=== PATIENT | female | born 1950 | race Caucasian/White ===

== ENCOUNTER → 2017-03-06 | Outpatient (CLI) | payer MEDICARE, MEDICAID ==
--- NOTE | 2017-03-06 12:21 | RADIOLOGY REPORT PS360 ---
FEMUR-RT-2 VIEWS HISTORY: RT THIGH PAIN ORDERING PHYSICIAN: Lebron Baez MD PATIENT AGE: 66 years COMPARISON: None FINDINGS: There are mild osteoarthritic changes of the tibia. There is bowing of the femur anteriorly and medially. 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 No fracture or dislocation. No lytic or blastic change. IMPRESSION: 1. No acute finding. 2. Osteoarthritis of the hip with bowing of the femur medially and anteriorly.
--- NOTE | 2017-03-06 12:21 | RADIOLOGY REPORT PS360 ---
FEMUR-RT-2 VIEWS HISTORY: RT THIGH PAIN ORDERING PHYSICIAN: Lebron Baez MD PATIENT AGE: 66 years COMPARISON: None FINDINGS: There are mild osteoarthritic changes of the tibia. There is bowing of the femur anteriorly and medially. There has been a prior dywpa-vka-ndru amputation. No fracture or dislocation. No lytic or blastic change. IMPRESSION: 1. No acute finding. 2. Osteoarthritis of the hip with bowing of the femur medially and anteriorly.
== END ==
LOC: RAD 09:50
DX: M79.651 Pain in right thigh (principal)

== ENCOUNTER 2017-03-07 09:24 | Emergency (ER) | payer MEDICARE, MEDICAID ==
[~2017-03-07] VITALS: Ht 165.1 cm; Wt 72.6 kg
--- NOTE | 2017-03-07 09:48 | [facility]gent Treatment Center Report ---
History of Present Issue Date/Time Seen by Provider 03/07/17 0948 Visit Reason Pt arrived:Walked Presenting Problem:PT ADVISES SHE VOMITED ONCE THIS MORNING AND SHE NOTICED SOME BLOOD ON HER TOILET PAPER THIS AM. PT HAS APPT WITH ON THURSDAY Location if Accident: Onset of symptoms date/time:/ or onset unknown for:MEDICAL HX UNKNOWN Have you (or family members/close friends) recently traveled outside the [place]? N If Yes, where/when: Have you had exposure to infectious disease within the past month? TB? Other? Specify: Source patient Exam Limitations no limitations Comment 66-year-old female presents today with complaints of vomiting 4 this a.m. and when she goes to the bathroom she had large amount of blood on the toilet paper. Patient states she has not had period in many years and believes it was coming from her vagina. Patient states she has a history of esophageal cancer. Has an appointment Thursday with Dr. Baez ALLERGIES Coded Allergies: EGGS (FOOD) (NA-NAUSEA 06/26/15) MILK (FOOD) (NA-NAUSEA 06/26/15) promethazine (WHOLE BODY ACHES 06/26/15) Home Medications Reported Medications MISCELLANEOUS (UNKNOWN MEDICATION) Omeprazole (Prilosec 20MG) 20 MG PO BID Metoclopramide Hydrochloride (Reglan 10MG) 10 MG PO TID Polyethylene Glycol 3350 (Miralax) 17 GM PO DAILY Sennosides (Senna Soft) 15 MG PO Q AFTERNOON VIT C/E/ZN/COPPR/LUTEIN/ZEAXAN (Ocuvite Lutein & Zeaxanthin Cp) 1 CAP PO DAILY History Medical History General Angina: No NC: No Hypertension? No Hyperlipidemia? No CHF? No COPD? No Asthma? No Hernia? Yes CVA? No Seizures? No Diabetes? No UTI? Yes Stones? No GB Disease: Yes Hepatitis? No Cataracts? No Glaucoma? No MRSA? No TB? No Cancer? Yes Site: ESOPHAGUS CANCER Immunization HX DT/Tetanus Unknown Flu NEVER Pneumonia NEVER Surgical Hx Previous Surgery?Y LEG/RIGHT BONE REMOVED KN STOMACH HAND, FINGERS REMOVED LFT BACK - BONE SPURS CHOLECYSTECTOMY Family History Family HX Diabetes Yes CAD Yes Hypertension No Hyperlipidemia No Cancer Yes TB No Social History Smoking Hx Smoker: Never Smoker Tobacco: No Alcohol Alcohol: No Review of Systems All Other Systems Reviewed and Negative Gastrointestinal see HPI, vomiting Genitourinary see HPI, vaginal discharge. Physical Exam Vital Signs Vital Signs Date Time Temp Pulse Resp B/P Pulse O2 O2 Flow FiO2 Ox Delivery Rate 03/07 1118 98.7 106 16 98 03/07 0937 98.7 106 16 98 - WBC >12,000 or <4,000 or 10% bands? 2 or more SIRS Criteria Met? B/P: MAP:77 Creatinine >2.0? UA output<0.5ml/kg/hr for 2 hrs? Platelet count >100,000? Lactate >2.0mmol/1? INR >1.2 or PTT > than 60 sec? Evidence of Organ Dysfunction? Provider documented clinical suspician of infection? Sepsis Criteria Count: 1 Sepsis Risk: General Appearance normal appearance, no apparent distress Respiratory Status Yes: trachea midline, chest symmetrical. No: respiratory distress. Lung Sounds bilateral: normal breath sounds, lungs clear. Cardiovascular normal exam, regular rate/rhythm, no peripheral edema Extremities prosthesis to RIGHT lower extremity Rectal normal exam, normal rectal tone, heme positive stool Neurologic alert, normal exam, oriented x 3 Medical Decision Making LABS/Meds/Orders Pt receiving controlled substance in ED? No Results/Orders Laboratory Tests 03/07/17 1103: Stool Occult Blood POSITIVE 03/07/17 1035: Sodium 140, Potassium 4.1, Chloride 105, Carbon Dioxide 30, BUN 22 H, Creatinine 0.9, Estimated Creat Clear 70, Estimated GFR (MDRD) 63, Glucose 132 H, Calcium 9.0, Total Bilirubin 0.3, AST 17, ALT 21, Alkaline Phosphatase 110, Total Protein 7.3, Albumin 3.4, Globulin 3.9 H, Albumin/Globulin Ratio 0.9 L 03/07/17 0958: WBC 8.2, RBC 4.41, Hgb 12.1 L, Hct 39.1, MCV 88.7, RDW 14.3, Plt Count 197, Gran % 85.9 H, Gran # 7.0, Total Counted 100, Lymphocytes % 11.2, Monocytes % 2.9, Neutrophils 78 H, Lymphocytes (Manual) 13, Lymphocytes # 0.9, Monocytes ( Manual) 8, Monocytes # 0.2, Eosinophils # (Manual) 1, Platelet Estimate NORMAL, PUBS MCHC 30.9 L, MCH 27.4 Orders Procedure Date/time Status STOOL OCCULT BLOOD 03/07 1042 Complete DIFFERENTIAL-WBC 03/07 0958 Complete CBC WITH AUTO DIFF 03/07 948 Complete CHEM 12 PROFILE 03/07 948 Complete Urine Test, Perform/ 03/07 0947 Active XRAY/CT/US XRAY/CT/US Ultrasound pelvis US Interpretation by discussed w/radiologist (garland) US results normal, Milagro stated uterus and ovaries are within normal limits, no free fluid Departure Departure Time of Disposition 1004 Disposition DC Home or Self Care(routine) Clinical Impression Primary Impression: Vomiting Qualifiers: Vomiting type: unspecified Vomiting Intractability: unspecified Nausea presence: without nausea Qualified Code: R11.11 - Vomiting without nausea Secondary Impressions: Positive occult stool blood test Condition STABLE Referrals Nestor HERNANDEZ,Lebron (Family) Patient Instructions DI for Vomiting -- Adult, Fecal Occult Blood Test, Nausea and Vomiting-Adult Additional Instructions Follow-up with PCP on Thursday, discussed further workup for his positive occult blood Zofran as needed for nausea Symptoms worsen or do not improve return or be seen in the ER Kimberyl diet and advance as tolerated Increase fluids Discharge Counseling Counseled pt/family regarding diagnosis, test results, medications/RX, home care, follow up needs Prescriptions Current Visit Scripts ONDANSETRON HCL (Zofran 4MG Tab) 4 MG PO Q8HP PRN NAUSEA AND VOMITING 3 Days at 1120
[2017-03-07 10:14] LABS: HEMOGLOBIN 12.1 g/dL (12.2-16.2); LYMPH # 0.9 K/mm3 (0.7-4.5); LYMPH % 11.2 % (10-50.0)
[2017-03-07 10:32] LABS: NEUTROPHILS 78 % (42-76)
--- NOTE | 2017-03-07 11:06 | RADIOLOGY REPORT PS360 ---
US PELVIS-TRANSVAGINAL ONLY HISTORY: vaginal bleeding postmenopausal bleeding. Vaginal bleeding? The patient states she thinks of blood may related to her bowel movement. Patient Age: 66 years: Female Ordering Physician: Unique Pacheco TECHNIQUE: Transvaginal pelvic ultrasound COMPARISON CT abdomen pelvis from February 2012 : FINDINGS. UTERUS: Appears normal in size:. 5.3 cm length x2.1 similar AP chest 3.4 cm transverse. Endometrial stripe is thin measuring 2.6 mm AP. No uterine mass identified Ovaries within normal limits bilaterally with normal color Doppler flow Right ovary: measures 1.2 x 0.9 x 1 cm. Unremarkable normal size. Left ovary: Unremarkable. Normal size 1.5 x 0.8 x 1 cm. . No free fluid in pelvis/no fluid in cul-de-sac IMPRESSION: no abnormalities identified Small postmenopausal uterus appears normal size but no uterine mass. . Endometrial stripe satisfactory Ovaries appear normal in size with no significant findings. No fluid in cul-de-sac
[2017-03-07 11:15] LABS: STOOL OCCULT BLOOD POSITIVE (NEG)
[2017-03-07 11:18] VITALS: BP 107/63
--- OUTSIDE RECORDS SUMMARY | 2017-03-18 17:35 | External Medical Summary Rpt ---
Author Author , JIM FERNANDEZ Address Unknown Phone [email or web address] Care Team Providers Care Head Buyer Tobacco Name Role Phone ARNDAVID ROCAEL, ARNOLD Unavailable Unavailable ROCAEL ARNOLD ROCAEL, ARNOLD Unavailable Unavailable ROCAEL AYARAM, RAGHU, AYARAM, Unavailable Unavailable RAGHU BEINEKE PRAFUL, BEINEKE Unavailable Unavailable PRAFUL BESSON PATRICA, BESSON Unavailable Unavailable PATRICA BESSON, LONNIE A, Unavailable Unavailable BESSON, LONNIE A [facility] Unavailable Unavailable LIMB C, [facility] Unavailable Unavailable LIM[facility], [facility] DICKEY ALL, DICKEY ALL Unavailable Unavailable MAURICIO CHRISTIAN, MAURICIO Unavailable Unavailable CHRISTIAN [facility] & Unavailable [facility]available [facility] CHIPPS MATT & Unavailable Unavailable DUBILIER, CHIPPS MATT & DUBILIER YOUNG SOTO, Unavailable Unavailable YOUNG SOTO [facility] Unavailable Unavailable [facility], [facility] Unavailable Unavailable [facility], [facility] Unavailable Unavailable LAB, [facility] FILIPPO PIERRE, Unavailable Unavailable FILIPPO PIERRE ROSEMARY BARKLEYLAS, Unavailable Unavailable FILIPPO, [facility] Unavailable [facility]available [facility], [facility] CECILIA PHI, Unavailable Unavailable CECILIA PHI KELVIN, CAROLE, KELVIN, Unavailable Unavailable CAROLE FALLIS RONI, FALLIS Unavailable Unavailable RONI INTERMEDIATE TEACHER PROSTHETICS & Unavailable Unavailable ORTHOTI, INTERMEDIATE TEACHER PROSTHETICS & ORTHOTI INTERMEDIATE TEACHER PROSTHETICS & Unavailable Unavailable ORTHOTI, INTERMEDIATE TEACHER PROSTHETICS & ORTHOTI [facility] Un[facility] Unavailable INC, [facility] NYDIA MATHEW, QUINCY, Unavailable Unavailable NYDIA [facility], Unavailable Unavailable [facility], Unavailable Unavailable [facility] IMAM MOH, IMAM MOH Unavailable Unavailable JAMES BROWNE KEE, Unavailable Unavailable JAMES Willingham [facility], Unavailable Unavailable [facility] Un[facility], [facility] Cheri Richmond MD, Unavailable Unavailable Cheri Richmond MD [facility] Unavailable Unavailable [facility], [facility] Unavailable Unavailable HOLDINGS, [facility] Unavailable Unavailable INTERNAL MED, [facility] CAL[place]RESE ROCAEL, CALABRESE Unavailable Unavailable ROCAEL [facility] Unavailable Unavailable SERVICES, [facility] ZAYNAB WORTHY Unavailable Unavailable ZAYNAB SOSA, Unavailable Unavailable ZAYNAB SOSA, Unavailable Unavailable ALEM QUESADA, Unavailable Unavailable ALEM WORTHY JR, Unavailable Unavailable ERLIN HERNANDEZ JR, JR Unavailable Unavailable F, ERLIN BELLO JR F RUTHY ESTEVEZ, Unavailable Unavailable RUTHY ESTEVEZ JAMES S, Unavailable Unavailable ALEM DELEON MUSIC, MUSIC Unavailable Unavailable MUSIC ELIZABETH, MUSIC ELIZABETH Unavailable Unavailable ROWAN QAI, ROWAN QAI Unavailable Unavailable [facility] Unavailable Unavailable LAB, [facility] Unavailable Unavailable LAB, [facility] GOMES MAHSA, GOMES MAHSA Unavailable Unavailable GOMES, PATRICK, GOMES, Unavailable Unavailable PATRICK BLANCA TOD, BLANCA TOD Unavailable Unavailable SCHULSTPRISCA, BRENDAN, Unavailable Unavailable ANURAGSTAD, BRENDAN RANDEE, THANG Parrish, RANDEE, Unavailable Unavailable THANG Parrish [facility] Unavailable Unavailable EQUIPME, [facility] Unavailable Unavailable E[facility], [facility] KARIME JUAREZ, Unavailable Unavailable MILAN JUAREZARET H [facility], Unavailable Unavailable [facility] USERY AND, USERY AND Unavailable Unavailable KEYUR WRIGHT Unavailable Unavailable Purpose Continuity of Care Document - 06-08-2007 through 2016 Problems Code Diagnosis DOS Provider Status [id number] ACQUIRED 12-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 BILATERAL R35449 VITREOUS 08-27-2016 [facility] [place], N RIGHT EYE P.S.[facility]. K90046 VITREOUS 08-27-2016 [facility] [place], N LEFT EYE P.S.C. J069 ACUTE UPPER 06-02-2016 [facility] RESPIRATORY INFECTION UNSPECIFIED [id number] PAIN IN 04-27-2016 [facility] RIGHT LEG HOME [facility]ICAL EQUIPME N62838 PAIN IN 04-27-2016 [facility] LEFT LEG HOME MEDICAL EQUIPME [id number] COMPLETE 04-27-2016 [facility] TRAUM AMP HOME BETWN KNEE MEDICAL ANKLE LT EQUIPME LEG SEQ Z9710 PRESENCE 04-27-2016 [facility] ARTIFICIAL HOME LIMB MEDICAL COMPLETE EQUIPME PARTIAL UNS M150 PRIMARY 11-15-2015 [facility] GENERALIZED OSTEOARTHRI TIS M1611 UNILATERAL 10-30-2015 [place] PRIMARY [facility] OSTEOARTHRI IMAGING ASS TIS RIGHT HIP N23460 PAIN IN 10-30-2015 [place] RIGHT HIP MEDICAL IMAGING ASS H3531 NONEXUDATIV 08-22-2015 [facility] [place], AGE-RELATED P.S.C. MACULAR DEGENERATIO N R634 ABNORMAL 07-27-2015 [facility] R700 ELEVATED 07-27-2015 [facility]OC[facility]TE [facility] INC SEDIMENTATI ON RATE R937 ABN FIND ON 07-27-2015 [place] DX IMAG MEDICAL OTH PART IMAGING ASS MUSCULOSKEL ETAL SYS Z8501 PERSONAL 07-27-2015 [place] HISTORY MEDICAL MALIGNANT IMAGING ASS NEOPLASM OF ESOPHAGUS K449 DIAPHRAGMAT 06-26-2015 [place] IC HERNIA MEDICAL W/O IMAGING ASS OBSTRUCTION OR GANGRENE Z122 ENCOUNTER 06-26-2015 [place] SCREENING MEDICAL MALIG IMAGING ASS NEOPLASM RESPIR ORGANS L0889 OTH SPEC 06-14-2015 DERMATOLOGY LOCAL INFECTIONS [facility] THE SKIN & PSC SUBQ TISSUE L219 SEBORRHEIC 06-14-2015 DERMATOLOGY DERMATITIS UNSPECIFIED [facility] 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 UNSPECIFIED F00019C UNS OPEN 06-13-2015 [facility] WOUND UNS [facility] TOES W/O INC DAMAGE NAIL INITIAL B078 OTHER VIRAL 06-12-2015 [facility] RONI WARTS I890 LYMPHEDEMA 06-12-2015 [facility] RONI NOT ELSEWHERE CLASSIFIED M2570 OSTEOPHYTE 06-12-2015 [facility] RONI UNSPECIFIED JOINT A14411 PAIN IN 06-12-2015 [facility] RONI LEFT FOOT K5900 CONSTIPATIO 05-17-2015 COM[facility]ED N PHYSICIANS UNSPECIFIED LA H74468 PRIMARY 05-17-2015 [place] OSTEOARTHRI MEDICAL TIS LEFT IMAGING ASS ANKLE AND FOOT P83553 UNSPECIFIED 05-17-2015 [facility] ACQUIRED [facility] DEFORMITY INC OF LEFT LOWER LEG M7732 CALCANEAL 05-17-2015 [facility] SPUR LEFT MEDICAL FOOT IMAGING ASS S60024O COMPLETE 04-30-2015 [facility] TRAUM AMP ARTIFICIAL BETWN KNEE LIMB C ANKLE UNS LEG INIT Z09 ENC F/U 03-22-2015 DERMATOLOGY EXAM AFTR CMPL TX OTH [facility] THAN ELLIE PSC NEOPLSM 47159 UNS 02-14-2015 [facility] GASTRITIS&G PHYSICIANS ASTRODUODIT GROUP IS W/O MENTION HEMORR 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 UNSPECIFIED MED SITE 21023 MIGRAINE 02-08-2015 [facility] UNSP W/O VALLEY INTRACT W/O INTERNAL STATUS MED MIGRAINOSUS 41315 REFLUX 02-08-2015 [facility] ESOPHAGITIS VALLEY INTERNAL MED 77499 UNSPECIFIED 02-08-2015 [facility] VAL[facility] ARTHROPATHY INTERNAL MULTIPLE MED SITES 18829 OTHER 02-08-2015 [facility] ABNORMAL VALLEY GLUCOSE INTERNAL MED 2859 UNSPECIFIED 02-02-2015 [facility] ANEMIA PHYSICIANS GROUP 85997 OTHER 02-02-2015 [facility] ESOPHAGITIS MATT & DUBILIER 5303 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 65918 OTHER SPEC 02-02-2015 [facility] GASTRITIS MATT & WITHOUT DUBILIER MENTION HEMORRHAGE 5533 DIAPHRAGMAT 02-02-2015 [facility] CONSTANTINE W/O PHYSICIANS MENTION GROUP OBSTRUCTION /GANGREN V1003 PERSONAL 02-02-2015 [facility] HISTORY PHYSICIANS MALIGNANT GROUP NEOPLASM ESOPHAGUS 2858 OTHER 01-22-2015 [facility] SPECIFIED PHYSICIANS ANEMIAS GROUP 2809 UNSPECIFIED 01-16-2015 [facility] IRON ALAMOGORDO DEFICIENCY INTERNAL ANEMIA MED 54224 ESOPHAGEAL 01-16-2015 [facility] REFLUX ALAMOGORDO INTERNAL MED 7248 OTHER 01-16-2015 [facility] SYMPTOMS VALLEY REFERABLE INTERNAL TO BACK MED 04716 DIAB W/O 12-29-2014 [facility] COMP TYPE PHYSICIANS II/UNS NOT LA STATED UNCNTRL 2689 UNSPECIFIED 12-29-2014 [facility] VITAMIN D PHYSICIANS DEFICIENCY LA 2724 OTHER AND 12-29-2014 COM[facility]ED UNSPECIFIED PHYSICIANS LA HYPERLIPIDE ZOE 4019 UNSPECIFIED 12-28-2014 [facility] ESSENTIAL VALLEY HYPERTENSIO INTERNAL N MED 7906 OTHER 12-28-2014 [facility] ABNORMAL VALLEY BLOOD INTERNAL CHEMISTRY MED 8970 TRAUMAT AMP 11-01-2014 [facility] LE[facility] UNILAT ARTIFICIAL BELW KNEE LIMB C W/O COMP 79193 PAIN IN 09-20-2014 [facility] JOINT, [facility] LOWER LEG INC 11972 OTHER LATE 09-20-2014 [facility] AMPUTATION [facility] STUMP INC COMPLICATIO N [facility] 86395 NONEXUDATIV 03-15-2014 [facility] E SENILE JAM MACULAR DEGENERATIO N RETINA 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 7242 LUMBAGO 11-12-2013 [facility] 7243 SCIATICA 11-12-2013 [facility] INC V5869 LONG-TERM 09-12-2013 [facility] (CURRENT) [facility] USE OF INC OTHER MEDICATIONS 4293 CARDIOMEGAL 08-25-2013 [place] Y MEDICAL [facility] ASS V6759 OTHER 08-25-2013 [place] FOLLOW-UP MEDICAL EXAMINATION IMAGING ASS OTHER V676 COMBINED 08-25-2013 [place] TREATMENT MEDICAL FOLLOW-UP IMAGING ASS EXAMINATION V711 OBSERVATION 08-25-2013 [facility] FOR [facility] SUSPECTED INC MALIGNANT NEOPLASM 461.9 461.9 ACUTE 04-17-2013 [facility] SINUSITIS [facility] 4619 ACUTE 04-17-2013 [facility], [facility] UNSPECIFIED SERVICES 98272 OTHER 04-17-2013 [facility] DISEASES OF EMERGENCY NASAL SERVICES CAVITY AND SINUSES 7291 UNSPECIFIED 04-17-2013 [place] [facility] MYOSITIS 7862 COUGH 04-17-2013 [facility] [facility] V14.8 V14.8 04-17-2013 [facility] HX-DRUG [facility] V148 PERSONAL 04-17-2013 [facility] HISTORY [facility] ALLERGY OTH INC SPEC MEDICINAL AGTS 69420 NUCLEAR 03-16-2013 [facility] SCLEROSIS JAM 6929 CONTACT 12-03-2012 [facility] DERMATITIS& VALLEY OTHER INTERNAL ECZEMA DUE MED UNSPEC CAUSE V103 PERSONAL 09-17-2012 [place] HISTORY OF MEDICAL MALIGNANT IMAGING ASS NEOPLASM OF BREAST V8741 PERSONAL 09-17-2012 [place] HISTORY OF MEDICAL ANTINEOPLAS IMAGING ASS TIC CHEMOTHERAP Y 9092 LATE EFFECT 05-17-2012 [facility] OF [facility] RADIATION INC V0382 NEED PROPH 03-29-2012 [facility] VACCINATION VALLEY AGAINST INTERNAL STREP MED PNEUMONE V061 NEED PROPH 03-29-2012 [facility] VAC W/COMB VALLEY DIPHTH-TETA INTERNAL NUS-PERTUSS MED VAC V0481 NEED 02-27-2012 [facility] PROPHYLACTI VALLEY C INTERNAL VACCINATION MED &INOCULATIO N FLU 2301 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[facility] ESOPHAGUS INC 5920 CALCULUS OF 02-25-2012 [place] [facility] 43722 DEHYDRATION 11-21-2011 [facility] VALLEY INTERNAL MED 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 4778 ALLERGIC 09-05-2011 [facility] RHINITIS VALLEY DUE TO INTERNAL OTHER MED ALLERGEN 97451 UNSPECIFIED 09-01-2011 [place] [facility] ESOPHAGITIS [facility] 51644 ACUTE 09-01-2011 PATHOLOGY & GASTRITIS CYTOLOGY WITHOUT LAB MENTION OF HEMORRHAGE 13116 ATROPHIC 09-01-2011 PATHOLOGY & GASTRITIS CYTOLOGY WITHOUT LAB MENTION OF HEMORRHAGE 65601 OTHER 08-13-2011 [place] DISEASES OF MEDICAL LUNG NOT IMAGING ASS ELSEWHERE CLASSIFIED 18671 PAIN IN 05-23-2011 [place] JOINT MEDICAL PELVIC IMAGING ASS REGION AND THIGH 45028 UNSPECIFIED 05-23-2011 [place] [facility] OSTEOPOROSI IMAGING ASS S 7937 NONSPC ABN 05-23-2011 [place] FINDNG RAD MEDICAL & OTH EXM IMAGING ASS MUSCULSKELT L SYS 55897 DYSPHAGIA 05-19-2011 [place] [facility] UNSPECIFIED SERV [facility] 26915 ACUTE 09-02-2010 PATHOLOGY & ESOPHAGITIS CYTOLOGY LAB 97442 ULCER OF 09-02-2010 PATHOLOGY & ESOPHAGUS CYTOLOGY WITHOUT LAB BLEEDING 27318 ULCER OF 09-02-2010 [place] [facility] ESOPHAGUS SERV WITH F[facility]ATIO BLEEDING 7934 NONSPECIFIC 09-02-2010 [place] [facility] ABN SERV FINDING RAD [facility] & OTH EXAM GI TRACT 91779 FLUSHING 08-29-2010 [place] [address] UNSPECIFIED 08-16-2010 [facility] ARTHROPATHY INTERNAL , LOWER LEG MED 7823 EDEMA 08-05-2010 [facility] INTERNAL MED 19759 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 INC 5693 HEMORRHAGE 03-18-2010 [facility] OF RECTUM [facility] AND ANUS INC 23188 OTHER 03-18-2010 [facility] SPECIFIED [facility] DISORDER OF INC INTESTINES 5781 BLOOD IN 03-18-2010 [place] [facility] STOOL SERV [facility] 32852 UNSPECIFIED 03-06-2010 [place] [address] VITREOUS 03-06-2010 [facility] DEGENERATIO JAM N V551 ATTENTION 12-27-2009 [facility] TO [facility] GASTROSTOMY INC 89693 UNSPECIFIED 05-25-2009 [facility] CONJUNCTIVI INTERNAL TIS MED 1508 MALIGNANT 04-17-2009 [facility] NEOPLASM [facility] OTHER SPEC INC PART ESOPHAGUS 12539 UNSPEC 04-09-2009 [facility] POLYARTHROP VALLEY ATHY/POLYAR INTERNAL THRIT MX MED SITES 7069 UNSPECIFIED 03-13-2009 NEW DISEASE OF [place] SEBACEOUS [facility] PSC GLANDS V762 SCREENING 01-25-2009 PATHOLOGY & FOR CYTOLOGY MALIGNANT LAB NEOPLASM OF THE CERVIX 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 00452 OTHER 08-18-2008 [facility] MALAISE AND [facility] FATIGUE INC 41743 PERIPH 08-16-2008 [facility], CHORIORETIN ALEM AL SCARS 6829 CELLULITIS 06-26-2008 [facility] AND ABSCESS VALLEY OF INTERNAL UNSPECIFIED MED SITE 2110 BENIGN 05-22-2008 [place] [facility] NEOPLASM OF SERV ESOPHAGUS FOUNDATIO 7804 DIZZINESS 03-06-2008 [facility] AND VALLEY GIDDINESS INTERNAL MED 03464 OTHER 2007 [facility] DYSPHAGIA [facility] INC 2639 UNSPECIFIED 10-24-2007 [facility] PROTEIN-AMANDO ORIE MALNUTRITIO N 35871 MUCOSITIS 09-20-2007 [facility] DUE TO VALLEY ANTINEOPLAS INTERNAL TIC THERAPY MED 5990 URINARY 09-20-2007 [facility] TRACT VALLEY INFECTION INTERNAL SITE NOT MED SPECIFIED 24545 VOMITING 09-17-2007 [facility] 56550 SWELLING OF 09-13-2007 [facility] PROF SERV V5811 ENCOUNTER 09-08-2007 [facility] FOR [facility] ANTINEOPLAS INC TIC CHEMOTHERAP Y V153 PERS HX 07-26-2007 [facility] PRESENTING [facility] V5881 FITTING AND 07-26-2007 [facility] OF VASCULAR CATHETER 9961 MECH COMP 07-23-2007 [facility] VASCULAR DEVICE IMPLANT&GRA FT V441 GASTROSTOMY 07-23-2007 [facility] 48890 NAUSEA WITH 06-29-2007 [facility] VOMITING [facility] 82982 SHORTNESS 06-24-2007 [facility] OF BREATH [facility] INC 07570 MECHANICAL 06-19-2007 [facility] COMPLICATIO [facility] N OF INC GASTROSTOMY Allergies, Adverse Reactions, Alerts Type Drug Allergy Food Allergy Adverse Reaction to Substance Substance Reaction Severity Promethazine "WHOLE BODY ACHES" Unknown EGGS (FOOD) NA-NAUSEA/VOMITING Unknown MILK (FOOD) NAUSEA/VOMITING Unknown Immunization Name Date Rout CVX Reac Dose Comm Prov Is Faci e tion ent ider Refu lity Give sed n PPSV 10-2 33 [facility] No LICK 23 2-20 ECOH ING VACC 12 JR VALL INE OPAL EY 2 INTE YRS RNAL OR MED OLDE R FOR SUBQ /IM USE TDAP 10-2 115 [facility] No LICK 2-20 ECHO ING VACC 12 JR VALL INE OPAL EY 7 INTE YRS/ RNAL > IM MED Vital Signs 04-17-2013 09:24 Name Value Interpretat Reference Comment ion Range Body 99.3 [degF] Temperature BP 65 mm[Hg] Diastolic BP Systolic 124 mm[Hg] Heart 88 /min Rate/Pulse O2% 98 % Respiratory 20 /min Rate 04-17-2013 09:12 Name Value Interpretat Reference Comment ion Range BP 66 mm[Hg] Diastolic BP Systolic 132 mm[Hg] Heart 94 /min Rate/Pulse Respiratory 20 /min Rate 04-17-2013 08:30 Name Value Interpretat Reference Comment ion Range O2% 99 % Results Labs Lab Lab Date Result Refere Interp Status Commen Order Detail nces retati t Range on Hemoglobin.gastrointestinal [Presence] in Stool (03-07-2017 11:03) Hemoglo POSITIV NEG complet bin.gas 017 E ed trointe 11:03 stinal [Presen ce] in Stool --1st specime n Differential panel, method unspecified - (03-07-2017 09:58) LYMPH 13 % 10% - Normal complet 017 50% ed 09:58 Platele NORMAL complet ts 017 ed [Presen 09:58 ce] in Blood by Light microsc opy STREP SCREEN (RAPID) (04-17-2013 08:47) STREP NEGATIV complet SCREEN 013 E ed (RAPID) 08:47 Procedures Procedure DOS Code Location Performer Comment PROSTHETI L8420 INTERMEDIATE TEACHER INTERMEDIATE TEACHER C SOCK 7 PROSTHETI PROSTHETI MULTIPLE CS & CS & PLY BELOW ORTHOTI ORTHOTI KNEE EACH 00556 COMBINED COMBINED HYDROXY 7 PHYSICIAN PHYSICIAN INCLUDES S LA S LA FRACTIONS IF PERFORMED COMPREHEN 18852 COMBINED COMBINED SIVE 7 PHYSICIAN PHYSICIAN METABOLIC S LA S LA PANEL DETERMINA 77514 [facility] REFRACTIV C[facility], E STATE P.S.C. OPHTHALMO 83016 [facility] FLYNN 7 EYE EXTENDED CENTER, RETINAL P.S.C. DRAWING I&R 1ST INJECTION J0696 FA[facility] HARMON 6 ROCAEL ROCAEL CEFTRIAXO NE SODIUM PER 250 MG HIGH K0004 [facility] MARTI STRENGTH 6 HOME HOME [facility] E[facility] EQUIPME WHEELCHAI R HIGH K0004 MARTI MARTI STRENGTH 6 HOME [facility] EQUIPME WHEELCHAI R DETERMINA 29019 [facility] DUENAS 6 EYE REFRACTIV CENTER, E STATE P.S.C. HIGH K0004 MARTI MARTI STRENGTH 6 HOME [facility] EQUIPME EQUIPME WHEELCHAI R HIGH K0004 MARTI MARTI STRENGTH 6 HOME HOME [facility] EQUIPME EQUIPME WHEELCHAI R HIGH K0004 MARTI MARTI STRENGTH 6 HOME HOME [facility] EQUIPME EQUIPME WHEELCHAI R HIGH K0004 MARTI MARTI STRENGTH 6 HOME HOME [facility] EQUIPME EQUIPME WHEELCHAI R RADEX HIP 93474 [place] FILIPPO 6 MEDICAL PIERRE UNILATERA IMAGING L WITH ASS PELVIS 2-3 VIEWS HIGH K0004 MARTI MARTI STRENGTH 6 HOME HOME [facility] EQUIPME EQUIPME WHEELCHAI R HIGH K0004 MARTI MARTI STRENGTH 6 HOME HOME [facility] EQUIPME EQUIPME WHEELCHAI R 26213 COMBINED COMBINED HYDROXY 6 PHYSICIAN PHYSICIAN INCLUDES S LA S LA FRACTIONS IF PERFORMED HIGH K0004 AMRTI [facility] 6 HOME HOME [facility] EQUIPME [facility]QU[facility]ME [facility] OPHTHALMO 56517 [facility] FLYNN 6 EYE JAM EXTENDED CENTER, RETINAL P.S.C. DRAWING I&R 1ST DETERMINA 13348 [facility] RECINOS[place] 6 EYE EYE REFRACTIV CENTER, CENTER, E STATE P.S.C. P.S.C. HIGH K0004 MARTI [facility] 6 HOME HOME [facility] EQUIPME EQUIPME [facility] BONE 42216 [place] NOBLE ALL &/JOINT 6 MEDICAL IMAGING IMAGING WHOLE ASS BODY RADIOLOGI 57119 [place] NOBLE ALL C 6 MEDICAL EXAMINATI IMAGING ON PELVIS ASS 1/2 VIEWS HIGH K0004 MARTI KIDD [facility] 6 HOME HOME [facility] EQUIPME [facility]QU[facility] LOCM Q9967 [facility] MORRIS [phone] MEM HOSP [facility]OS[facility] MG/ML INC INC IODINE CONCENTRA TION PER ML COLLECTIO 41407 [facility] MORRIS N VENOUS 6 MEM HOS[facility] MEM HOS[facility] [place] [address] [facility] M[facility] UREA 6 MEM HOSP [facility]OS[facility] NITROGEN INC INC QUANTITAT KONSTANTIN CREATININ 84603 [facility] M[facility] E BLOOD 6 MEM HOSP MEM HOSP INC INC CT THORAX 61931 [place] JUDY 6 MEDICAL PRAFUL W/CONTRAS IMAGING T ASS MATERIAL NON-INVAS 62914 [facility] M[facility] KONSTANTIN 6 MEM HOSP MEM HOS[facility] PHYSIOLOG INC INC IC STUDY EXTREMITY 3 LEVLS DESTRUCTI 05781 [facility] MAURICIO ON BENIGN 6 RONI CHRISTIAN LESIONS 15/> HIGH K0004 M[facility]I KIDD [facility] 5 HOME HOME [facility] [place] [address] COMBINED COMBINED BLOOD/URI 5 PHYSICIAN PHYSICIAN C ACID S LA S LA ANTINUCLE 34993 [facility] AR 5 SAI SAI ANTIBODIE HOLDINGS HOLDINGS S GLORY RHEUMATOI 63974 COMBINED COMBINED D FACTOR 5 PHYSICIAN PHYSICIAN QUALITATI S LA S LA VE SEDIMENTA 05824 COMBINED COMBINED TION RATE 5 PHYSICIAN PHYSICIAN RBC S LA S LA NON-AUTOM ATED RADEX 55634 [place] DICKEY ALL FOOT 5 MEDICAL COMPLETE IMAGING MINIMUM 3 [place] [address] COMBINED COMBINED THYROID 5 PHYSICIAN PHYSICIAN STIMULATI S LA S LA NG HORMONE TSH SEAT E0156 [facility] KIDD ATTACHMEN 5 HOME HOME T [facility] EQUIPME EQUIPME WALKER E0143 MARTI MARTI FOLDING 5 HOME HOME [facility]ICAL ADJUSTABL EQUIPME EQUIPME E/FIXED HEIGHT PROSTHETI L8420 BLUE BLUE C SOCK 5 GRASS GRASS MULTIPLE ARTIFICIA ARTIFICIA PLY BELOW L LIMB C L LIMB C KNEE EACH HIGH K0004 [facility]I KIDD STRENGTH 5 HOME HOME [facility] EQUIPME EQUIPME WHEELCHAI R LIPID 35892 [facility] PANEL 5 MEM HOS[facility]OS[facility] INC INC COMPREHEN 02707 A[facility] SIVE 5 MEM HOSP [facility]OS[facility] METABOLIC INC INC PANEL HEMOGLOBI 47908 [facility] N 5 MEM HOS[facility] MEM HOS[facility] GLYCOSYLA INC INC BEAU A1C BLOOD 01291 [facility] COUNT 5 MEM H[facility]OS[facility] COMPLETE INC INC AUTO&AUTO DIFRNTL WBC COLLECTIO 74802 ALEXANDRA [facility] N VENOUS 5 [facility] BLOOD INC INC VENIPUNCT URE EGD 19918 [facility] TOD TRANSORAL 5 PHYSICIAN BIOPSY S GROUP SINGLE/[place] [address] ALEXANDRA M[facility]RIS INFUSION 5 [facility] THERAPY/P INC INC ROPHYLAXI S /DX 1ST TO 1 [place] [address] CHIPPS CALABRESE SURG 5 [facility]ATT [facility] ROCAEL PATHOLOGY DUBILIER GROSS&[place] [address] ALEXANDRA [facility] THERAPY INC INC PROPHYLAX IS/DX EA HOUR BLOOD 52662 ALEXANDRA [facility] COUNT 5 [facility] COMPLETE INC INC AUTO&AUTO DIFRNTL WBC IRON 41568 ALEXANDRA ALEXANDRA BINDING 5 [facility] CAPACITY INC INC COLLECTIO 85267 A[facility]ANDRA [place] N VENOUS 5 [facility] BLOOD INC INC VENIPUNCT URE BLOOD 84928 ALEXANDRA [facility] OCCULT 5 [facility] PEROXIDAS INC INC E ACTV QUAL FECES 1-3 [place] [address] ALEXANDRA MORRIS [id number] 5 [facility] [place] [address] ALEXANDRA M[facility]IS FOLIC 5 [facility] [place] [address] ALEXANDRA ALEXANDRA IRON 5 [place] [address] ALEXANDRA M[facility] FERRITIN 5 [facility] INC INC 25 36663 COMBINED COMBINED HYDROXY 5 PHYSICIAN PHYSICIAN INCLUDES S LA S LA FRACTIONS IF PERFORMED HEMOGLOBI 38361 COMBINED COMBINED N 5 PHYSICIAN PHYSICIAN GLYCOSYLA S LA S LA BEAU A1C BLOOD 47312 COMBINED COMBINED COUNT 5 PHYSICIAN PHYSICIAN COMPLETE S LA S LA AUTO&AUTO DIFRNTL WBC COMPREHEN 93787 COMBINED COMBINED SIVE 5 PHYSICIAN PHYSICIAN METABOLIC S LA S LA PANEL LIPID 87729 COMBINED COMBINED PANEL 5 PHYSICIAN PHYSICIAN S LA S LA PROSTHETI L8400 BLUE BLUE C SHEATH 5 GRASS GRASS BELOW ARTIFICIA ARTIFICIA KNEE EACH L LIMB C L LIMB C PROSTHETI L8420 BLUE BLUE C SOCK 5 GRASS GRASS MULTIPLE ARTIFICIA ARTIFICIA PLY BELOW L LIMB C L LIMB C KNEE EACH LIPID 78284 ALEXANDRA MORRIS PANEL 5 [facility] INC INC COMPREHEN 84878 ALEXANDRA M[facility]RIS SIVE 5 [facility] METABOLIC INC INC PANEL HEMOGLOBI 68821 ALEXANDRA [facility]RIS N 5 [facility] GLYCOSYLA INC INC BEAU A1C BLOOD 83488 ALEXANDRA MORRIS COUNT 5 [facility] COMPLETE INC INC AUTO&AUTO DIFRNTL WBC 25 26175 ALEXANDRA MORRIS HYDROXY 5 [facility] INCLUDES INC INC FRACTIONS IF PERFORMED COLLECTIO 85596 ALEXANDRA MORRIS N VENOUS 5 [facility] BLO[facility] INC INC VENIPUNCT URE RADIOLOGI 67969 [place] [facility] C 5 MEDICAL PRAFUL EXAMINATI IMAGING ON KNEE 3 ASS VIEWS LIPID 46497 ALEXANDRA MORRIS PANEL 5 [facility] INC INC COLLECTIO 97837 ALEXANDRA MORRIS N VENOUS 5 MEM [facility] BLOOD INC INC VENIPUNCT URE BLOOD 02445 ALEXANDRAREHANA MORRIS COUNT 5 [facility] COMPLETE INC INC AUTO&AUTO DIFRNTL WBC COMPREHEN 66227 ALEXANDRA MORRIS SIVE 5 [facility] METABOLIC INC INC PANEL DETERMINA 30692 ZAYNAB WORTHY TION 4 IAN SOSA REFRACTIV E STATE OPHTHALMO 49539 ZAYNAB WORTHY SCPY 4 IAN JAM EXTENDED RETINAL DRAWING I&R 1ST ADD LW L5665 BLUE BLUE EXTRM 4 GRASS GRASS SOCKT ARTIFICIA ARTIFICIA INSRT L LIMB C L LIMB C MXIDUROME TER BELW KNEE ADDITION L5668 BLUE BLUE LOW 4 GRASS GRASS EXTREM ARTIFICIA ARTIFICIA BELOW L LIMB C L LIMB C KNEE MOLDED DIST CUSHN LIPID 88413 ALEXANDRA MORRIS PANEL 4 [facility] INC INC COLLECTIO 92246 ALEXANDRA MORRIS N VENOUS 4 [facility] BLOOD INC INC VENIPUNCT URE BLOOD 32311 ALEXANDRA MORRIS COUNT 4 [facility] COMPLETE INC INC AUTO&AUTO DIFRNTL WBC COMPREHEN 92240 ALEXANDRA MORRIS SIVE 4 [facility] METABOLIC INC INC PANEL PROSTHETI L8400 BLUE BLUE C SHEATH 4 GRASS GRASS BELOW ARTIFICIA ARTIFICIA KNEE EACH L LIMB C L LIMB C PROSTHETI L8420 BLUE BLUE C SOCK 4 GRASS GRASS MULTIPLE ARTIFICIA ARTIFICIA PLY BELOW L LIMB C L LIMB C KNEE EACH RADEX 78577 [place] FILIPPO SPINE 4 MEDICAL PIERRE LUMBOSACR IMAGING AL ASS MINIMUM 4 VIEWS OPHTHALMO 22966 ZAYNAB WORTHY SCPY 4 IAN SOSA EXTENDED RETINAL DRAWING I&R 1ST DETERMINA 21815 ZAYNAB DUENAS 4 [place] [address] ALEXANDRA MORRIS INFUSION 4 [facility] THERAPY/P INC INC ROPHYLAXI S /DX 1ST TO 1 HR ESOPHAGOG 36691 [place] ELISEO BRAGG ASTRODUOD 4 MEDICAL ENOSCOPY [place] [address] ALEXANDRA MORRIS INFUSION 4 [facility] THERAPY INC INC PROPHYLAX IS/DX EA HOUR 3D 86469 ALEXANDRA MORRIS RENDERING 4 [facility] INC INC W/INTERP& POSTPROC DIFF WORK STATION LIPID 13310 ALEXANDRA MORRIS PANEL 4 [facility] INC INC COLLECTIO 05416 ALEXANDRA MORRIS N VENOUS 4 [facility] BLOOD INC INC VENIPUNCT URE CT THORAX 19452 [facility] FILIPPO W/O 4 MEDICAL [place] [address] [place] FILIP[place] MAXILLOFA 4 MEDICAL PIERRE CIAL W/O IMAGING CONTRAST ASS MATERIAL CT SOFT 36319 [place] FILIP[place] TISSUE 4 MEDICAL PIERRE NECK W/O IMAGING CONTRAST ASS MATERIAL COMPREHEN 80287 ALEXANDRA MORRIS SIVE 4 [facility] METABOLIC INC INC PANEL BLOOD 34058 ALEXANDRA MORRIS COUNT 4 [facility] COMPLETE INC INC AUTO&AUTO DIFRNTL WBC COLLECTIO 15827 ALEXANDRA MORRIS N VENOUS 4 [facility] BLOOD INC INC VENIPUNCT URE CREATININ 39547 ALEXANDRA MORRIS E BLOOD 4 [place] [address] ALEXANDRA MORRIS UREA 4 [facility] NITROGEN INC INC QUANTITAT KONSTANTIN IAADI 64797 ALEXANDRA MORRIS INFLUENZA 3 [facility] B VIRUS INC INC RADIOLOGI 76416 [facility] C EXAM 3 MEDICAL PIERRE CHEST 2 IMAGING VIEWS ASS FRONTAL&L ATERAL IAADI 95972 ALEXANDRA MORRIS INFFLUENZ 3 [facility] [place] [address] ALEXANDRA MORRIS STREPTOCO 3 [facility] CCUS INC INC GROUP A CUL BACT 35106 ALEXANDRA MORRIS XCPT 3 [facility] URINE INC INC BLOOD/STO OL AEROBIC ISOL OPHTHALMO 56311 ZAYNAB WORTHY SCPY 3 JAM JAM EXTENDED RETINAL DRAWING I&R 1ST DETERMINA 88673 ZAYNAB WORTHY TION 3 JAM JAM REFRACTIV E STATE BLOOD 38422 ALEXANDRA MORRIS COUNT 3 [facility] COMPLETE INC INC AUTO&AUTO DIFRNTL WBC COMPREHEN 60686 ALEXANDRA MORRIS SIVE 3 [facility] METABOLIC INC INC PANEL RADIOLOGI 09040 ALEXANDRA MORRIS C EXAM 3 [facility] CHEST 2 INC INC VIEWS FRONTAL&L ATERAL COLLECTIO 18387 ALEXANDRA MORRIS N VENOUS 3 [facility] BLOOD INC INC VENIPUNCT URE OPHTHALMO 73817 ZAYNAB WORTHY SCPY 3 JAM JAM EXTENDED RETINAL DRAWING I&R 1ST DETERMINA 35073 ZAYNAB WORTHY TION 3 JAM JAM REFRACTIV E STATE COLLECTIO 31952 ALEXANDRA MORRIS N VENOUS 3 [facility] [place] [address] ALEXANDRA MORRIS UREA 3 [facility] NITROGEN INC INC QUANTITAT KONSTANTIN CREATININ 04170 ALEXANDRA MORRIS E BLOOD 3 [facility] INC INC CT THORAX 54685 [place] FIL[place] W/O 3 MEDICAL PIERRE CONTRAST IMAGING MATERIAL ASS 3D 41086 [place] RENDERING 3 MEDICAL PIERRE IMAGING W/INTERP& [place] [address] ALEXANDRA MORRIS INFUSION 3 [facility] THERAPY INC INC PROPHYLAX IS/DX EA HOUR ESOPHAGOG 11738 TAM BRAGG ASTRODUOD 3 MEDICAL ENOSCOPY SERV TR[place] [address] COMBINED COMBINED THYROID 3 PHYSICIAN PHYSICIAN STIMULATI S LA S LA NG HORMONE TSH COLLECTIO 69871 COMBINED COMBINED N VENOUS 3 PHYSICIAN PHYSICIAN BLOOD S LA S LA VENIPUNCT URE BLOOD 70558 COMBINED COMBINED COUNT 3 PHYSICIAN PHYSICIAN COMPLETE S LA S LA AUTO&AUTO DIFRNTL WBC COMPREHEN 78563 COMBINED COMBINED SIVE 3 PHYSICIAN PHYSICIAN METABOLIC S LA S LA PANEL LIPID 16040 COMBINED COMBINED PANEL 3 [place] [address] ALEXANDRA MORRIS INFUSION 2 [facility] THERAPY INC [place] [address] ALEXANDRA ALEXANDRA INFUSION 2 [facility] THERAPY/P INC INC ROPHYLAXI S /DX 1ST TO 1 HR CATHETER C1726 ALEXANDRA MORRIS BALLOON 2 [facility] DILATATIO INC INC N NON-VASCU LAR EGD 07853 [place] GOM[place] MAHSA BALL[place] 2 MEDICAL DILATION SERV ESOPHAGUS FOUNDATIO <30 MM DIAM PPSV23 84633 [place] [facility] VACCINE 2 2 [facility] JR OPAL YRS OR INTERNAL OLDER FOR MED SUBQ/IM USE IM ADM 10879 [place] [facility] PRQ ID 2 [facility] OPAL SUBQ/IM INTERNAL NJXS 1 MED VACCINE TDAP 58684 [place] [facility] VACCINE 7 2 [facility] JR OPAL YRS/> IM INTERNAL MED INFLUENZA Q2038 [place] VACC 2 [facility] SPLIT INTERNAL INTERNAL VIRUS 3 MED MED YRS & > IM FLUZONE ADMINISTR G0008 [place] ATION OF 2 [facility] INFLUENZA [place] [address] ALEXANDRA ALEXANDRA ABDOMEN & 2 [facility] PELVIS INC INC W/[place] [address] [place] FIL[place] ABDOMEN & 2 MEDICAL PIERRE PELVIS IMAGING W/O ASS CONTRAST MATERIAL CT THORAX 43053 [place] FILIPPO 2 MEDICAL PIERRE W/CONTRAS IMAGING T ASS MATERIAL 3D 51778 [place] FIL[place] RENDERING 2 MEDICAL PIERRE IMAGING W/INTERP& ASS POSTPROC DIFF WORK STATION LOC Q9967 ALEXANDRA ALEXANDRA [phone] 2 [facility] MG/ML INC INC IODINE CONCENTRA TION PER ML COMPREHEN 18903 ALEXANDRA MORRIS SIVE 2 [facility] METABOLIC INC INC PANEL COLLECTIO 79906 ALEXANDRA MORRIS N VENOUS 2 [facility] BLOOD INC INC VENIPUNCT URE BLOOD 00671 ALEXANDRA MORRIS COUNT 2 [facility] COMPLETE INC INC AUTO&[place]NT[place] E[place] 218[address] [place] MAHSA [place] 2 MEDICAL DILATION SERV ESOPHAGUS FOUNDATIO <30 [place] [address] ALEXANDRA MORRIS INFUSION 2 [facility] THERAPY/P INC INC ROPHYLAXI S /DX 1ST TO 1 HR CATHETER C1726 ALEXANDRA MORRIS [place] 2 [facility] D[place]ATATIO [place] [address] ALEXANDRA MORRIS INFUSION 2 [facility] THERAPY INC INC PROPHYLAX IS/DX EA HOUR OPHTHALMO 42070 ZAYNAB WORTHY SCPY 2 JAM JAM EXTENDED RETINAL DRAWING I&R 1ST OPHTH 32115 ZAYNAB WORTHY MEDICAL 2 JAM JAM XM&EVAL COMPRHNSV ESTAB PT 1/> DETERMINA 83635 ZAYNAB WORTHY TION 2 JAM JAM REFRACTIV E STATE BLOOD 46653 ALEXANDRA MORRIS COUNT 2 [facility] COMPLETE INC INC AUTO&AUTO DIFRNTL WBC COLLECTIO 15079 ALEXANDRA MORRIS N VENOUS 2 [facility] BLOOD INC INC VENIPUNCT URE COMPREHEN 86130 ALEXANDRA MORRIS SIVE 2 [facility] [place] [address] ALEXANDRA MORRIS INFUSION 2 [facility] THERAPY/P INC INC ROPHYLAXI S /DX 1ST TO 1 HR CATHETER C1726 ALEXANDRA SANTAON [place] 2 [facility] DILATATIO INC [place] [address] [place] GOM[place] MAHSA [place] 2 MEDICAL DILATION SERV ESOPHAGUS FOUNDATIO <30 [place] [address] ALEXANDRA MORRIS INFUSION 2 [facility] THERAPY INC [place] [address] ALEXANDRA SANTAON INFUSION 2 [facility] THERAPY INC INC PROPHYLAX [place] [address] [place] MAH[place] 2 MEDICAL DILATION SERV ESOPHAGUS FOUNDATIO <30 MM DIAM CATHETER C1726 ALEXANDRA ALEXANDRA [place] 2 [facility] [place]ATAT[place] [address] ALEXANDRAREHANA SANTAON INFUSION 2 [facility] THERAPY/P INC INC ROPHYLAXI S /DX 1ST TO 1 HR DETERMINA 40245 ZAYNAB WORTHY TION 2 IAN JAM REFRACTIV E STATE OPHTHALMO 42599 ZAYNAB WORTHY SCPY 2 JAM JAM EXTENDED RETINAL DRAWING I&R 1ST THERAPEUT 33904 [facility] IC 2 [facility] OPAL PROPHYLAC INTERNAL TIC/DX MED INJECTION SUBQ/IM INJECTION J3301 [facility] [address] [place] [address] TRIAMCINO INTERNAL INTERNAL LONE MED MED ACETONIDE NOS 10 MG EGD 96692 [place] MAHSA TRANSORAL 2 MEDICAL BIOPSY SERV SINGLE/MU FOUNDATIO LTIPLE SPCL STN 31496 PATHOLOGY PATHOLOGY 2 I&R 2 & & EXCPT CYTOLOGY CYTOLOGY MICROORG/ LAB LAB ENZYME/IM CYT CATHETER C1726 ALEXANDRA SANTAON [facility] 2 [facility] DILATATIO INC INC N NON-VASCU LAR EGD 69267 [place] MAH[place] 2 MEDICAL DILATION SERV ESOPHAGUS FOUNDATIO <30 [place] [address] ALEXANDRA MORRIS INFUSION 2 [facility] THERAPY/P INC INC ROPHYLAXI S /DX 1ST TO 1 [place] [address] ALEXANDRA MORRIS INFUSION 2 [facility] THERAPY INC INC [place] [address] PATHOLOGY PATHOLOGY SURG 2 & & PATHOLOGY CYTOLOGY CYTOLOGY LAB LAB GROSS&JOSE CRUZ ROSCOPIC EXAM 3D 66514 ALEXANDRA MORRIS RENDERING 2 [facility] INC INC W/INTERP& POSTPROC DIFF WORK STATION COMPREHEN 90482 ALEXANDRA MORRIS SIVE 2 [facility] METABOLIC INC INC PANEL BLOOD 79110 ALEXANDRA MORRIS COUNT 2 [facility] COMPLETE INC INC AUTO&AUTO DIFRNTL WBC COLLECTIO 46024 ALEXANDRA MORRIS N VENOUS 2 [facility] BLOOD INC INC VENIPUNCT URE CT THORAX 30068 [place] EDMONDSONCHER W/O 2 MEDICAL PIER[place] [address] ALEXANDRA MORRIS ABDOMEN & 2 [facility] PELVIS INC INC W/O CONTRAST MATERIAL COLLECTIO 11531 COMBINED COMBINED N VENOUS 2 PHYSICIAN PHYSICIAN BLOOD S LA S LA VENIPUNCT URE BLOOD 39902 COMBINED COMBINED COUNT 2 PHYSICIAN PHYSICIAN COMPLETE S LA S LA AUTO&AUTO DIFRNTL WBC COMPREHEN 63556 COMBINED COMBINED SIVE 2 PHYSICIAN PHYSICIAN METABOLIC S LA S LA PANEL TRAVEL [address] MED 2 PHYSICIAN PHYSICIAN NEC LAB S LA S LA SPEC; [place] [address] ALEXANDRA MORRIS INFUSION 2 [facility] THERAPY/P INC INC ROPHYLAXI S /DX 1ST TO 1 HR CATHETER C1726 ALEXANDRA MORRIS [place] 2 [facility] DILATATIO INC INC N NON-VASCU LAR EGD 63149 [place] MAH[place] 2 MEDICAL DILATION SERV ESOPHAGUS FOUNDATIO <30 [place] [address] ALEXANDRA ALEXANDRA INFUSION 2 [facility] THERAPY INC [place] [address] ALEXANDRA ALEXANDRA INFUSION 2 [facility] THERAPY INC INC PROPHYLAX IS/[place]GD 26427 [place] MA[facility] 2 MEDICAL DILATION SERV ESOPHAGUS FOUNDATIO <30 MM DIAM CATHETER C1726 ALEXANDRA SANTAON [place] 2 [facility] [place]ATATIO [place] [address] ALEXANDRA ALEXANDRA INFUSION 2 [facility] THERAPY/P INC INC ROPHYLAXI S /DX 1ST TO 1 HR RADIOLOGI 08728 [place] BARKELY C EXAM 2 MEDICAL PIERRE CHEST 2 IMAGING VIEWS ASS FRONTAL&L ATERAL CT LUMBAR 92586 [place] BARKLEY SPINE 1 MEDICAL PIERRE W/O IMAGING CONTRAST ASS MATERIAL RADEX HIP 28307 [place] FILIPPO 1 MEDICAL PIERRE UNILATERA IMAGING L ASS COMPLETE MINIMUM 2 VIEWS RADIOLOGI 48947 [place] BARKLEY C 1 MEDICAL PIERRE EXAMINATI IMAGING ON FEMUR ASS 2 VIEWS 3D 10930 ALEXANDRA MORRIS RENDERING 1 [facility] INC INC W/INTERP& [place] DI[place] [address] ALEXANDRA MORRIS INFUSION 1 [facility] THERAPY INC [place] [address] ALEXANDRA MORRIS INFUSION 1 [facility] THERAPY/P INC INC ROPHYLAXI S /DX 1ST TO 1 HR CATHETER C1726 ALEXANDRA ALEXANDRA [place] 1 [facility] DILATATIO INC INC N [place]-VASCU [place]AR EGD 75015 [place] 1 MEDICAL DILATION SERV ESOPHAGUS FOUNDATIO <30 MM DIAM CATHETER C1726 ALEXANDRA ALEXANDRA [place] 1 [facility] [place]ATATIO [place] [address] ALEXANDRA SANTAON INFUSION 1 [facility] THERAPY/P INC INC ROPHYLAXI S /DX 1ST TO 1 HR EGD 07494 [place] MA[place] 1 MEDICAL DILATION SERV ESOPHAGUS FOUNDATIO <30 [place] [address] ALEXANDRA SANTAON INFUSION 1 [facility] THERAPY INC INC PROPHYLAX IS/DX EA HOUR OPHTHALMO 30971 ZAYNAB WORTHY SCPY 1 JAM JAM EXTENDED RETINAL DRAWING I&R 1ST EGD 86609 [place] MA[facility] 1 MEDICAL DILATION SERV ESOPHAGUS FOUNDATIO <30 [place] [address] ALEXANDRA MORRIS INFUSION 1 [facility] THERAPY/P INC INC ROPHYLAXI S /DX 1ST TO 1 HR CATHETER C1726 ALEXANDRA ALEXANDRA [place] 1 [facility] DILATATIO [place] [address] ALEXANDRA ALEXANDRA INFUSION 1 [facility] THERAPY INC INC PROPHYLAX IS/DX EA HOUR 3D 68039 [place] BARKLEY RENDERING 1 MEDICAL PIERRE IMAGING W/INTERP& ASS POSTPROC DIFF WORK STATION CT THORAX 03902 [place] FILIPPO 1 MEDICAL PIERRE W/[place] [address] [place] BARKLEY ABDOMEN & 1 MEDICAL PIERRE PELVIS IMAGING W/CONTRAS ASS T MATERIAL COMPREHEN 05050 COMBINED COMBINED SIVE 1 PHYSICIAN PHYSICIAN METABOLIC S LA S LA PANEL TRAVEL [address] MED 1 PHYSICIAN PHYSICIAN NEC LAB S LA S LA SPEC; PRORATD TRIP CHRG COLLECTIO 39574 COMBINED COMBINED N VENOUS 1 PHYSICIAN PHYSICIAN BLOOD S LA S [place] VENIPUNCT URE EGD 59304 [place] MA[facility] 1 MEDICAL DILATION SERV ESOPHAGUS FOUNDATIO <30 [place] [address] ALEXANDRA ALEXANDRA INFUSION 1 [facility] THERAPY/P INC INC ROPHYLAXI S /DX 1ST TO 1 HR CATHETER C1726 ALEXANDRA ALEXANDRA [place] 1 [facility] DILATATIO INC INC N NON-VASCU LAR EGD 62569 [place] MAH[place] TRANSORAL 1 MEDICAL BIOPSY SERV SINGLE/[place] [address] ALEXANDRA ALEXANDRA INFUSION 1 [facility] THERAPY INC INC PROPHYLAX IS/DX EA HOUR OPHTHALMO 52440 [facility] 1 IAN SOSA EXTENDED RETINAL DRAWING I&R 1ST OPHTH 05122 [facility] 1 IAN SOSA XM&EVAL COMPRHNSV ESTAB PT 1/> EGD 39179 [place] MA[place] TRANSORAL 1 MEDICAL BIOPSY SERV SINGLE/MU FOUNDATIO LTIPLE SPCL STN 50137 PATHOLOGY PATHOLOGY 2 I&R 1 & & EXCPT CYTOLOGY CYTOLOGY MICROORG/ LAB LAB ENZYME/[place] [address] ALEXANDRA ALEXANDRA INFUSION 1 [facility] THERAPY/P INC INC ROPHYLAXI S /DX 1ST TO 1 HR CATHETER C1726 ALEXANDRA ALEXANDRA [place] 1 [facility] [place]ATIO [place] [address] ALEXANDRA ALEXANDRA INFUSION 1 [facility] THERAPY INC INC PROPHYLAX IS/DX EA HOUR IMHISTOCH 79252 PATHOLOGY PATHOLOGY EM/CYTCHM 1 & & 1ST CYTOLOGY CYTOLOGY ANTIBODY [place] [address] PATHOLOGY PATHOLOGY SURG 1 & & PATHOLOGY CYTOLOGY CYTOLOGY LAB LAB GROSS&JOSE CRUZ ROSCOPIC EXAM COLLECTIO 44035 COMBINED COMBINED N VENOUS 1 PHYSICIAN PHYSICIAN [place] [address] [place] FIL[place] ABDOMEN & 1 MEDICAL PIERRE PELVIS IMAGING W/CONTRAS ASS T MATERIAL CT THORAX 00822 [place] FILIP[place] 1 MEDICAL PIERRE W/CONTRAS IMAGING T ASS MATERIAL 3D 32743 ALEXANDRA MORRIS RENDERING 1 [facility] INC INC W/INTERP& POSTPROC DIFF WORK STATION COMPREHEN 06713 COMBINED COMBINED SIVE 1 PHYSICIAN PHYSICIAN METABOLIC S LA S LA PANEL COLLECTIO 22183 COMBINED COMBINED N VENOUS 1 PHYSICIAN PHYSICIAN BLOOD S LA S LA VENIPUNCT URE BLOOD 82294 COMBINED COMBINED COUNT 1 PHYSICIAN PHYSICIAN COMPLETE S LA S LA AUTO&AUTO DIFRNTL WBC RADEX 75354 ALEXANDRA MORRIS ESOPHAGUS 0 [facility] INC INC COLONOSCO 08891 [place] MAH[place] PY FLX DX 0 MEDICAL W/COLLJ [place] [address] ALEXANDRA SANTAON INFUSION 0 [facility] THERAPY/P INC INC ROPHYLAXI S /DX 1ST TO 1 [place] [address] ALEXANDRA SANTAON INFUSION 0 [facility] THERAPY INC INC PROPHYLAX IS/DX EA HOUR OPHTHALMO 06662 ZAYNAB WORTHY SCPY 0 JAM JAM EXTENDED RETINAL DRAWING I&R 1ST CT PELVIS 94784 [place] FILIP[place] 0 MEDICAL PIERRE W/[place] [address] [place] ABDOMEN 0 MEDICAL PIERRE W/CONTRAS IMAGING T ASS MATERIAL 3D 63308 ALEXANDRA SANTAON RENDERING 0 [facility] INC INC W/INTERP& POSTPROC DIFF WORK STATION CT THORAX 04870 [place] FILIP[place] 0 MEDICAL PIERRE W/CONTRAS IMAGING T ASS MATERIAL COLLECTIO 13360 COMBINED COMBINED N VENOUS 0 PHYSICIAN PHYSICIAN BLOOD S LA S LA VENIPUNCT URE TRAVEL [address] MED 0 PHYSICIAN PHYSICIAN NEC LAB S LA S LA SPEC; PRORATD TRIP CHRG BLOOD 35162 COMBINED COMBINED COUNT 0 PHYSICIAN PHYSICIAN COMPLETE S LA S LA AUTO&AUTO DIFRNTL WBC COMPREHEN 32291 COMBINED COMBINED SIVE 0 PHYSICIAN PHYSICIAN METABOLIC S LA S LA PANEL CATHETER C1726 ALEXANDRA MORRIS [place] 0 [facility] [place]ATIO [place] [address] ALEXANDRA MORRIS INFUSION 0 [facility] THERAPY/P INC INC ROPHYLAXI S /DX 1ST TO 1 HR EGD 77919 [place] MAH[place] TRANSORAL 0 MEDICAL BIOPSY SERV SINGLE/MU FOUNDATIO LTIPLE SPCL STN 58669 PATHOLOGY PATHOLOGY 2 I&R 0 & & EXCPT CYTOLOGY CYTOLOGY MICROORG/ LAB LAB ENZYME/[place] [address] PATHOLOGY PATHOLOGY SURG 0 & & PATHOLOGY CYTOLOGY CYTOLOGY LAB LAB GROSS&[place] [address] ALEXANDRA MORRIS INFUSION 0 [facility] THERAPY INC INC PROPHYLAX IS/DX EA HOUR CHANGE 99023 ALEXANDRA MORRIS GASTROSTO 0 [facility] MY TUBE INC INC PERCUTANE OUS W/O GDNCE COLLECTIO 92099 COMBINED COMBINED N VENOUS 0 PHYSICIAN PHYSICIAN BLOOD S LAB S LAB VENIPUNCT URE BLOOD 39205 COMBINED COMBINED COUNT 0 PHYSICIAN PHYSICIAN COMPLETE S LAB S LAB AUTO&AUTO DIFRNTL WBC COMPREHEN 19996 COMBINED COMBINED SIVE 0 PHYSICIAN PHYSICIAN METABOLIC S LAB S LAB PANEL OPHTH 66437 ZAYNAB WORTHY, MEDICAL 0 ALEM FERRARA XM&EVAL COMPRHNSV ESTAB PT 1/> [place] [address] ALEXANDRA MORRIS ABDOMEN 0 [facility] W/CONTRAS INC INC T MATERIAL CT THORAX 56730 ALEXANDRA MORRIS 0 [facility] W/CONTRAS INC INC T MATERIAL 3D 40763 ALEXANDRA MORRIS RENDERING 0 [facility] INC INC W/INTERP& POSTPROC DIFF WORK STATION COMPREHEN 52025 COMBINED COMBINED SIVE 0 PHYSICIAN PHYSICIAN METABOLIC S LAB S LAB PANEL TRAVEL [address] MED 0 PHYSICIAN PHYSICIAN NEC LAB S LAB S LAB SPEC; PRORATD TRIP CHRG BLOOD 20801 COMBINED COMBINED COUNT 0 PHYSICIAN PHYSICIAN COMPLETE S LAB S LAB AUTO&AUTO DIFRNTL WBC COLLECTIO 59211 COMBINED COMBINED N VENOUS 0 PHYSICIAN PHYSICIAN BLOOD S LAB S LAB VENIPUNCT URE SPCL STN 59559 PATHOLOGY PATHOLOGY 2 I&R 0 & & EXCPT CYTOLOGY CYTOLOGY MICROORG/ LAB LAB ENZYME/IM CYT ENDOSCOPY 16579 [place], UPPER 0 [facility] SMALL SERV INTESTINE FOUNDATIO W/[place] [address] ALEXANDRA M[facility] INFUSION 0 [facility] THERAPY/P INC INC ROPHYLAXI S /DX 1ST TO 1 [place] [address] PATHOLOGY PATHOLOGY SURG 0 & & PATHOLOGY CYTOLOGY CYTOLOGY LAB LAB GROSS&JOSE CRUZ ROSCOPIC EXAM IMHISTOCH 09291 PATHOLOGY PATHOLOGY EM/CYTCHM 0 & & 1ST CYTOLOGY CYTOLOGY [place] [address] A[facility]ANDR[facility] M[facility] INFUSION 0 [facility] THERAPY INC INC PROPHYLAX IS/DX EA HOUR 3D 79785 ALEXANDRA M[facility]RIS RENDERING 9 [facility] INC INC W/INTERP& POSTPROC DIFF WORK STATION CT THORAX 69097 ALEXANDRA MORRIS W/O 9 [facility] [place] [address] ALEXANDRA M[facility] ABDOMEN 9 [facility] W/O INC INC CONTRAST MATERIAL COLLECTIO 48910 COMBINED COMBINED N VENOUS 9 PHYSICIAN PHYSICIAN BLOOD S LAB S LAB VENIPUNCT URE COMPREHEN 71610 COMBINED COMBINED SIVE 9 PHYSICIAN PHYSICIAN METABOLIC S LAB S LAB PANEL RADIOLOGI 03811 A[facility]ANDR[facility]IS C 9 [facility] EXAMINATI INC INC ON KNEE 3 VIEWS GONADOTRO 11258 LAB TULIO LAB T[facility]IO PIN 9 AMERIC AMERIC FOLLICLE HOLDING HOLDING STIMULATI NG HORMONE COMPREHEN 43417 COMBINED COMBINED SIVE 9 PHYSICIAN PHYSICIAN METABOLIC S LAB S LAB PANEL COLLECTIO 23947 COMBINED COMBINED N VENOUS 9 PHYSICIAN PHYSICIAN BLOOD S LAB S LAB VENIPUNCT URE GONADOTRO 02297 LAB T[facility] LAB TULIO PIN 9 AMERIC AMERIC LUTEINIZI HOLDING HOLDING NG HORMONE SCR G0145 PATHOLOGY PATHOLOGY CYTOPATH 9 & & CERV/VAG CYTOLOGY CYTOLOGY SCR LAB LAB AUTO&MNL RSCR PHYS URNLS DIP 99960 [place] MCKEMIE 9 [place] JR, STICK/TAB INTERNAL ERLIN F LET RGNT MED NON-AUTO W/O MICRSCP SCR G0124 PATHOLOGY PATHOLOGY CYTOPATH 9 & & CERV/VAG CYTOLOGY CYTOLOGY THIN [place] [address] ALEXANDRA MORRIS INFUSION 9 [facility] THERAPY INC [place] [address] PATHOLOGY PATHOLOGY SURG 9 & & PATHOLOGY CYTOLOGY CYTOLOGY LAB LAB GROSS&[place] [address] ALEXANDRA MORRIS INFUSION 9 [facility] THERAPY/P INC INC ROPHYLAXI S /DX 1ST TO 1 HR EGD [address] [place], BALLOON 9 [facility] DILATION SERV ESOPHAGUS FOUNDATIO <30 MM DIAM EGD 54773 [place], TRANSORAL 9 [facility] BIOPSY SERV SINGLE/MU FOUNDATIO LTIPLE SPCL STN 91277 PATHOLOGY PATHOLOGY 2 I&R 9 & & EXCPT CYTOLOGY CYTOLOGY MICROORG/ LAB LAB ENZYME/IM CYT CATHETER C1726 ALEXANDRA MORRIS BALLOON 9 [facility] DILATATIO INC INC N NON-VASCU LAR CHANGE 61372 [place], GASTROSTO 9 [facility] MY TUBE SERV PERCUTANE FOUNDATIO OUS W/[place] [address] ALEXANDRA M[facility] ABDOMEN 9 [facility] W/CONTRAS INC INC T MATERIAL CT PELVIS 76006 CAROLINA ESTEVEZ, 9 MEDICAL RUTHY P W/CONTRAS [place] [address] ALEXANDRA MORRIS GUIDANCE 9 [facility] NEEDLE INC INC PLACEMENT IMG S&I CT THORAX 26136 ALEXANDR[facility] 9 [facility] W/CONTRAS INC INC T MATERIAL 3D 61875 ALEXANDRA SANTAON RENDERING 9 [facility] INC INC W/INTERP& POSTPROC DIFF WORK STATION IMMUNOASS 68252 LAB TULIO LAB TULIO AY TUMOR 9 [employer]IC AMERIC ANTIGEN HOLDING HOLDING QUANTITAT [place] CA 19-9 COMPREHEN 79451 COMBINED COMBINED SIVE 9 PHYSICIAN PHYSICIAN METABOLIC S LAB S LAB PANEL COLLECTIO 74021 COMBINED COMBINED N VENOUS 9 PHYSICIAN PHYSICIAN BLOOD S LAB S LAB VENIPUNCT URE BLOOD 13062 COMBINED COMBINED COUNT 9 PHYSICIAN PHYSICIAN COMPLETE S LAB S LAB AUTO&AUTO DIFRNTL WBC THYROID 53193 ALEXANDRA M[facility]RIS HORM 9 [facility] UPTK/THYR INC INC OID HORMONE BINDING RATIO CT THORAX 32752 ALEXANDR[facility]RIS 9 [facility] W/CONTRAS INC INC T MATERIAL CT PELVIS 60244 ALEXANDRAREHANA M[facility]RIS 9 [facility] W/CONTRAS INC INC T MATERIAL CREATININ 39337 ALEXANDRA MORRIS E BLOOD 9 [place] [address] ALEXANDRA MORRIS ABDOMEN 9 [facility] W/[place] [address] ALEXANDRA MORRIS THYROID 9 [facility] STIMULATI [place] [address] ALEXANDRA MORRIS UREA 9 [facility] NITROGEN [place] [address] ALEXANDRA MORRIS THYROXINE 9 [facility] TOTAL INC INC 3D 19819 ALEXANDRA MORRIS RENDERING 9 [facility] INC INC W/INTERP& POSTPROC DIFF WORK STATION OPHTHALMO 61738 ZAYNAB WORTHY, DEMARIOY 9 ALEM FERRARA EXTENDED RETINAL DRAWING I&R 1ST CHANGE 47303 ALEXANDRA M[facility]RIS GASTROSTO 9 [facility] MY TUBE INC INC PERCUTANE OUS W/O GDNCE CUL BACT 26432 ALEXANDRA M[facility]RIS XCPT 9 [facility] URINE INC INC BLOOD/STO OL AEROBIC [place] [address] ALEXANDRA [facility]ORRIS [facility] 8 [facility] PROPH/DX INC INC 1ST >1 [place] [address] PATHOLOGY PATHOLOGY SURG 8 & & PATHOLOGY CYTOLOGY CYTOLOGY LAB LAB GROSS&JOSE CRUZ ROSCOPIC EXAM EGD 75850 TAM GOMES, TRANSORAL 8 MEDICAL PATRICK BIOPSY SERV SINGLE/MU FOUNDATIO LTIPLE CATHETER C1726 ALEXANDRA SANTAON BALLOON 8 [facility] DILATATIO INC INC N NON-VASCU LAR SPCL STN 63613 PATHOLOGY PATHOLOGY 2 I&R 8 & & EXCPT CYTOLOGY CYTOLOGY MICROORG/ LAB LAB ENZYME/IM CYT EGD 80908 TAM GOMES, BALLOON 8 MEDICAL PATRICK DILATION SERV ESOPHAGUS FOUNDATIO <30 MM DIAM COMPREHEN 21082 ALEXANDRA MORRIS SIVE 8 [facility] METABOLIC INC INC PANEL BLOOD 04406 ALEXANDRA MORRIS COUNT 8 [facility] COMPLETE INC INC AUTO&AUTO DIFRNTL WBC CT THORAX 31289 [place] FILIPPO, 8 MEDICAL GUANACO W/[place] [address] ALEXANDRA MORRIS ABDOMEN 8 [facility] W/CONTRAS INC INC T MATERIAL CT PELVIS 25897 [place] FILIPPO, 8 MEDICAL GUANACO W/CONTRAS IMAGING T ASSOCIATE MATERIAL S 3D 63375 ALEXANDRA MORRIS RENDERING 8 [facility] INC INC W/INTERP& POSTPROC DIFF WORK STATION COLLECTIO 82380 COMBINED COMBINED N VENOUS 8 PHYSICIAN PHYSICIAN BLOOD S LAB S LAB VENIPUNCT URE BLOOD 07811 COMBINED COMBINED COUNT 8 PHYSICIAN PHYSICIAN COMPLETE S LAB S LAB AUTO&AUTO DIFRNTL WBC COMPREHEN 79004 COMBINED COMBINED SIVE 8 PHYSICIAN PHYSICIAN METABOLIC S LAB S LAB PANEL MRI BRAIN 62219 FILIPPO BARKLEY, BRAIN 8 GUANACO GUANACO STEM W/O W/CONTRAS T MATERIAL CT THORAX 48249 ALEXANDRA M[facility]RIS 8 [facility] W/[place] [address] [place] HERB, ABDOMEN 8 MEDICAL RUTHY P W/CONTRAS IMAGING T ASSOCIATE MATERIAL S CREATININ 03377 ALEXANDRA De Luna BLOOD 8 [facility] [place] [place] [address] ALEXANDRA MORRIS UREA 8 [facility] NITROGEN INC INC QUANTITAT KONSTANTIN 3D 19628 ALEXANDRAREHANA MORRIS RENDERING 8 [facility] INC INC W/INTERP& POSTPROC DIFF [place] NFUS 37349 ALEXANDRA MORRIS THER 8 [facility] PROPH/DX [place] NFS [address]14 ALEXANDRA MORRIS THER 8 [facility] PROPH/DX INC INC 1ST >1 HR ENTRAL F B4150 HOME SKILLED NURSING CARE NUTRITION 8 PARTNERS PARTNERS ALLY CMPL W/INTACT NUTRIENTS ENTERAL B4034 HOME SKILLED NURSING CARE FEEDING 8 PARTNERS PARTNERS SUPPLY KIT; SYRINGE FED PER DAY ENTERAL B4034 HOME SKILLED NURSING CARE FEEDING 8 PARTNERS PARTNERS SUPPLY KIT; SYRINGE FED PER DAY CT THORAX 07390 ALEXANDRA MORRIS W/O 8 [facility] [place] [address] ALEXANDRA MORRIS ABDOMEN 8 [facility] W/O INC INC CONTRAST MATERIAL 3D 34339 ALEXANDRA MORRIS RENDERING 8 [facility] INC INC W/INTERP& POSTPROC DIFF WORK STATION CT PELVIS 06482 ALEXANDRA ALEXANDRA W/O 8 [facility] CONTRAST INC INC MATERIAL ENTERAL B4034 HOME SKILLED NURSING CARE FEEDING 8 PARTNERS PARTNERS SUPPLY KIT; SYRINGE FED PER DAY ENTRAL F B4150 HOME SKILLED NURSING CARE NUTRITION 8 PARTNERS PARTNERS ALLY CMPL W/INTACT NUTRIENTS ENTERAL B4034 HOME SKILLED NURSING CARE FEEDING 8 PARTNERS PARTNERS SUPPLY KIT; SYRINGE FED PER DAY HOSPITAL 06570 [place] QUINCY, [facility] MED T 30 MIN/< SBSQ [address], CARE/DAY INTERNAL ERLIN F 25 MED MINUTES SBSQ [address], CARE/DAY INTERNAL ERLIN F 25 MED MINUTES RADEX ABD 89524 CAROLINA ESTEVEZ, COMPL 8 MEDICAL RUTHY P AQT ABD IMAGING W/S/E/D ASSOCIATE VIEWS 1 S VIEW CH INITIAL 81960 [facility] 8 [facility] JR, CARE/DAY INTERNAL ERLIN F 50 MED MINUTES RADIOLOGI 16860 Daisy JOHN EXAM 8 MEDICAL GUANACO CHEST 2 IMAGING VIEWS ASSOCIATE FRONTAL&L S ATERAL COLLECTIO 62910 ALEXANDRA MORRIS N VENOUS 8 [facility] BLOOD INC INC VENIPUNCT URE BLOOD 01082 ALEXANDRA MORRIS COUNT 8 [facility] COMPLETE INC INC AUTO&AUTO DIFRNTL WBC THER 37787 ALEXANDRA MORRIS PROPH/DX 8 [facility] NJX EA INC INC SEQL IV PUSH SBST/DRUG BASIC 41702 ALEXANDRA MORRIS METABOLIC 8 [facility] [place]EL [place] 74424 ALEXANDRA MORRIS THER 8 [facility] PROPH/DX INC INC 1ST >1 [place]FS 58156 ALEXANDRA MORRIS THER 8 [facility] PROPH/DX INC INC 1ST >1 HR INJECTION J9060 ALEXANDRA MORRIS 8 [facility] CISPLATIN INC INC POWDER OR SOLUTION 10 MG CHEMOTX 44566 ALEXANDRA MORRIS ADMN IV 8 [facility] NFS TQ UP INC INC 1 HR 1/ SBST/DRUG IV NFUS 90699 ALEXANDRA MORRIS THER 8 [facility] PROPH/DX INC INC EA HR INJECTION J9178 ALEXANDRA MORRIS 8 [facility] EPIRUBICI INC INC N HCL 2 MG CHEMOTX 43727 ALEXANDRA MORRIS ADMN IV 8 [facility] PUSH TQ INC INC 1/ SBST/DRUG AMB INFUS E0781 HOME SKILLED NURSING CARE PUMP 8 PARTNERS PARTNERS 1/MX CHANNL W/ADMN EQP WORN BY PT SUPPLIES A4221 HOME SKILLED NURSING CARE FOR MAINT 8 PARTNERS PARTNERS NON-INS RX INFUS CATH PER WK INFUS SPL A4222 HOME SKILLED NURSING CARE EXT RX 8 PARTNERS PARTNERS INFUS PUMP CASSETTE/ [place] NFS 32681 ALEXANDRA MORRIS THER 8 [facility] PROPH/DX INC INC 1ST >1 HR CHEMOTX 58385 ALEXANDRA MORRIS ADMN IV 8 [facility] NFS TQ UP INC INC 1 HR 1/ SBST/DRUG INJECTION J9060 ALEXANDRA MORRIS 8 [facility] CISPLATIN INC INC POWDER OR SOLUTION 10 [place] NFUS 18510 ALEXANDRA MORRIS THER 8 [facility] PROPH/DX INC INC EA HR INJECTION J9178 ALEXANDRA MORRIS 8 [facility] EPIRUBICI INC INC N HCL 2 MG CHEMOTX 29463 ALEXANDRA MORRIS ADMN IV 8 [facility] NFS TQ EA INC INC SEQL NFS TO 1 HR AMB INFUS E0781 HOME SKILLED NURSING CARE PUMP 8 PARTNERS PARTNERS 1/MX CHANNL W/ADMN EQP WORN BY PT INFUS SPL A4222 HOME SKILLED NURSING CARE EXT RX 8 PARTNERS PARTNERS INFUS PUMP CASSETTE/ BAG SUPPLIES A4221 HOME SKILLED NURSING CARE FOR MAINT 8 PARTNERS PARTNERS NON-INS RX INFUS CATH PER WK INJECTION J9190 HOME SKILLED NURSING CARE 8 PARTNERS PARTNERS FLUOROURA CIL 500 MG CATHETER C1751 [facility] 8 Y Y [facility] CNTRLLY/M IDLN ENTERAL B4034 HOME SKILLED NURSING CARE FEEDING 8 PARTNERS PARTNERS SUPPLY KIT; SYRINGE FED PER DAY RADIOLOGI 84176 [facility] C 8 Y Y [facility] CHEST SINGLE VIEW FRONTAL RPLCMT 38515 [facility] COMPL 8 Y Y PRPH CVC [facility] W/O SUBQ PORT/BOILERMAKER NONINVASI 82208 [facility] VE 8 Y Y EAR/PULSE [facility] OXIMETRY SINGLE DETER INJECTION J2997 [facility] 8 Y Y ALTEPLASE [facility] NT 1 MG INJECTION J9060 ALEXANDRA MORRIS 8 [facility] CISPLATIN INC INC POWDER OR SOLUTION 10 MG CHEMOTX 55077 ALEXANDRA MORRIS ADMN IV 8 [facility] NFS TQ UP INC INC 1 HR 1/1ST SBST/DRUG INJECTION J9178 ALEXANDRA MORRIS 8 [facility] EPIRUBICI INC INC N HCL 2 MG CHEMOTHER 07810 ALEXANDRA ALEXANDRA APMolly ADMN 8 [facility] IV INC INC INFUSION TQ EA HR CHEMOTX 57499 ALEXANDRA MORRIS ADMN IV 8 [facility] PUSH TQ INC INC EA SBST/DRUG ENTRAL F B4150 HOME SKILLED NURSING CARE NUTRITION 8 PARTNERS PARTNERS ALLY CMPL W/INTACT NUTRIENTS CHEMOTX 46092 ALEXANDRA MORRIS ADMN IV 8 [facility] PUSH TQ INC INC EA SBST/DRUG CHEMOTHER 94995 ALEXANDRA MORRIS APMolly ADMN 8 [facility] IV INC INC INFUSION TQ EA HR INJECTION J9178 ALEXANDRA MORRIS 8 [facility] EPIRUBICI INC INC N HCL 2 MG CHEMOTX 97573 ALEXANDRA MORRIS ADMN IV 8 [facility] NFS TQ UP INC INC 1 HR SBST/DRUG INJECTION J9060 ALEXANDRAREHANA MORRIS 8 [facility] CISPLATIN INC INC POWDER OR SOLUTION 10 MG INJECTION J9190 HOME SKILLED NURSING CARE 8 PARTNERS PARTNERS FLUOROURA CIL 500 MG AMB INFUS E0781 HOME SKILLED NURSING CARE PUMP 8 PARTNERS PARTNERS 1/MX CHANNL W/ADMN EQP WORN BY PT INFUS SPL A4222 HOME SKILLED NURSING CARE EXT RX 8 PARTNERS PARTNERS INFUS PUMP CASSETTE/ BAG SUPPLIES A4221 HOME SKILLED NURSING CARE FOR MAINT 8 PARTNERS PARTNERS NON-INS RX INFUS CATH PER WK GRANISETR Q0166 ALEXANDRA MORRIS ON HCL 1 8 [facility] MG ORL INC INC NOT >48 HR DOSE REGIMEN ENTERAL B4034 HOME SKILLED NURSING CARE FEEDING 8 PARTNERS PARTNERS SUPPLY KIT; SYRINGE FED PER DAY ECHO 16158 ALEXANDRA MORRIS TRANSTHOR 8 [facility] AC R-T 2D INC INC W/WO M-MODE REC COMP DOP 90542 ALEXANDRA MORRIS ECHOCARD 8 [facility] COLOR INC INC FLOW VELOCITY MAPPING DOPPLER 70735 ALEXANDRA MORRIS ECHOCARD 8 [facility] PULSE INC INC WAVE W/[place] NFS 09665 ALEXANDRA MORRIS THER 8 [facility] PROPH/DX INC INC 1ST >1 [place] [address] PATHOLOGY PATHOLOGY SURG 8 & & PATHOLOGY CYTOLOGY CYTOLOGY LAB LAB GROSS&JOSE CRUZ ROSCOPIC EXAM EGD 28172 [place] TRANSORAL 8 MEDICAL MEDICAL BIOPSY SERV SERV SINGLE/MU FOUNDATIO FOUNDATIO LTIPLE SPECIAL 58344 PATHOLOGY PATHOLOGY STAIN 8 & & GROUP 1 CYTOLOGY CYTOLOGY MICROORGA LAB LAB NISMS I&R SPCL STN 31147 PATHOLOGY PATHOLOGY 2 I&R 8 & & EXCPT CYTOLOGY CYTOLOGY MICROORG/ LAB LAB ENZYME/IM CYT ENTERAL B4034 HOME SKILLED NURSING CARE FEEDING 8 [employer] SUPPLY KIT; SYRINGE FED PER DAY ENTRAL F B4150 HOME SKILLED NURSING CARE NUTRITION 8 [employer] ALLY CMPL W/INTACT NUTRIENTS Encounters Encounter Start End Date Code Location Performer Type Date OFFICE 68666 DERMATOLO MUSIC OUTPATIEN 7 7 GY T VISIT CONSULTAN 15 TS PSC MINUTES OFFICE 47431 [place] ZAYNAB OUTPATIEN 7 7 [facility] 25 P.S.C. MINUTES OFFICE 69729 FAUSTINO HARMON OUTPATIEN 6 6 ROCAEL ROCAEL T VISIT 15 MINUTES OFFICE 93088 DERMATOLO MUSIC OUTPATIEN 6 6 GY T VISIT CONSULTAN 15 TS PSC MINUTES OFFICE 88666 FAUSTINO HARMON OUTPATIEN 6 6 ROCAEL ROCAEL T VISIT 15 MINUTES OFFICE 34405 [place] ZAYNAB OUTPATIEN 6 6 [facility], 25 P.S.C. MINUTES OFFICE 48140 FAUSTINO HARMON OUTPATIEN 6 6 ROCAEL ROCAEL T NEW 30 MINUTES [facility] - 6 6 [facility] OUTPATIEN INC T OFFICE 60806 [place] WORTHY OUTPATIEN 6 6 [facility] VISIT [facility], 25 P.S.C[facility] ALEXANDRA - 6 6 [facility] OUTPATIEN INC T [facility] - 6 6 [facility] OUTPATIEN INC T OFFICE 28231 DERMATOLO MUSIC ELIZABETH OUTPATIEN 6 6 GY T VISIT CONSULTAN 15 TS PSC [facility] ALEX[facility]DRA - 6 6 [facility] OUTPATIEN INC T OFFICE 13475 FALLOLYA MAURICIO OUTPATIEN 6 6 RONI CHRISTIAN T NEW 30 MINUTES [facility]OSPITAL [facility] - 5 5 [facility] OUTPATIEN INC T OFFICE 61149 DERMATOLO MUSIC ELIZABETH OUTPATIEN 5 5 GY T NEW 10 CONSULTAN MINUTES TS PSC OFFICE 45945 [facility] BLANCA TOD OUTPATIEN 5 5 PHYSICIAN T VISIT S GROUP 10 MINUTES OFFICE 40275 [place] BESSON OUTPATIEN 5 5 [facility] PATRICA T VISIT INTERNAL 15 MED MINUTES [facility] - 5 5 [facility] OUTPATIEN INC [facility] - 5 5 [facility] OUTPATIEN INC T OFFICE 71145 [facility] BLANCA TOD OUTPATIEN 5 5 PHYSICIAN T NEW 30 S GROUP MINUTES OFFICE 03133 [place] BESSON OUTPATIEN 5 5 [facility] PATRICA T VISIT INTERNAL 15 MED MINUTES [facility] - 5 5 [facility] OUTPATIEN INC T OFFICE 27108 [place] BESSON OUTPATIEN 5 5 [facility] PATRICA T VISIT INTERNAL 25 MED MINUTES [facility] - 5 5 [facility] OUTPATIEN INC [facility] - 5 5 [facility] OUTPATIEN INC T OFFICE 56120 [facility] USERY AND OUTPATIEN 5 5 [facility] T VISIT INTERNAL 25 MED MINUTES [facility] - 5 5 [facility] OUTPATIEN INC T OFFICE 00539 ZAYNAB WORTHY OUTPATIEN 4 4 IAN SOSA T VISIT 25 MINUTES [facility] - 4 4 [facility] OUTPATIEN INC [facility] - 4 4 [facility] OUTPATIEN INC T OFFICE 45859 ZAYNAB WORTHY OUTPATIEN 4 4 IAN SOSA T VISIT 25 MINUTES [facility] - 4 4 [facility] OUTPATIEN INC [facility] - 4 4 [facility]EN [facility] ALEXANDRA - OTHER 4 4 [facility] Emergency HENRY Richmond MD (ER) 3 08:46 3 09:34 [facility] EMERGENCY 24840 LEATHA ALBRIGHT 3 3 EMERGENCY DEPARTMEN SERVICES T VISIT HIGH/URGE NT SEVERITY [facility]OSPITAL [facility] - 3 3 [facility] OUTPATIEN [facility] EMERGENCY 58437 ALEXANDRA 3 3 [facility] DEPARTMEN INC T VISIT LOW/MODER SEVERITY OFFICE 54081 WORTHY ZAYNAB OUTPATIEN 3 3 IAN SOSA T VISIT 15 MINUTES OFFICE 25024 ALEXANDRA MILTONIMONE OUTPATIEN 3 3 [facility] 10 P MINUTES [facility] - 3 3 [facility] OUTPATIEN INC OFFICE 13855 [place] OUTPATIEN 3 3 ALAMOGORDO T VISIT INTERNAL 15 MED MINUTES OFFICE 97708 [facility] MCKEMIE OUTPATIEN 3 3 [facility] T VISIT INTERNAL 15 MED MINUTES OFFICE 19252 [place] OUTPATIEN 3 3 ALAMOGORDO T VISIT INTERNAL 15 MED MINUTES OFFICE 54195 ZAYNAB WORTHY OUTPATIEN 3 3 IAN SOSA T VISIT 25 MINUTES [facility] - 3 3 [facility] OUTPATIEN INC T [facility] - 3 3 [facility] OUTPATIEN INC T OFFICE 62359 [place] MCKEMIE OUTPATIEN 3 3 [facility] JOSEPH T VISIT INTERNAL 15 MED MINUTES OFFICE 07611 [place] MCKEMIE OUTPATIEN 3 3 [facility] JOSEPH T VISIT INTERNAL 15 MED MINUTES [facility]OSP[facility] - 2 2 [facility] OUTPATIEN INC T OFFICE 19897 [place] MCKEMIE OUTPATIEN 2 2 [facility] JOSEPH T VISIT INTERNAL 15 MED MINUTES OFFICE 80320 [place] MCKEMIE OUTPATIEN 2 2 [facility] JOSEPH T VISIT INTERNAL 15 MED MINUTES [facility] - 2 2 [facility] OUTPATIEN INC T [facility] - 2 2 [facility] OUTPATIEN INC T [facility] - 2 2 [facility] OUTPATIEN INC T OFFICE 39608 [place] MCKEMIE OUTPATIEN 2 2 [facility] JOSEPH T VISIT INTERNAL 15 MED MINUTES OFFICE 93796 [place] MCKEMIE OUTPATIEN 2 2 [facility] JOSEPH T VISIT INTERNAL 15 MED MINUTES [facility] - 2 2 [facility] OUTPATIEN INC T [facility] - 2 2 [facility] OUTPATIEN INC T OFFICE 75024 [place] MCKEMIE OUTPATIEN 2 2 [facility] JOSEPH T VISIT INTERNAL 10 MED MINUTES [facility] - 2 2 [facility] OUTPATIEN INC T OFFICE 14833 [place] MCKEMIE OUTPATIEN 2 2 [facility] JOSEPH T VISIT INTERNAL 15 MED MINUTES OFFICE 00651 [place] MCKEMIE OUTPATIEN 2 2 [facility] JOSEPH T VISIT INTERNAL 15 MED MINUTES OFFICE 29440 ZAYNAB WORTHY OUTPATIEN 2 2 IAN SOSA T VISIT 25 MINUTES OFFICE 96134 [place] MCKEMIE OUTPATIEN 2 2 [facility] JOSEPH T VISIT INTERNAL 15 MED MINUTES [facility] - 2 2 [facility] OUTPATIEN INC T OFFICE 58309 A[facility]DR[facility] DONAHUE QAI OUTPATIEN 2 2 [facility] T VISIT HOSP[facility] 25 P MINUTES HOSPITAL [facility] - 2 2 [facility]PAT[facility]EN [facility] - 2 2 [facility] OUTPATIEN INC [facility] - 2 2 [facility] OUTPATIEN INC [facility] - 1 1 [facility] OUTPATIEN INC [facility] - 1 1 [facility] OUTPATIEN INC [facility] - 1 1 [facility] OUTPATIEN INC T OFFICE 67505 ZAYNAB WORTHY OUTPATIEN 1 1 IAN SOSA T VISIT 25 MINUTES [facility]OSPITAL [facility] - 1 1 [facility] OUTPATIEN INC T OFFICE 93329 ALEX[facility]DRA DONAHUE QAI OUTPATIEN 1 1 [facility] T VISIT HOSPITAL 25 P MINUTES [facility] - 1 1 [facility] OUTPATIEN INC [facility] - 1 1 [facility] OUTPATIEN INC [facility] - 1 1 [facility] OUTPATIEN INC T OFFICE 42343 ALEXANDRA DONAHUE QAI OUTPATIEN 1 1 [facility] 25 P MINUTES [facility] - 1 1 [facility] OUTPATIEN INC T OFFICE 95975 [place] MCKEMIE OUTPATIEN 1 1 [facility] JOSEPH T VISIT INTERNAL 15 MED MINUTES OFFICE 78503 [place] MCKEMIE OUTPATIEN 1 1 [facility] JOSEPH T VISIT INTERNAL 15 MED MINUTES OFFICE 29732 [place] MCKEMIE OUTPATIEN 1 1 [facility] JOSEPH T VISIT INTERNAL 15 MED MINUTES [facility] - 0 0 [facility] OUTPATIEN INC T OFFICE 57704 RESTORATIONISTShivani MORRISSEY OUTPATIEN 0 0 CARDIOTHO T VISIT RACIC 10 SURGI MINUTES [facility]OSP[facility] - 0 0 [facility] OUTPATIEN INC T OFFICE 03641 ZAYNAB WORTHY OUTPATIEN 0 0 IAN SOSA T VISIT 40 MINUTES [facility] - 0 0 [facility] OUTPATIEN INC [facility] - 0 0 [facility] OUTPATIEN INC [facility] - 0 0 [facility] OUTPATIEN INC T OFFICE 05265 MARTHA SOTO OUTPATIEN 0 0 CARDIOTHO YOUNG Pina T VISIT RACIC 15 SURGICAL MINUTES GROUP OFFICE 92532 A[facility]DRA DELEON OUTPATIEN 0 0 CECELIA Stone VISIT HOSPITAL 15 PROF SERV MINUTES [facility] - 0 0 [facility]PATIEN INC [facility] - 0 0 [facility] OUTPATIEN INC T OFFICE 95177 [place] MCKEMIE OUTPATIEN 9 9 [facility] GONZALEZ T VISIT INTERNAL ERLIN F 15 MED MINUTES [facility] - 9 9 [facility] OUTPATIEN INC [facility] - 9 9 [facility] OUTPATIEN INC T OFFICE 42838 [place] MCKEMIE OUTPATIEN 9 9 Shivani KRAMER JR VISIT INTERNAL ERLIN F 15 MED MINUTES OFFICE 59684 [place], OUTPATIEN 9 9 BEN Parrish NEW 10 CLINIC H MINUTES [facility] OFF[facility] 66323 [place] MCKEMIE OUTPATIEN 9 9 Shivani KRAMER JR VISIT INTERNAL ERLIN F 15 MED MINUTES OFFICE 78933 [place] MCKEMIE OUTPATIEN 9 9 Shivani KRAMER JR VISIT INTERNAL ERLIN F 15 MED MINUTES [facility] - 9 9 [facility] OUTPATIEN INC T OFFICE 98927 [place] MCKEMIE OUTPATIEN 9 9 Shivani KRAMER JR VISIT INTERNAL ERLIN F 15 MED MINUTES [facility] - 9 9 [facility] OUTPATIEN INC T OFFICE 59320 [place] MCKEMIE OUTPATIEN 9 9 Shivani KRAMER JR VISIT INTERNAL ERLIN F 15 MED MINUTES OFFICE 54260 [place] MCKEMIE OUTPATIEN 9 9 Shivani KRAMER JR VISIT INTERNAL ERLIN F 15 MED MINUTES OFFICE 44047 [place] MCKEMIE OUTPATIEN 9 9 Shivani KRAMER JR VISIT INTERNAL ERLIN F 15 MED MINUTES OFFICE 60893 [place] MCKEMIE OUTPATIEN 9 9 Shivani KRAMER JR VISIT INTERNAL ERLIN F 15 MED MINUTES [facility] - 9 9 [facility] OUTPATIEN INC T OFFICE 35856 [facility] OUTPATIEN 9 9 [facility] T VISIT INC 25 MINUTES [facility] - 9 9 [facility] OUTPATIEN INC T OFFICE 21850 ZAYNAB WORTHY, OUTPATIEN 9 9 ALEM ALEM Parrish VISIT 40 MINUTES OFFICE 98462 [place] MCKEMIE OUTPATIEN 9 9 Shivani KRAMER JR VISIT INTERNAL ERLIN F 15 MED MINUTES OFFICE 88429 SCHULSTAD SCHULSTAD OUTPATIEN 9 9 , BRENDAN CARDONA T VISIT 15 MINUTES [facility] - 9 9 [facility]EN INC T [facility] - 9 9 [facility] OUTPATIEN INC T OFFICE 77563 [place] MCKEMIE OUTPATIEN 9 9 Shivani KRAMER JR VISIT INTERNAL ERLIN F 15 MED MINUTES OFFICE 15107 CARDIOVAS KELVIN, OUTPATIEN 8 8 FOREIGN & CAROLE T VISIT THORACIC 15 ASSOC PSC MINUTES OFFICE 68610 [place] MCKEMIE OUTPATIEN 8 8 Shivani KRAMER JR VISIT INTERNAL ERLIN F 15 MED MINUTES [facility] - 8 8 [facility] OUTPATIEN INC T OFFICE 80170 [place] MCKEMIE OUTPATIEN 8 8 Shivani KRAMER JR VISIT INTERNAL ERLIN F 15 MED MINUTES OFFICE 70364 [facility] BROWNE OUTPATIASHLEY 8 8 [facility] JAMES Parrish VISIT HOSPITAL 15 PROF SERV MINUTES [facility] - 8 8 [facility] OUTPATIEN INC [facility] - 8 8 [facility] OUTPATIEN INC T OFFICE 09246 [place] MCKEMIE OUTPATIEN 8 8 Shivani KRAMER JR VISIT INTERNAL ERLIN F 15 MED MINUTES OFFICE 71040 CARDIOVAS KELVIN, OUTPATIEN 8 8 FOREIGN & CAROLE T VISIT THORACIC 15 ASSOC PSC MINUTES [facility]OSP[facility] - 8 8 [facility] OUTPATIEN INC T OFFICE 37135 RICK QUINTERO 8 8 [facility] JAMES [facility] VISIT HOSPITAL 15 PROF SERV MINUTES EMERGENCY 10187 A[facility]DRA JEFF, 8 8 [facility] VISIT PROF SERV MODERATE SEVERITY EMERGENCY 52037 [facility] JEFF DEPT 8 8 [facility] HIGH PROF SERV SEVERITY& THREAT FUNCJ EMERGENCY 00353 [facility] 8 8 [facility] T VISIT MODERATE SEVERITY [facility] - 8 8 [facility] - 8 8 [facility] - 8 8 [facility] 46156 [place] [facility] 8 [facility] GONZALEZ, T VISIT INTERNAL ERLIN F 15 MED MINUTES OFFICE 24109 CARDIOVAS CARDIOVAS [facility] 8 8 ULAR & ULAR & T VISIT THORACIC THORACIC 15 ASSOC PSC [facility]OC [facility] UNIVERSIT - 8 8 Y [facility] T EMERGENCY 54044 UNIVERSIT 8 8 Y [facility] T VISIT MODERATE SEVERITY EMERGENCY 17049 UNIVERSIT 8 8 Y [facility] T VISIT LOW/MODER [facility]VERITY HOSPITAL UNIVERSIT - 8 8 Y [facility] T [facility] - 8 8 [facility] OFF[facility] [id number] [place] FELICIAN[facility] OUTPATIEN 8 8 WILLIAMS Rodriguez T VISIT INTERNAL 15 MED MINUTES [facility] - 8 8 [facility] - 8 8 [facility] 8 8 [facility] T EMERGENCY 35798 [facility] 8 8 [facility] T VISIT LOW/MODER SEVERITY OFFICE 73963 [place] [facility] [place] Rodriguez T VISIT INTERNAL 15 MED MINUTES [facility] - 8 8 [facility] T OFFICE 60890 [place] [facility] OUT[facility]IASH[facility] 8 8 Shivani KRAMER JR VISIT INTERNAL ERLIN [place] 15 MED MINUTES
--- OUTSIDE RECORDS SUMMARY | 2017-03-18 17:35 | External Medical Summary Rpt ---
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 Name Role Phone ARNDAVID ROCAEL, ARNOLD Unavailable [...] CECILIA PHI KELVIN, CAROLE, KELVIN, Unavailable Unavailable CAROEL FALLIS RONI, FALLIS Unavailable Unavailable RONI [facility] & Unavailable Unavailable [facility], [facility] & Unavailable Unavailable [facility], [facility] Unavailable Unavailable INC, [facility] NYDIA MATHEW, QUINCY, Unavailable Unavailable NYDIA [facility], Unavailable Unavailable [facility], Unavailable Unavailable [facility] IMAM MOH, IMAM MOH Unavailable Unavailable JAMES BROWNE KEE, Unavailable Unavailable JAMES Willingham [facility], Unavailable Unavailable [facility], [facility] Cheri Richmond MD, Unavailable Unavailable Cheri Richmond MD [facility] Unavailable Unavailable HOLDING, [facility] Unavailable Unavailable HOLDINGS, [facility] Unavailable Unavailable INTERNAL MED, [facility] INTERNAL MED CAL[place]RESE ROCAEL, CALABRESE Unavailable Unavailable ROCAEL [facility] Unavailable Unavailable SERVICES, [facility] ZAYNAB WORTHY Unavailable Unavailable ZAYNAB [...] KARIME JUAREZ, Unavailable Unavailable MILAN JUAREZARET H [facility], Unavailable Unavailable [facility], [facility] Unavailable Unavailable KEYUR WRIGHT Unavailable Unavailable Purpose Continuity of Care Document - 06-08-2007 through 2016 Problems Code Diagnosis DOS Provider Status [id number] ACQUIRED 12-22-2016 [facility] RIGHT LEG & ORTHOTI ABOVE KNEE E559 VITAMIN D 09-15-2016 [facility] UNSPECIFIED LA R7301 IMPAIRED 09-15-2016 [facility] FASTING PHYSICIANS GLUCOSE LA L218 OTHER 09-11-2016 DERMATOLOGY SEBORRHEIC DERMATITIS CONSULTANTS PSC H2513 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 BILATERAL [id number] VITREOUS 08-27-2016 [facility], N RIGHT EYE P.S.[facility]. [id number] VITREOUS 08-27-2016 [facility], N LEFT EYE P.S.C. J069 ACUTE UPPER 06-02-2016 [facility] RESPIRATORY INFECTION UNSPECIFIED E03592 PAIN IN 04-27-2016 [facility] RIGHT LEG HOME MEDICAL EQUIPME J71955 PAIN IN 04-27-2016 [facility] LEFT LEG HOME MEDICAL EQUIPME [id number] COMPLETE 04-27-2016 [facility] TRAUM AMP HOME BETWN KNEE MEDICAL ANKLE LT EQUIPME LEG SEQ Z9710 PRESENCE 04-27-2016 [facility] ARTIFICIAL HOME LIMB MEDICAL COMPLETE EQUIPME PARTIAL UNS M150 PRIMARY 11-15-2015 [facility] GENERALIZED OSTEOARTHRI TIS M1611 UNILATERAL 10-30-2015 [place] PRIMARY [facility]ICAL OSTEOARTHRI IMAGING ASS TIS RIGHT HIP C58780 PAIN IN 10-30-2015 [place] RIGHT HIP MEDICAL IMAGING ASS H3531 NONEXUDATIV 08-22-2015 [facility] [place], AGE-RELATED P.S.C. MACULAR DEGENERATIO N R634 ABNORMAL 07-27-2015 [facility] R700 ELEVATED 07-27-2015 [facility] ER[facility]THROCYTE [facility] INC SEDIMENTATI ON RATE R937 ABN FIND ON 07-27-2015 [place] DX IMAG MEDICAL OTH PART IMAGING ASS MUSCULOSKEL ETAL SYS Z8501 PERSONAL 07-27-2015 [place] HISTORY MEDICAL MALIGNANT IMAGING ASS NEOPLASM OF ESOPHAGUS K449 DIAPHRAGMAT 06-26-2015 [place] IC HERNIA MEDICAL W/O IMAGING ASS OBSTRUCTION OR GANGRENE Z122 ENCOUNTER 06-26-2015 [place] SCREENING MEDICAL MALIG IMAGING ASS NEOPLASM RESPIR ORGANS L0889 OTH SPEC 06-14-2015 DERMATOLOGY LOCAL INFECTIONS CONSULTANTS THE SKIN & PSC SUBQ TISSUE L219 SEBORRHEIC 06-14-2015 DERMATOLOGY DERMATITIS UNSPECIFIED CONSULTANTS PSC 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 UNSPECIFIED [id number] UNS OPEN 06-13-2015 [facility] WOUND UNS [facility] TOES W/O INC DAMAGE NAIL INITIAL B078 OTHER VIRAL 06-12-2015 [facility] RONI WARTS I890 LYMPHEDEMA 06-12-2015 [facility] RONI NOT ELSEWHERE CLASSIFIED M2570 OSTEOPHYTE 06-12-2015 [facility] RONI UNSPECIFIED JOINT J78575 PAIN IN 06-12-2015 [facility] RONI LEFT FOOT K5900 CONSTIPATIO 05-17-2015 [facility] N PHYSICIANS UNSPECIFIED LA G43904 PRIMARY 05-17-2015 [place] OSTEOARTHRI MEDICAL TIS LEFT IMAGING ASS ANKLE AND FOOT F58544 UNSPECIFIED 05-17-2015 [facility] ACQUIRED [facility] DEFORMITY INC OF LEFT LOWER LEG M7732 CALCANEAL 05-17-2015 [facility] SPUR LEFT MEDICAL FOOT IMAGING ASS [id number] COMPLETE 04-30-2015 [facility] TRA[facility] AMP ARTIFICIAL BETWN KNEE LIMB C ANKLE UNS LEG INIT Z09 ENC F/U 03-22-2015 DERMATOLOGY EXAM AFTR CMPL TX OTH CONSULTANTS THAN ELLIE PSC NEOPLSM 40856 UNS 02-14-2015 [facility] GASTRITIS&G PHYSICIANS ASTRODUODIT GROUP IS W/O MENTION HEMORR 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 UNSPECIFIED MED SITE 95187 MIGRAINE 02-08-2015 [facility] UNSP W/O VALLEY INTRACT W/O INTERNAL STATUS MED MIGRAINOSUS 55775 REFLUX 02-08-2015 [facility] ESOPHAGITIS VALLEY INTERNAL MED 36587 UNSPECIFIED 02-08-2015 [facility] ARTHROPATHY INTERNAL MULTIPLE MED SITES 68162 OTHER 02-08-2015 [facility] ABNORMAL VALLEY GLUCOSE INTERNAL MED 2859 UNSPECIFIED 02-02-2015 [facility] ANEMIA PHYSICIANS GROUP 19885 OTHER 02-02-2015 [facility] ESOPHAGITIS MATT & DUBILIER 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 87618 OTHER SPEC 02-02-2015 [facility] GASTRITIS MATT & WITHOUT DUBILIER MENTION HEMORRHAGE 5533 DIAPHRAGMAT 02-02-2015 [facility] CONSTANTINE W/O PHYSICIANS MENTION GROUP OBSTRUCTION /GANGREN V1003 PERSONAL 02-02-2015 [facility] HISTORY PHYSICIANS MALIGNANT GROUP NEOPLASM ESOPHAGUS 2858 OTHER 01-22-2015 [facility] SPECIFIED PHYSICIANS ANEMIAS GROUP 2809 UNSPECIFIED 01-16-2015 [facility] IRON MAYFLOWER DEFICIENCY INTERNAL ANEMIA MED 05183 ESOPHAGEAL 01-16-2015 [facility] REFLUX MAYFLOWER INTERNAL MED 7248 OTHER 01-16-2015 [facility] SYMPTOMS VALLEY REFERABLE INTERNAL TO BACK MED 43044 DIAB W/O 12-29-2014 [facility] COMP TYPE PHYSICIANS [...] ARTIFICIAL BELW KNEE LIMB C W/O COMP 32166 PAIN IN 09-20-2014 [facility] JOINT, [facility] LOWER LEG INC 70737 OTHER LATE 09-20-2014 [facility] AMPUTATION [facility] STUMP INC COMPLICATIO N [facility] 64174 NONEXUDATIV 03-15-2014 [facility] E SENILE JAM MACULAR DEGENERATIO N RETINA 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 7242 LUMBAGO 11-12-2013 [facility] 7243 SCIATICA 11-12-2013 [facility] INC V5869 LONG-TERM 09-12-2013 [facility] (CURRENT) [facility] USE OF INC OTHER MEDICATIONS 4293 CARDIOMEGAL 08-25-2013 [place] Y MEDICAL IM[facility]ING ASS V6759 OTHER 08-25-2013 [place] FOLLOW-UP MEDICAL EXAMINATION IMAGING ASS OTHER V676 COMBINED 08-25-2013 [place] TREATMENT MEDICAL FOLLOW-UP IMAGING ASS EXAMINATION V711 OBSERVATION 08-25-2013 [facility] FOR [facility] SUSPECTED INC MALIGNANT NEOPLASM 461.9 461.9 ACUTE 04-17-2013 [facility] SINUSITIS [facility] 4619 ACUTE 04-17-2013 [facility] SINUSITIS, EMERGENCY UNSPECIFIED SERVICES 05346 OTHER 04-17-2013 [facility] DISEASES OF EMERGENCY NASAL SERVICES CAVITY AND SINUSES 7291 UNSPECIFIED 04-17-2013 [place] MYALGIA [facility]ICAL AND IMAGING ASS MYOSITIS 7862 COUGH 04-17-2013 [facility] V14.8 V14.8 04-17-2013 [facility] HX-DRUG [facility] V148 PERSONAL 04-17-2013 [facility] HISTORY [facility] ALLERGY OTH INC SPEC MEDICINAL AGTS 56248 NUCLEAR 03-16-2013 [facility] SCLEROSIS JAM 6929 CONTACT 12-03-2012 [facility] DERMATITIS& VALLEY OTHER INTERNAL ECZEMA DUE MED UNSPEC CAUSE V103 PERSONAL 09-17-2012 [place] HISTORY OF MEDICAL MALIGNANT IMAGING ASS NEOPLASM OF BREAST V8741 PERSONAL 09-17-2012 [place] HISTORY OF MEDICAL ANTINEOPLAS IMAGING ASS TIC [...] HOSP ESOPHAGUS INC 5920 CALCULUS OF 02-25-2012 [place] KIDNEY [facility]ICAL IM[facility]ING ASS 86591 DEHYDRATION 11-21-2011 [facility] INTERNAL MED 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 4778 ALLERGIC 09-05-2011 [facility] RHINITIS VALLEY DUE TO INTERNAL OTHER MED ALLERGEN 55283 UNSPECIFIED 09-01-2011 [place] [facility] ESOPHAGITIS [facility] 13326 ACUTE 09-01-2011 PATHOLOGY & GASTRITIS CYTOLOGY WITHOUT LAB MENTION OF HEMORRHAGE 17444 ATROPHIC 09-01-2011 PATHOLOGY & GASTRITIS CYTOLOGY WITHOUT LAB MENTION OF HEMORRHAGE 98976 OTHER 08-13-2011 [place] DISEASES OF MEDICAL LUNG NOT IMAGING ASS ELSEWHERE CLASSIFIED 04892 PAIN IN 05-23-2011 [place] JOINT MEDICAL PELVIC IMAGING ASS REGION AND THIGH 08775 UNSPECIFIED 05-23-2011 [place] MEDICAL OSTEOPOROSI IMAGING ASS S 7937 NONSPC ABN 05-23-2011 [place] FINDNG RAD MEDICAL & OTH EXM IMAGING ASS MUSCULSKELT L SYS 69494 DYSPHAGIA 05-19-2011 [place] [facility] UNSPECIFIED SERV F[facility]IO 12793 ACUTE 09-02-2010 PATHOLOGY & ESOPHAGITIS CYTOLOGY LAB 32956 ULCER OF 09-02-2010 PATHOLOGY & ESOPHAGUS CYTOLOGY WITHOUT LAB BLEEDING 25998 ULCER OF 09-02-2010 [place] [facility] ESOPHAGUS SERV WITH FOUNDATIO BLEEDING 7934 NONSPECIFIC 09-02-2010 [place] [facility] ABN SERV FINDING RAD FOUNDATIO & OTH EXAM GI TRACT 49713 FLUSHING 08-29-2010 [place] [address] UNSPECIFIED 08-16-2010 [facility] ARTHROPATHY INTERNAL , LOWER LEG MED 7823 EDEMA 08-05-2010 [facility] INTERNAL MED 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 INC 5693 HEMORRHAGE 03-18-2010 [facility] OF RECTUM [facility] AND ANUS INC 79461 OTHER 03-18-2010 [facility] SPECIFIED [facility] DISORDER OF INC INTESTINES 5781 BLOOD IN 03-18-2010 [place] [facility] STOOL SERV [facility] 25759 UNSPECIFIED 03-06-2010 [place] [address] VITREOUS 03-06-2010 [facility] DEGENERATIO JAM N V551 ATTENTION 12-27-2009 [facility] TO [facility] GASTROSTOMY INC 57300 UNSPECIFIED 05-25-2009 [facility] CONJUNCTIVI INTERNAL TIS MED 1508 MALIGNANT 04-17-2009 [facility] NEOPLASM [facility] OTHER SPEC INC PART ESOPHAGUS 06720 UNSPEC 04-09-2009 [facility] POLYARTHROP VALLEY ATHY/POLYAR INTERNAL THRIT MX MED SITES 7069 UNSPECIFIED 03-13-2009 NEW DISEASE [place] 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 93898 OTHER 08-18-2008 [facility] MALAISE AND [facility] FATIGUE INC 53238 PERIPH 08-16-2008 [facility], CHORIORETIN ALEM AL SCARS 6829 CELLULITIS 06-26-2008 [facility] AND ABSCESS VALLEY OF INTERNAL UNSPECIFIED MED SITE 2110 BENIGN 05-22-2008 [place] [facility] NEOPLASM OF SERV ESOPHAGUS FOUNDATIO 7804 DIZZINESS 03-06-2008 [facility] AND VALLEY GIDDINESS INTERNAL MED 39368 OTHER 2007 [facility] DYSPHAGIA [facility] INC 2639 UNSPECIFIED 10-24-2007 [facility] PROTEIN-AMANDO ORIE MALNUTRITIO N 25891 MUCOSITIS 09-20-2007 [facility] DUE TO VALLEY ANTINEOPLAS INTERNAL TIC THERAPY MED 5990 URINARY 09-20-2007 [facility] TRACT VALLEY INFECTION INTERNAL SITE NOT MED SPECIFIED 27050 VOMITING 09-17-2007 [facility] 39412 SWELLING OF 09-13-2007 [facility] PROF SERV V5811 ENCOUNTER 09-08-2007 [facility] FOR [facility] ANTINEOPLAS INC TIC CHEMOTHERAP Y V153 PERS HX 07-26-2007 [facility] PRESENTING [facility] V5881 FITTING AND 07-26-2007 [facility] VASCULAR CATHETER 9961 MECH COMP 07-23-2007 [facility] VASCULAR DEVICE IMPLANT&GRA FT V441 GASTROSTOMY 07-23-2007 [facility] 71909 NAUSEA WITH 06-29-2007 [facility] VOMITING [facility] INC 76872 SHORTNESS 06-24-2007 [facility] OF BREATH [facility] INC 56008 MECHANICAL 06-19-2007 [facility] COMPLICATIO [facility] N [...] 10-2 33 MCKE No LICK 23 2-20 ECHO ING VACC 12 JR VALL [...] DOS Code Location Performer Comment PROSTHETI L8420 [facility] C[facility]TER ROCK CUTTER C SOCK 7 PROSTHETI PROSTHETI MULTIPLE CS & CS & PLY BELOW ORTHOTI ORTHOTI KNEE EACH 42974 COMBINED COMBINED HYDROXY 7 PHYSICIAN PHYSICIAN INCLUDES S LA S LA FRACTIONS IF PERFORMED COMPREHEN 08755 COMBINED COMBINED SIVE 7 PHYSICIAN PHYSICIAN METABOLIC S LA S LA PANEL DETERMINA 39527 [facility] EYE REFRACTIV CENTER, E STATE P.S.C. OPHTHALMO 46546 [facility] FLYNN [facility] EYE EXTENDED CENTER, RETINAL P.S.C. DRAWING I&R 1ST INJECTION J0696 [facility] HARMON 6 ROCAEL ROCAEL CEFTRIAXO NE SODIUM PER 250 MG HIGH K0004 [facility] MARTI STRENGTH 6 HOME HOME [facility] EQUIPME EQUIPME WHEELCHAI R HIGH K0004 MARTI MARTI STRENGTH 6 [facility] EQUIPME EQUIPME WHEELCHAI R DETERMINA 72534 [facility] DUENSA 6 EYE REFRACTIV CENTER, E STATE P.S.C. [...] HT EQUIPME EQUIPME WHEELCHAI R RADEX HIP 99119 [place] FILIPPO 6 MEDICAL PIERRE UNILATERA IMAGING L WITH ASS PELVIS 2-3 VIEWS HIGH K0004 M[facility]I MARTI STRENGTH 6 HOME HOME [facility] EQUIPME EQUIPME WHEELCHAI R HIGH K0004 MARTI MARTI STRENGTH 6 HOME HOME [facility] EQUIPME EQUIPME WHEELCHAI R 11583 COMBINED COMBINED HYDROXY 6 PHYSICIAN PHYSICIAN INCLUDES S LA S LA FRACTIONS IF PERFORMED HIGH K0004 [facility] 6 HOME HOME [facility] EQUIPME EQUIPME [facility] OPHTHALMO 38973 [facility] FLYNN 6 EYE JAM EXTENDED CENTER, RETINAL P.S.C. DRAWING I&R 1ST DETERMINA 02111 [facility] RECINOSON 6 EYE EYE REFRACTIV CENTER, CENTER, E STATE P.S.C. P.S.C. HIGH K0004 [facility] HOME HOME [facility]QUIPME [facility]QU[facility]ME [facility] 02111 [place] NOBLE ALL &/JOINT 6 MEDICAL IMAGING IMAGING WHOLE ASS BODY RADIOLOGI 62715 [place] NOBLE ALL C 6 MEDICAL EXAMINATI IMAGING ON PELVIS ASS 1/2 VIEWS HIGH K0004 [facility]I KIDD [facility] 6 HOME HOME [facility] EQUIPME EQUIPME [facility] LOCM Q9967 [facility] MORRIS [phone] MEM HOS[facility] MG/ML INC INC IODINE CONCENTRA TION PER ML COLLECTIO 15797 [facility] MORRIS N VENOUS 6 MEM HOS[facility] [place] [address] [facility] MOR[facility] UREA 6 MEM HOS[facility] NITROGEN INC INC QUANTITAT KONSTANTIN CREATININ 57600 [facility] MORRIS E BLOOD 6 MEM HOS[facility] INC INC CT THORAX 14403 [place] JUDY 6 MEDICAL PRAFUL W/CONTRAS IMAGING T ASS MATERIAL NON-INVAS 36379 [facility] KONSTANTIN 6 MEM HOSP [facility] PHYSIOLOG INC INC IC STUDY EXTREMITY 3 LEVLS DESTRUCTI 32875 [facility] MAURICIO ON BENIGN 6 RONI CHRISTIAN LESIONS 15/> HIGH K0004 MARTI KIDD STRENGTH 5 HOME HOME [facility] [place] [address] COMBINED COMBINED BLOOD/URI 5 PHYSICIAN PHYSICIAN C ACID S LA S LA ANTINUCLE 44193 [facility] AR 5 SAI SAI ANTIBODIE HOLDINGS HOLDINGS S GLORY RHEUMATOI 74992 COMBINED COMBINED D FACTOR 5 PHYSICIAN PHYSICIAN QUALITATI S LA S LA VE SEDIMENTA 89069 COMBINED COMBINED TION RATE 5 PHYSICIAN PHYSICIAN RBC S LA S LA NON-AUTOM ATED RADEX 98633 [place] DICKEY ALL FOOT 5 MEDICAL COMPLETE IMAGING MINIMUM 3 [place] [address] COMBINED COMBINED THYROID 5 PHYSICIAN PHYSICIAN STIMULATI [...] MEDICAL HT EQUIPME EQUIPME WHEELCHAI R LIPID 62831 [facility] PANEL 5 [facility] HOS[facility] INC INC COMPREHEN 43403 [facility] SIVE 5 [facility] METABOLIC INC INC PANEL HEMOGLOBI 23679 [facility] M[facility]IS N 5 [facility] H[facility] MEM HOS[facility] GLYCOSYLA INC INC BEAU A1C BLOOD 33765 [facility] M[facility] COUNT 5 [facility] COMPLETE INC INC AUTO&AUTO DIFRNTL WBC COLLECTIO 31027 [facility] N VENOUS 5 [facility] HOS[facility]OS[facility] BLOOD INC INC VENIPUNCT URE EGD 92133 [facility] BLANCA TOD TRANSORAL 5 PHYSICIAN BIOPSY S GROUP SINGLE/[place] [address] A[facility]DRA MORRIS INFUSION 5 MEM HOSP [facility]OS[facility] THERAPY/P INC INC ROPHYLAXI S /DX 1ST TO [place] [address] [facility] CALABRESE SURG 5 MATT & ROCAEL PATHOLOGY DUBILIER GROSS&[place] [address] [facility] M[facility] INFUSION 5 [facility] HOS[facility] THERAPY INC INC PROPHYLAX IS/DX EA HOUR BLOOD 66234 [facility] M[facility] COUNT 5 MEM H[facility]OS[facility] COMPLETE INC INC AUTO&AUTO DIFRNTL WBC IRON 90648 [facility] A[facility]DRA BINDING 5 [facility] CAPACITY INC INC COLLECTIO 67889 [facility] [place] N VENOUS 5 MEM HOSP MEM HOS[facility] BLOOD INC INC VENIPUNCT URE BLOOD 35178 [facility] OCCULT 5 MEM H[facility] PEROXIDAS INC INC E ACTV QUAL FECES 1-3 [place] [address] [facility] MORRIS [id number] 5 MEM HOS[facility] [place] [address] A[facility] M[facility] FOLIC 5 [facility] [place] [address] A[facility]AN[facility]A ALEXANDRA IRON 5 [place] [address] [facility] M[facility] FERRITIN 5 [facility] H[facility]OS[facility] INC INC 25 53963 COMBINED COMBINED HYDROXY 5 PHYSICIAN PHYSICIAN INCLUDES S LA S LA FRACTIONS IF PERFORMED HEMOGLOBI 61106 COMBINED COMBINED N 5 PHYSICIAN PHYSICIAN GLYCOSYLA S LA S LA BEAU A1C BLOOD 19874 COMBINED COMBINED COUNT 5 PHYSICIAN PHYSICIAN COMPLETE S LA S LA AUTO&AUTO DIFRNTL WBC COMPREHEN 14855 COMBINED COMBINED SIVE 5 PHYSICIAN PHYSICIAN METABOLIC S LA S LA PANEL LIPID 16155 COMBINED COMBINED PANEL 5 PHYSICIAN PHYSICIAN S LA S LA PROSTHETI L8400 BLUE BLUE C SHEATH 5 GRASS GRASS BELOW ARTIFICIA ARTIFICIA KNEE EACH L LIMB C L LIMB C PROSTHETI L8420 BLUE BLUE C SOCK 5 GRASS GRASS MULTIPLE ARTIFICIA ARTIFICIA PLY BELOW L LIMB C L LIMB C KNEE EACH LIPID 68984 [facility] PANEL 5 [facility] INC INC COMPREHEN 44839 A[facility] SIVE 5 [facility]OS[facility] METABOLIC INC INC PANEL HEMOGLOBI 90650 [facility] M[facility]RIS N 5 [facility] H[facility] MEM HOSP GLYCOSYLA INC INC BEAU A1C BLOOD 51386 [facility] COUNT 5 [facility]OS[facility] COMPLETE INC INC AUTO&AUTO DIFRNTL WBC 25 19638 [facility] HYDROXY 5 [facility]OS[facility] INCLUDES INC INC FRACTIONS IF PERFORMED COLLECTIO 78559 A[facility] N VENOUS 5 [facility] BLOOD INC INC VENIPUNCT URE RADIOLOGI 84877 [place] SARKAR C 5 MEDICAL PRAFUL EXAMINATI IMAGING ON KNEE 3 ASS VIEWS LIPID 28483 [facility] M[facility]RIS PANEL 5 [facility] INC INC COLLECTIO 96989 [facility] M[facility]IS N VENOUS 5 [facility] BLOOD INC INC VENIPUNCT URE BLOOD 37573 ALEXANDRAREHANA MORRIS COUNT 5 [facility] COMPLETE INC INC AUTO&AUTO DIFRNTL WBC COMPREHEN 75611 A[facility] M[facility]IS SIVE 5 [facility] METABOLIC INC INC PANEL DETERMINA 30574 Z[facility] WORTHY TION 4 IAN SOSA REFRACTIV E STATE OPHTHALMO 23591 ZAYNAB WORTHY SCPY 4 IAN JAM EXTENDED RETINAL DRAWING I&R 1ST ADD LW L5665 BLUE BLUE EXTRM 4 GRASS GRASS SOCKT ARTIFICIA ARTIFICIA INSRT L LIMB C L LIMB C MXIDUROME TER BELW KNEE ADDITION L5668 BLUE BLUE LOW 4 GRASS GRASS EXTREM ARTIFICIA ARTIFICIA BELOW L LIMB C L LIMB C KNEE MOLDED DIST CUSHN LIPID 62166 A[facility]A MORRIS PANEL 4 [facility] INC INC COLLECTIO 60779 [facility] M[facility]RIS N VENOUS 4 [facility] BLOOD INC INC VENIPUNCT URE BLOOD 36401 [facility] COUNT 4 [facility] COMPLETE INC INC AUTO&AUTO DIFRNTL WBC COMPREHEN 76679 A[facility] M[facility] SIVE 4 [facility] METABOLIC INC INC PANEL PROSTHETI L8400 BLUE BLUE C SHEATH 4 GRASS GRASS BELOW ARTIFICIA ARTIFICIA KNEE EACH L LIMB C L LIMB C PROSTHETI L8420 BLUE BLUE C SOCK 4 GRASS GRASS MULTIPLE ARTIFICIA ARTIFICIA PLY BELOW L LIMB C L LIMB C KNEE EACH RADEX 64549 [place] FILIPPO SPINE 4 MEDICAL PIERRE LUMBOSACR IMAGING AL ASS MINIMUM 4 VIEWS OPHTHALMO 14066 Z[facility] WORTHY SCPY 4 IAN SOSA EXTENDED RETINAL DRAWING I&R 1ST DETERMINA 37086 ZAYNAB DUENAS 4 [place] [address] A[facility]A MORRIS INFUSION 4 [facility] THERAPY/P INC INC ROPHYLAXI S /DX 1ST TO 1 HR ESOPHAGOG 16637 [place] ELISEO BRAGG ASTRODUOD 4 MEDICAL ENOSCOPY [place] [address] [facility] INFUSION 4 [facility] THERAPY INC INC PROPHYLAX IS/DX EA HOUR 3D 76755 [facility] RENDERING 4 [facility] INC INC W/INTERP& POSTPROC DIFF WORK STATION LIPID 65190 ALEXANDRA MORRIS PANEL 4 [facility] INC COLLECTIO 58850 ALEXANDRA MORRIS N VENOUS 4 [facility] BLOOD INC INC VENIPUNCT [facility]RE [facility] THORAX 26512 [facility] [place] [address] [place] FIL[facility] MAXILLOFA 4 MEDICAL [facility] CIAL W/O IMAGING CONTRAST ASS MATERIAL CT SOFT 54726 [place] FIL[place] TISSUE 4 MEDICAL [facility] NECK W/O IMAGING CONTRAST ASS MATERIAL COMPREHEN 29568 ALEXANDRA MORRIS SIVE 4 [facility] METABOLIC INC INC PANEL BLOOD 30752 ALEXANDRA MORRIS COUNT 4 [facility] COMPLETE INC INC AUTO&AUTO DIFRNTL WBC COLLECTIO 78766 ALEXANDRA MORRIS N VENOUS 4 [facility] BLOOD INC INC VENIPUNCT URE CREATININ 26393 ALEXANDRA MORRIS E BLOOD 4 [place] [address] ALEXANDRA MORRIS UREA 4 [facility] NITROGEN INC INC QUANTITAT KONSTANTIN IAADI 33445 ALEXANDRA M[facility] INFLUENZA 3 [facility] B VIRUS INC INC RADIOLOGI 33518 [facility] EXAM 3 MED[facility] PIERRE CHEST 2 IMAGING VIEWS ASS FRONTAL&L ATERAL IAADI 92439 ALEXANDRA MORRIS INFFLUENZ 3 [facility] [place] [address] ALEXANDRA MORRIS STREPTOCO 3 [facility] CCUS INC INC GROUP A CUL BACT 91669 ALEXANDRA MORRIS XCPT 3 [facility] URINE INC INC BLOOD/STO OL AEROBIC ISOL OPHTHALMO 91677 ZAYNAB WORTHY SCPY 3 JAM JAM EXTENDED RETINAL DRAWING I&R 1ST DETERMINA 06245 ZAYNAB WORTHY TION 3 JAM JAM REFRACTIV E STATE BLOOD 36794 ALEXANDRA MORRIS COUNT 3 [facility] COMPLETE INC INC AUTO&AUTO DIFRNTL WBC COMPREHEN 06545 ALEXANDRA MORRIS SIVE 3 [facility] METABOLIC INC INC PANEL RADIOLOGI 12509 ALEXANDRA MORRIS C EXAM 3 [facility] CHEST 2 INC INC VIEWS FRONTAL&L ATERAL COLLECTIO 46774 ALEXANDRA MORRIS N VENOUS 3 [facility] BLOOD INC INC VENIPUNCT URE OPHTHALMO 75269 ZAYNAB WORTHY SCPY 3 JAM JAM EXTENDED RETINAL DRAWING I&R 1ST DETERMINA 32832 ZAYNAB WORTHY TION 3 JAM JAM REFRACTIV E STATE COLLECTIO 12785 ALEXANDRA MORRIS N VENOUS 3 [facility] [place] [address] ALEXANDRA MORRIS UREA 3 [facility] NITROGEN INC INC QUANTITAT KONSTANTIN CREATININ 81160 ALEXANDRA MORRIS E BLOOD 3 [facility] INC INC CT THORAX 77311 [place] FILIPPO W/O 3 MEDICAL PIERRE CONTRAST IMAGING MATERIAL ASS 3D 05371 [place] FILIPPO RENDERING 3 MEDICAL PIERRE IMAGING W/INTERP& [place] [address] ALEXANDRA MORRIS INFUSION 3 [facility] THERAPY INC INC PROPHYLAX IS/DX EA HOUR ESOPHAGOG 55743 TAM BRAGG ASTRODUOD 3 MEDICAL ENOSCOPY SERV [place] [address] COMBINED COMBINED THYROID 3 PHYSICIAN PHYSICIAN STIMULATI S LA S LA NG HORMONE TSH COLLECTIO 84497 COMBINED COMBINED N VENOUS 3 PHYSICIAN PHYSICIAN BLOOD S LA S LA VENIPUNCT URE BLOOD 19912 COMBINED COMBINED COUNT 3 PHYSICIAN PHYSICIAN COMPLETE S LA S LA AUTO&AUTO DIFRNTL WBC COMPREHEN 30640 COMBINED COMBINED SIVE 3 PHYSICIAN PHYSICIAN METABOLIC S LA S LA PANEL LIPID 24040 COMBINED COMBINED PANEL 3 [place] [address] ALEXANDRA MORRIS [facility] 2 [facility] THERAPY INC INC PROPHYLAX [place] [address] ALEXANDRA ALEXANDRA INFUSION 2 [facility] THERAPY/P INC INC ROPHYLAXI S /DX 1ST TO 1 HR CATHETER C1726 ALEXANDRA MORRIS [facility]ALLOON 2 [facility] DILATATIO INC [place] [address] [place] MAHSA BALLO[place] 2 MEDICAL DILATION SERV ESOPHAGUS FOUNDATIO <30 MM DIAM PPSV23 72160 [place] [facility] VACCINE 2 2 [facility]LEY JR OPAL YRS OR INTERNAL OLDER FOR MED SUBQ/IM USE IM ADM 68911 [place] [facility] PRQ ID 2 [facility] JR OPAL SUBQ/IM INTERNAL NJXS 1 MED VACCINE TDAP 29114 [place] VACCINE 7 2 VALLEY JR OPAL YRS/> IM INTERNAL MED INFLUENZA Q2038 [place] VACC 2 [facility] SPLIT INTERNAL INTERNAL VIRUS 3 MED MED YRS & > IM FLUZONE ADMINISTR G0008 [place] ATION OF 2 [facility] INFLUENZA INTERNAL [place] [address] ALEXANDRA ALEXANDRA ABDOMEN & 2 [facility] PELVIS [place] [address] [place] ABDOMEN & 2 MEDICAL [facility] PELVIS IMAGING W/O ASS CONTRAST MATERIAL CT THORAX 04376 [place] 2 [facility] [place] W/CONTRAS IMAGING T ASS MATERIAL 3D 73593 [place] RENDERING 2 MEDICAL [place] IMAGING W/INTERP& ASS POSTPROC DIFF WORK STATION LOC Q9967 ALEXANDRA ALEXANDRA [phone] [facility] MG/ML INC INC IODINE CONCENTRA TION PER ML COMPREHEN 17707 ALEXANDRA MORRIS SIVE 2 [facility] METABOLIC INC INC PANEL COLLECTIO 69716 ALEXANDRA MORRIS N VENOUS 2 [facility] BLOOD INC INC VENIPUNCT URE BLOOD 75843 ALEXANDRA MORRIS COUNT 2 [facility] COMPLETE INC INC AUTO&AUTO DIFRNTL [place]BC E[place] 78119 [place] MAH[place] 2 MEDICAL DILATION SERV ESOPHAGUS FOUNDATIO <30 [place] [address] ALEXANDRA MORRIS INFUSION 2 [facility] THERAPY/P INC INC ROPHYLAXI S /DX 1ST TO 1 HR CATHETER C1726 ALEXANDRA MORRIS [place] 2 [facility] [place]ATAT[place] [address] ALEXANDRA MORRIS INFUSION 2 [facility] THERAPY INC INC PROPHYLAX IS/DX EA HOUR OPHTHALMO 67291 ZAYNAB WORTHY SCPY 2 JAM JAM EXTENDED RETINAL DRAWING I&R 1ST OPHTH 26874 ZAYNAB WORTHY MEDICAL 2 JAM JAM XM&EVAL COMPRHNSV ESTAB PT 1/> DETERMINA 72161 ZAYNAB WORTHY TION 2 JAM JAM REFRACTIV E STATE BLOOD 71021 ALEXANDRA MORRIS COUNT 2 [facility] COMPLETE INC INC AUTO&AUTO DIFRNTL WBC COLLECTIO 99092 ALEXANDRA MORRIS N VENOUS 2 [facility] BLOOD INC INC VENIPUNCT URE COMPREHEN 52782 ALEXANDRA MORRIS SIVE 2 [facility] [address] ALEXANDRA MORRIS INFUSION 2 [facility] THERAPY/P INC INC ROPHYLAXI S /DX 1ST TO 1 HR CATHETER C1726 ALEXANDRA SANTAON BALLOON 2 [facility] DILATATIO INC INC N [place]-VASCU [place] EGD 26527 [place] MAHSA [place] 2 MEDICAL DILATION SERV ESOPHAGUS FOUNDATIO <30 [place] [address] ALEXANDRA MORRIS INFUSION 2 [facility] THERAPY INC [place] [address] ALEXANDRA SANTAON INFUSION 2 [facility] THERAPY INC INC PROPHYLAX IS/DX [place] EGD 17649 [place] MAHSA [place] 2 MEDICAL DILATION SERV ESOPHAGUS FOUNDATIO <30 MM DIAM CATHETER C1726 ALEXANDRA ALEXANDRA [place] 2 [facility] [place] [address] ALEXANDRAREHANA SANTAON INFUSION 2 [facility] THERAPY/P INC INC ROPHYLAXI S /DX 1ST TO 1 HR DETERMINA 86904 ZAYNAB WORTHY TION 2 IAN JAM REFRACTIV E STATE OPHTHALMO 40668 ZAYNAB WORTHY SCPY 2 JAM JAM EXTENDED RETINAL DRAWING I&R 1ST THERAPEUT 17921 [place] [facility] IC 2 [facility] OPAL PROPHYLAC INTERNAL TIC/DX MED INJECTION SUBQ/IM INJECTION J3301 [facility] [address] [place] [address] TRIAMCINO INTERNAL INTERNAL LONE MED MED ACETONIDE NOS 10 MG EGD 83198 [place] MAHSA TRANSORAL 2 MEDICAL BIOPSY SERV SINGLE/MU FOUNDATIO LTIPLE SPCL STN 69474 PATHOLOGY PATHOLOGY 2 I&R 2 & & EXCPT CYTOLOGY CYTOLOGY MICROORG/ LAB LAB ENZYME/IM CYT CATHETER C1726 ALEXANDRA SANTAON [place] 2 [facility] DILATATIO INC INC N NON-VASCU LAR EGD 86853 [place] MAHSA [place] 2 MEDICAL DILATION SERV ESOPHAGUS FOUNDATIO <30 [place] [address] ALEXANDRA MORRIS INFUSION 2 [facility] THERAPY/P INC INC ROPHYLAXI S /DX 1ST [place] 1 [place] [address] ALEXANDRA MORRIS INFUSION 2 [facility] THERAPY INC INC [place] [address] PATHOLOGY PATHOLOGY SURG 2 & & PATHOLOGY CYTOLOGY CYTOLOGY LAB LAB GROSS&JOSE CRUZ ROSCOPIC EXAM 3D 12302 ALEXANDRA MORRIS RENDERING 2 [facility] INC INC W/INTERP& POSTPROC DIFF WORK STATION COMPREHEN 20473 ALEXANDRA MORRIS SIVE 2 [facility] METABOLIC INC INC PANEL BLOOD 17279 ALEXANDRA MORRIS COUNT 2 [facility] COMPLETE INC INC AUTO&AUTO DIFRNTL WBC COLLECTIO 91408 ALEXANDRA MORRIS N VENOUS 2 [facility] BLOOD INC INC VENIPUNCT URE CT THORAX 41622 CAROLINA EDMONDSONCHER W/O 2 MEDICAL [place] [address] ALEXANDRA MORRIS ABDOMEN & 2 [facility] PELVIS INC INC W/O CONTRAST MATERIAL COLLECTIO 03174 COMBINED COMBINED N VENOUS 2 PHYSICIAN PHYSICIAN BLOOD S LA S LA VENIPUNCT URE BLOOD 53379 COMBINED COMBINED COUNT 2 PHYSICIAN PHYSICIAN COMPLETE S LA S LA AUTO&AUTO DIFRNTL WBC COMPREHEN 66325 COMBINED COMBINED SIVE 2 PHYSICIAN PHYSICIAN METABOLIC S LA S LA PANEL TRAVEL [address] MED 2 PHYSICIAN PHYSICIAN NEC LAB S LA S LA SPEC; [place] [address] ALEXANDRA MORRIS INFUSION 2 [facility] THERAPY/P INC INC ROPHYLAXI S /DX 1ST TO 1 HR CATHETER C1726 ALEXANDRA MORRIS [place] 2 [facility] DILATATIO INC INC N [place]-VASCU [place] EGD 56525 [place] MAHSA [place] 2 MEDICAL DILATION SERV ESOPHAGUS FOUNDATIO <30 [place] [address] ALEXANDRA ALEXANDRA INFUSION 2 [facility] THERAPY INC [place] [address] ALEXANDRA ALEXANDRA INFUSION 2 [facility] THERAPY INC INC PROPHYLAX IS/[place] 30660 [place] MAHSA [place] 2 MEDICAL DILATION SERV ESOPHAGUS FOUNDATIO <30 MM DIAM CATHETER C1726 ALEXANDRA SANTAON [place] 2 [facility] [place]AT[place] [address] ALEXANDRA ALEXANDRA INFUSION 2 [facility] THERAPY/P INC INC ROPHYLAXI S /DX 1ST TO 1 HR RADIOLOGI 73680 CAROLINA BARKLEY C EXAM 2 MEDICAL [facility] CHEST 2 IMAGING VIEWS ASS FRONTAL&L ATERAL CT LUMBAR 92696 CAROLINA BARKLEY SPINE 1 MEDICAL PIERRE W/O IMAGING CONTRAST ASS MATERIAL RADEX HIP 45503 [place] FIL[place] 1 MEDICAL PIERRE UNILATERA IMAGING L ASS COMPLETE MINIMUM 2 VIEWS RADIOLOGI 18062 CAROLINA BARKLEY C 1 MEDICAL PIERRE EXAMINATI IMAGING ON FEMUR ASS 2 VIEWS 3D 58329 ALEXANDRA MORRIS RENDERING 1 [facility] INC INC W/INTERP& [place] DI[place] [address] ALEXANDRA MORRIS INFUSION 1 [facility] THERAPY INC [place] [address] ALEXANDRA MORRIS INFUSION 1 [facility] THERAPY/P INC INC ROPHYLAXI S /DX 1ST TO 1 HR CATHETER C1726 ALEXANDRA ALEXANDRA [place] 1 [facility] DILATATIO INC INC [place] EGD [address]89 [place] MAH[place] 1 MEDICAL DILATION SERV ESOPHAGUS FOUNDATIO <30 MM DIAM CATHETER C1726 ALEXANDRA ALEXANDRA [place] 1 [facility] [place] [address] ALEXANDRA SANTAON INFUSION 1 [facility] THERAPY/P INC INC ROPHYLAXI S /DX 1ST TO 1 [place] EGD 49037 [place] MAH[place] 1 MEDICAL DILATION SERV ESOPHAGUS FOUNDATIO <30 [place] [address] ALEXANDRA SANTAON INFUSION 1 [facility] THERAPY INC INC PROPHYLAX IS/DX EA HOUR OPHTHALMO 66877 ZAYNAB WORTHY SCPY 1 JAM JAM EXTENDED RETINAL DRAWING I&R 1ST EGD 45219 [place] MAH[place] 1 MEDICAL DILATION SERV ESOPHAGUS FOUNDATIO <30 [place] [address] ALEXANDRA MORRIS INFUSION 1 [facility] THERAPY/P INC INC ROPHYLAXI S /DX 1ST TO 1 HR CATHETER C1726 ALEXANDRA ALEXANDRA [place] 1 [facility] DILATATIO [place] [address] ALEXANDRA ALEXANDRA INFUSION 1 [facility] THERAPY INC INC PROPHYLAX IS/DX EA HOUR 3D 77326 CAROLINA BARKLEY RENDERING 1 MEDICAL [facility]ER[facility] IMAGING W/INTERP& ASS POSTPROC DIFF WORK STATION CT THORAX 93295 [place] FILIPPO 1 MEDICAL PIERRE W/[place] [address] CAROLINA BARKLEY ABDOMEN & 1 MEDICAL [facility] PELVIS IMAGING W/CONTRAS ASS T MATERIAL COMPREHEN 52799 COMBINED COMBINED SIVE 1 PHYSICIAN PHYSICIAN METABOLIC S LA S LA PANEL TRAVEL [address] MED 1 PHYSICIAN PHYSICIAN NEC LAB S LA S LA SPEC; PRORATD TRIP CHRG COLLECTIO 05098 COMBINED COMBINED N VENOUS 1 PHYSICIAN PHYSICIAN BLOOD S LA S [place] VENIPUNCT URE EGD 29544 [place] MAHSA [place] 1 MEDICAL DILATION SERV ESOPHAGUS FOUNDATIO <30 [place] [address] ALEXANDRA ALEXANDRA INFUSION 1 [facility] THERAPY/P INC INC ROPHYLAXI S /DX 1ST TO 1 HR CATHETER C1726 ALEXANDRA ALEXANDRA [place] 1 [facility] DILATATIO INC INC N NON-VASCU LAR EGD 08102 [place] MAHSA TRANSORAL 1 MEDICAL BIOPSY SERV SINGLE/[place] [address] ALEXANDRA ALEXANDRA INFUSION 1 [facility] THERAPY INC INC PROPHYLAX IS/DX EA HOUR OPHTHALMO 20754 ZAY[facility]B [facility] 1 IAN SOSA EXTENDED RETINAL DRAWING I&R 1ST OPHTH 63187 [facility] 1 IAN SOSA XM&EVAL COMPRHNSV ESTAB PT 1/> EGD 17131 [place] MAHSA TRANSORAL 1 MEDICAL BIOPSY SERV SINGLE/MU FOUNDATIO LTIPLE SPCL STN 27237 PATHOLOGY PATHOLOGY 2 I&R 1 & & EXCPT CYTOLOGY CYTOLOGY MICROORG/ LAB LAB ENZYME/[place] [address] ALEXANDRA ALEXANDRA INFUSION 1 [facility] THERAPY/P INC INC ROPHYLAXI S /DX 1ST TO 1 HR CATHETER C1726 ALEXANDRA ALEXANDRA [place] 1 [facility] [place]ATIO [place] [address] ALEXANDRA ALEXANDRA INFUSION 1 [facility] THERAPY INC INC PROPHYLAX IS/DX EA HOUR IMHISTOCH 59703 PATHOLOGY PATHOLOGY EM/CYTCHM 1 & & 1ST CYTOLOGY CYTOLOGY ANTIBODY [place] [address] PATHOLOGY PATHOLOGY SURG 1 & & PATHOLOGY CYTOLOGY CYTOLOGY LAB LAB GROSS&JOSE CRUZ ROSCOPIC EXAM COLLECTIO 67854 COMBINED COMBINED N VENOUS 1 PHYSICIAN PHYSICIAN [place] [address] [place] ABDOMEN & 1 [facility] PELVIS IMAGING W/CONTRAS ASS T MATERIAL CT THORAX 23851 [place] 1 MEDICAL [facility]ER[place] W/CONTRAS IMAGING T ASS MATERIAL 3D 08028 ALEXANDRA MORRIS RENDERING 1 [facility] INC INC W/INTERP& POSTPROC DIFF WORK STATION COMPREHEN 55333 COMBINED COMBINED SIVE 1 PHYSICIAN PHYSICIAN METABOLIC S LA S LA PANEL COLLECTIO 10285 COMBINED COMBINED N VENOUS 1 PHYSICIAN PHYSICIAN BLOOD S LA S LA VENIPUNCT URE BLOOD 50892 COMBINED COMBINED COUNT 1 PHYSICIAN PHYSICIAN COMPLETE S LA S LA AUTO&AUTO DIFRNTL WBC RADEX 39872 ALEXANDRA MORRIS ESOPHAGUS 0 [facility] INC INC COLONOSCO 03384 [place] MAHSA PY FLX DX 0 MEDICAL W/COLLJ [place] [address] ALEXANDRA SANTAON INFUSION 0 [facility] THERAPY/P INC INC ROPHYLAXI S /DX 1ST TO 1 [place] [address] ALEXANDRA SANTAON INFUSION 0 [facility] THERAPY INC INC PROPHYLAX IS/DX EA HOUR OPHTHALMO 36860 ZAYNAB WORTHY SCPY 0 JAM JAM EXTENDED RETINAL DRAWING I&R 1ST CT PELVIS 93853 [place] 0 MEDICAL PIER[place] W/[place] [address] [place] ABDOMEN 0 MEDICAL PIERRE W/CONTRAS IMAGING T ASS MATERIAL 3D 93310 ALEXANDRA SANTAON RENDERING 0 [facility] INC INC W/INTERP& POSTPROC DIFF WORK STATION CT THORAX 67288 [place] 0 MEDICAL PIERRE W/CONTRAS IMAGING T ASS MATERIAL COLLECTIO 54125 COMBINED COMBINED N VENOUS 0 PHYSICIAN PHYSICIAN BLOOD S LA S LA VENIPUNCT URE TRAVEL [address] MED 0 PHYSICIAN PHYSICIAN NEC LAB S LA S LA SPEC; PRORATD TRIP CHRG BLOOD 11911 COMBINED COMBINED COUNT 0 PHYSICIAN PHYSICIAN COMPLETE S LA S LA AUTO&AUTO DIFRNTL WBC COMPREHEN 51299 COMBINED COMBINED SIVE 0 PHYSICIAN PHYSICIAN METABOLIC S LA S LA PANEL CATHETER C1726 ALEXANDRA MORRIS [place] 0 [facility] [place] [address] ALEXANDRA MORRIS INFUSION 0 [facility] THERAPY/P INC INC ROPHYLAXI S /DX 1ST TO 1 HR EGD 89683 [place] MAHSA TRANSORAL 0 MEDICAL BIOPSY SERV SINGLE/MU FOUNDATIO LTIPLE SPCL STN 53161 PATHOLOGY PATHOLOGY 2 I&R 0 & & EXCPT CYTOLOGY CYTOLOGY MICROORG/ LAB LAB ENZYME/[place] [address] PATHOLOGY PATHOLOGY SURG 0 & & PATHOLOGY CYTOLOGY CYTOLOGY LAB LAB GROSS&[place] [address] ALEXANDRA MORRIS INFUSION 0 [facility] THERAPY INC INC PROPHYLAX IS/DX EA HOUR CHANGE 02580 ALEXANDRA MRORIS GASTROSTO 0 [facility] MY TUBE INC INC PERCUTANE OUS W/O GDNCE COLLECTIO 04190 COMBINED COMBINED N VENOUS 0 PHYSICIAN PHYSICIAN BLOOD S LAB S LAB VENIPUNCT URE BLOOD 76403 COMBINED COMBINED COUNT 0 PHYSICIAN PHYSICIAN COMPLETE S LAB S LAB AUTO&AUTO DIFRNTL WBC COMPREHEN 96215 COMBINED COMBINED SIVE 0 PHYSICIAN PHYSICIAN METABOLIC S LAB S LAB PANEL OPHTH 95872 ZAYNAB WORTHY, MEDICAL 0 ALEM FERRARA XM&EVAL COMPRHNSV ESTAB PT 1/> [place] [address] ALEXANDRA MORRIS ABDOMEN 0 [facility] W/CONTRAS INC INC T MATERIAL CT THORAX 87121 ALEXANDRA MORRIS 0 [facility] W/CONTRAS INC INC T MATERIAL 3D 98307 ALEXANDRA MORRIS RENDERING 0 [facility] INC INC W/INTERP& POSTPROC DIFF WORK STATION COMPREHEN 99088 COMBINED COMBINED SIVE 0 PHYSICIAN PHYSICIAN METABOLIC S LAB S LAB PANEL TRAVEL [address] MED 0 PHYSICIAN PHYSICIAN NEC LAB S LAB S LAB SPEC; PRORATD TRIP CHRG BLOOD 72957 COMBINED COMBINED COUNT 0 PHYSICIAN PHYSICIAN COMPLETE S LAB S LAB AUTO&AUTO DIFRNTL WBC COLLECTIO 64105 COMBINED COMBINED N VENOUS 0 PHYSICIAN PHYSICIAN BLOOD S LAB S LAB VENIPUNCT URE SPCL STN 63018 PATHOLOGY PATHOLOGY 2 I&R 0 & & EXCPT CYTOLOGY CYTOLOGY MICROORG/ LAB LAB ENZYME/IM CYT ENDOSCOPY 42968 [place]OM[place], UPPER 0 MEDICAL PATRICK SMALL SERV INTESTINE FOUNDATIO W/[place] [address] ALEXANDRA MORRIS INFUSION 0 [facility] THERAPY/P INC INC ROPHYLAXI S /DX 1ST TO 1 [place] [address] PATHOLOGY PATHOLOGY SURG 0 & & PATHOLOGY CYTOLOGY CYTOLOGY LAB LAB GROSS&JOSE CRUZ ROSCOPIC EXAM IMHISTOCH 99495 PATHOLOGY PATHOLOGY EM/CYTCHM 0 & & 1ST CYTOLOGY CYTOLOGY [place] [address] ALEXANDRA MORRIS INFUSION 0 [facility] THERAPY INC INC PROPHYLAX IS/DX EA HOUR 3D 31144 ALEXANDRA MORRIS RENDERING 9 [facility] INC INC W/INTERP& POSTPROC DIFF WORK STATION CT THORAX 40809 ALEXANDRA MORRIS W/O 9 [facility] [place] [address] ALEXANDRA MORRIS ABDOMEN 9 [facility] W/O INC INC CONTRAST MATERIAL COLLECTIO 24769 COMBINED COMBINED N VENOUS 9 PHYSICIAN PHYSICIAN BLOOD S LAB S LAB VENIPUNCT URE COMPREHEN 67125 COMBINED COMBINED SIVE 9 PHYSICIAN PHYSICIAN METABOLIC S LAB S LAB PANEL RADIOLOGI 16791 ALEXANDRA MORRIS C 9 [facility] EXAMINATI INC INC ON KNEE 3 VIEWS GONADOTRO 70105 LAB TULIO LAB TULIO PIN 9 [place] AMERIC FOLLICLE HOLDING HOLDING STIMULATI NG HORMONE COMPREHEN 44034 COMBINED COMBINED SIVE 9 PHYSICIAN PHYSICIAN METABOLIC S LAB S LAB PANEL COLLECTIO 03333 COMBINED COMBINED N VENOUS 9 PHYSICIAN PHYSICIAN BLOOD S LAB S LAB VENIPUNCT URE GONADOTRO 45177 LAB TULIO LAB TULIO PIN 9 AMERIC AMERIC LUTEINIZI HOLDING HOLDING NG HORMONE SCR G0145 PATHOLOGY PATHOLOGY CYTOPATH 9 & & CERV/VAG CYTOLOGY CYTOLOGY SCR LAB LAB AUTO&MNL RSCR PHYS URNLS DIP 22244 [place] MCKEMIE 9 [place] JR, STICK/TAB INTERNAL ERLIN F LET RGNT MED NON-AUTO W/O MICRSCP SCR G0124 PATHOLOGY PATHOLOGY CYTOPATH 9 & & CERV/VAG CYTOLOGY CYTOLOGY THIN [place] [address] ALEXANDRA MORRIS INFUSION 9 [facility] THERAPY INC INC [place] [address] PATHOLOGY PATHOLOGY SURG 9 & & PATHOLOGY CYTOLOGY CYTOLOGY LAB LAB GROSS&[place] [address] ALEXANDRA MORRIS INFUSION 9 [facility] THERAPY/P INC INC ROPHYLAXI S /DX 1ST TO 1 HR EGD 85149 [place] GOM[place], [place] 9 MEDICAL PATRICK DILATION SERV ESOPHAGUS FOUNDATIO <30 MM [place] EGD 31700 [place]MO[place], TRANSORAL 9 MEDICAL PATRICK BIOPSY SERV SINGLE/MU FOUNDATIO LTIPLE SPCL STN 68782 PATHOLOGY PATHOLOGY 2 I&R 9 & & EXCPT CYTOLOGY CYTOLOGY MICROORG/ LAB LAB ENZYME/IM CYT CATHETER C1726 ALEXANDRA MORRIS [place] 9 [facility] DILATATIO INC INC N NON-VASCU LAR CHANGE 90699 [place], GASTROSTO 9 MEDICAL PATRICK MY TUBE SERV PERCUTANE FOUNDATIO OUS W/[place] [address] ALEXANDRA MORRIS ABDOMEN 9 [facility] W/CONTRAS INC INC T MATERIAL CT PELVIS 28277 CAROLINA ESTEVEZ, 9 MEDICAL RUTHY P W/CONTR[place] [address] ALEXANDRA MORRIS GUIDANCE 9 [facility] NEEDLE INC INC PLACEMENT IMG S&I CT THORAX 52404 ALEXANDRA MORRIS 9 [facility] W/CONTRAS INC INC T MATERIAL 3D 88801 ALEXANDRA SANTAON RENDERING 9 [facility] INC INC W/INTERP& POSTPROC DIFF WORK STATION IMMUNOASS 83189 LAB TULIO LAB TULIO AY TUMOR 9 AMERIC AMERIC ANTIGEN HOLDING HOLDING QUANTITAT [place] 19-9 COMPREHEN 03545 COMBINED COMBINED SIVE 9 PHYSICIAN PHYSICIAN METABOLIC S LAB S LAB PANEL COLLECTIO 02764 COMBINED COMBINED N VENOUS 9 PHYSICIAN PHYSICIAN BLOOD S LAB S LAB VENIPUNCT URE BLOOD 00992 COMBINED COMBINED COUNT 9 PHYSICIAN PHYSICIAN COMPLETE S LAB S LAB AUTO&AUTO DIFRNTL WBC THYROID 41377 ALEXANDRA MORRIS HORM 9 [facility] UPTK/THYR INC INC OID HORMONE BINDING RATIO CT THORAX 34069 ALEXANDRA MORRIS 9 [facility] W/CONTRAS INC INC T MATERIAL CT PELVIS 65188 ALEXANDRAREHANA MORRIS 9 [facility] W/CONTRAS INC INC T MATERIAL CREATININ 23406 ALEXANDRA MORRIS E BLOOD 9 [place] [address] ALEXANDRA MORRIS ABDOMEN 9 [facility] W/[place] [address] ALEXANDRA MORRIS THYROID 9 [facility] STIMULATI [place] [address] ALEXANDRA MORRIS UREA 9 [facility] NITROGEN [place] [address] ALEXANDRA MORRIS THYROXINE 9 [facility] TOTAL INC INC 3D 38248 ALEXANDRA MORRIS RENDERING 9 [facility] INC INC W/INTERP& POSTPROC DIFF WORK STATION OPHTHALMO 42138 ZAYNAB WORTHY, DEMARIOY 9 ALEM FERRARA EXTENDED RETINAL DRAWING I&R 1ST CHANGE 80951 ALEXANDRA MORRIS GASTROSTO 9 [facility] MY TUBE INC INC PERCUTANE OUS W/O GDNCE CUL BACT 63216 ALEXANDRA MORRIS XCPT 9 [facility] URINE INC INC BLOOD/STO [place]OL IV NFS 34[address] ALEXANDRA MORRIS THER 8 [facility] PROPH/DX INC INC 1ST >1 [place] [address] PATHOLOGY PATHOLOGY SURG 8 & & PATHOLOGY CYTOLOGY CYTOLOGY LAB LAB GROSS&JOSE CRUZ ROSCOPIC EXAM EGD 06722 TAM GOMES, TRANSORAL 8 MEDICAL PATRICK BIOPSY SERV SINGLE/MU FOUNDATIO LTIPLE CATHETER C1726 ALEXANDRA SANTAON [place] 8 [facility] DILATATIO INC INC N NON-VASCU LAR SPCL STN 63943 PATHOLOGY PATHOLOGY 2 I&R 8 & & EXCPT CYTOLOGY CYTOLOGY MICROORG/ LAB LAB ENZYME/IM CYT EGD 21156 TAM GOMES, BALLOON 8 [facility] DILATION SERV ESOPHAGUS FOUNDATIO <30 MM DIAM COMPREHEN 18818 ALEXANDRA MORRIS SIVE 8 [facility] METABOLIC INC INC PANEL BLOOD 47668 ALEXANDRA MORRIS COUNT 8 [facility] COMPLETE INC INC AUTO&AUTO DIFRNTL WBC CT THORAX [address]61 [place] FIL[place], 8 [facility] [place] W/[place] [address] ALEXANDRA MORRIS ABDOMEN 8 [facility] W/CONTRAS INC INC T MATERIAL CT PELVIS 89129 [place] FIL[place], 8 [facility] [place] W/CONTRAS IMAGING T ASSOCIATE MATERIAL S 3D 44297 ALEXANDRA MORRIS RENDERING 8 [facility] INC INC W/INTERP& POSTPROC DIFF WORK STATION COLLECTIO 41184 COMBINED COMBINED N VENOUS 8 PHYSICIAN PHYSICIAN BLOOD S LAB S LAB VENIPUNCT URE BLOOD 48919 COMBINED COMBINED COUNT 8 PHYSICIAN PHYSICIAN COMPLETE S LAB S LAB AUTO&AUTO DIFRNTL WBC COMPREHEN 09473 COMBINED COMBINED SIVE 8 PHYSICIAN PHYSICIAN METABOLIC S LAB S LAB PANEL MRI BRAIN 46913 FILIPPO BARKLEY, BRAIN 8 GUANACO GUANACO STEM W/O W/CONTRAS T MATERIAL CT THORAX 50354 ALEXANDRA MORRIS 8 [facility] W/[place] [address] [place] HERB, ABDOMEN 8 [facility] P W/CONTRAS IMAGING T ASSOCIATE MATERIAL S CREATININ 39090 ALEXANDRA De Luna BLOOD 8 [facility] [place] [address] ALEXANDRA MORRIS UREA 8 [facility] NITROGEN INC INC QUANTITAT KONSTANTIN 3D 38475 ALEXANDRAREHANA MORRIS RENDERING 8 [facility] INC INC W/INTERP& POSTPROC DIFF WORK STATION IV NFUS 64764 ALEXANDRA MORRIS THER 8 [facility] PROPH/[place] [address] ALEXANDRA MORRIS THER 8 [facility] PROPH/DX INC INC 1ST >1 HR ENTRAL F B4150 [facility] NUTRITION 8 [employer] ALLY CMPL W/INTACT NUTRIENTS ENTERAL B4034 [facility] FEEDING 8 [employer] [employer] SUPPLY KIT; SYRINGE FED PER DAY ENTERAL B4034 [facility] FEEDING 8 [employer] SUPPLY KIT; SYRINGE FED PER DAY CT THORAX 72139 ALEXANDRA MORRIS W/O 8 [facility] [address] ALEXANDRA MORRIS ABDOMEN 8 [facility] W/O INC INC CONTRAST MATERIAL 3D 20615 ALEXANDRA MORRIS RENDERING 8 [facility] INC INC W/INTERP& POSTPROC DIFF WORK STATION CT PELVIS 38115 ALEXANDRA ALEXANDRA W/O 8 [facility] CONTRAST INC INC MATERIAL ENTERAL B4034 [facility] FEEDING 8 [employer] PART[employer] SUPPLY KIT; SYRINGE FED PER DAY ENTRAL F B4150 [facility] NUTRITION 8 [employer] ALLY CMPL W/INTACT NUTRIENTS ENTERAL B4034 [facility] FEEDING 8 [employer] PART[employer] SUPPLY KIT; SYRINGE FED PER DAY HOSPITAL [address] [place], DISCHARGE 8 [facility] [facility] INTER[facility] MANAG[facility]EN MED T 30 MIN/< SBSQ [address], CARE/DAY INTERNAL ERLIN F 25 MED MINUTES SBSQ [address], CARE/DAY INTERNAL ERLIN F 25 MED [place]UT[place] [address] CAROLINA ESTEVEZ, COMPL 8 [facility] P AQT ABD IMAGING W/S/E/D ASSOCIATE VIEWS 1 S VIEW CH INITIAL 32596 [facility] 8 [place], CARE/DAY INTERNAL ERLIN F 50 MED MINUTES RADIOLOGI 98766 Daisy JOHN EXAM 8 MEDICAL [facility] CHEST 2 IMAGING VIEWS ASSOCIATE FRONTAL&L S ATERAL COLLECTIO 25941 ALEXANDRA MORRIS N VENOUS 8 [facility] BLOOD INC INC VENIPUNCT URE BLOOD 78970 ALEXANDRA MORRIS COUNT 8 [facility] COMPLETE INC INC AUTO&AUTO DIFRNTL WBC THER 22807 ALEXANDRA MORRIS PROPH/DX 8 [facility] NJX EA INC INC SEQL IV PUSH SBST/DRUG BASIC 72169 ALEXANDRA MORRIS METABOLIC 8 [facility] [place] [address] ALEXANDRA MORRIS THER 8 [facility] PROPH/DX INC INC 1ST >1 HR [place] NFS 79385 ALEXANDRA MORRIS THER 8 [facility] PROPH/DX INC INC 1ST >1 HR INJECTION J9060 ALEXANDRA MORRIS 8 [facility] CISPLATIN INC INC POWDER OR SOLUTION 10 MG CHEMOTX 83145 ALEXANDRA MORRIS ADMN IV 8 [facility] NFS TQ UP INC INC 1 HR 1/ SBST/DRUG IV NFUS 98036 ALEXANDRA [facility] PROPH/DX INC INC EA HR INJECTION J9178 [facility] EPIRUBICI INC INC N HCL 2 MG CHEMOTX 66138 ALEXANDRA [facility]IS ADMN IV 8 [facility] PUSH TQ INC INC 1/ SBST/DRUG AMB INFUS [id number] [facility] PUMP 8 PARTNERS PARTNERS 1/MX CHANNL W/ADMN EQP WORN BY PT SUPPLIES [id number] [facility] FOR MAINT 8 PARTNERS PARTNERS NON-INS RX INFUS CATH PER WK INFUS SPL A4222 [facility] EXT RX 8 PARTNERS PARTNERS INFUS PUMP CASSETTE/ [place] NFS 01449 A[facility]ANDR[facility] PROPH/DX INC INC 1ST >1 HR CHEMOTX 00548 [facility]ANDRA [facility]MN [facility] NFS TQ UP INC INC 1 HR 1/ SBST/DRUG INJECTION J9060 [facility] CISPLATIN INC INC POWDER OR SOLUTION 10 MG IV NFUS 37064 A[facility]ANDRA [facility]ER 8 [facility] PROPH/DX INC INC EA HR INJECTION J9178 [facility] EPIRUBICI INC INC N HCL 2 MG CHEMOTX 59126 ALEXANDRA [facility] ADMN IV 8 [facility] NFS TQ EA INC INC SEQL NFS TO 1 HR AMB INFUS E0781 [facility] PUMP 8 PARTNERS PARTNERS 1/MX CHANNL W/ADMN EQP WORN BY PT INFUS SPL A4222 [facility] EXT RX 8 PARTNERS PARTNERS INFUS PUMP CASSETTE/ BAG SUPPLIES A4221 [facility] FOR MAINT 8 PARTNERS PARTNERS NON-INS RX INFUS CATH PER WK INJECTION J9190 [facility] 8 PARTNERS PARTNERS FLUOROURA CIL 500 MG CATHETER C1751 [facility] 8 Y Y [facility] CNTRLLY/M IDLN ENTERAL B4034 [facility] FEEDING 8 PARTNERS PARTNERS SUPPLY KIT; SYRINGE FED PER DAY RADIOLOGI 49399 [facility] C 8 [facility] S[facility] VIEW FRONTAL RPLCMT 83986 [facility] COMPL 8 Y Y PRPH CVC [facility] W/O SUBQ PORT/NEUROSURGICAL NURSE PRACTITIONER NONINVASI 39154 [facility] VE 8 Y Y EAR/PULSE [facility] OXIMETRY SINGLE DETER INJECTION J2997 [facility] 8 Y Y ALTEPLASE [facility] NT 1 MG INJECTION J9060 [facility] CISPLATIN INC INC POWDER OR SOLUTION 10 MG CHEMOTX 86427 ALEXANDRA [facility]RIS ADMN IV 8 [facility] NFS TQ UP INC INC 1 HR 1/1ST SBST/DRUG INJECTION J9178 [facility] EPIRUBICI INC INC N HCL 2 MG CHEMOTHER 22287 ALEXANDRA ALEXANDRA APMolly ADMN 8 [facility] IV INC INC INFUSION TQ EA HR CHEMOTX 74107 ALEXANDRA [facility]IS ADMN IV 8 [facility] PUSH TQ INC INC EA SBST/DRUG ENTRAL F B4150 [facility] NUTRITION 8 PARTNERS PARTNERS ALLY CMPL W/INTACT NUTRIENTS CHEMOTX 53648 ALEXANDRA [facility]IS ADMN IV 8 [facility] PUSH TQ INC INC EA SBST/DRUG CHEMOTHER 33753 ALEXANDRA [facility]IS APMolly ADMN 8 [facility] IV INC INC INFUSION TQ EA HR INJECTION J9178 [facility] 8 [facility] EPIRUBICI INC INC N HCL 2 MG CHEMOTX 02847 ALEXANDRA [facility]IS ADMN IV 8 [facility] NFS TQ UP INC INC 1 HR SBST/DRUG INJECTION J9060 ALEXANDRAREHANA [facility] 8 [facility] CISPLATIN INC INC POWDER OR SOLUTION 10 MG INJECTION J9190 [facility] 8 PARTNERS PARTNERS FLUOROURA CIL 500 MG AMB INFUS E0781 [facility] PUMP 8 PARTNERS PARTNERS 1/MX CHANNL W/ADMN EQP WORN BY PT INFUS SPL A4222 [facility] EXT RX 8 PARTNERS PARTNERS INFUS PUMP CASSETTE/ BAG SUPPLIES A4221 [facility] FOR MAINT 8 PARTNERS PARTNERS NON-INS RX INFUS CATH PER WK GRANISETR Q0166 ALEXANDRA MORRIS ON HCL 1 8 [facility] MG ORL INC INC NOT >48 HR DOSE REGIMEN ENTERAL B4034 [facility] FEEDING 8 PARTNERS PARTNERS SUPPLY KIT; SYRINGE FED PER DAY ECHO 34479 ALEXANDRA [facility] TRANSTHOR 8 [facility] AC R-T 2D INC INC W/WO M-MODE REC COMP DOP 56965 ALEXANDRA [facility] ECHOCARD 8 [facility] COLOR INC INC FLOW VELOCITY MAPPING DOPPLER 82819 ALEXANDRA [facility] ECHOCARD 8 [facility] PULSE INC INC WAVE W/S[place] NFS [address]86 ALEXANDRA [facility]ER 8 [facility] PROPH/DX INC [place] 1ST >1 [place] [address] PATHOLOGY PATHOLOGY SURG 8 & & PATHOLOGY CYTOLOGY CYTOLOGY LAB LAB GROSS&JOSE CRUZ ROSCOPIC EXAM EGD 16672 [place] TRANSORAL 8 MEDICAL MEDICAL BIOPSY SERV SERV SINGLE/MU FOUNDATIO FOUNDATIO LTIPLE SPECIAL 23070 PATHOLOGY PATHOLOGY STAIN 8 & & GROUP 1 CYTOLOGY CYTOLOGY MICROORGA LAB LAB NISMS I&R SPCL STN 95153 PATHOLOGY PATHOLOGY 2 I&R 8 & & EXCPT CYTOLOGY CYTOLOGY MICROORG/ LAB LAB ENZYME/IM CYT ENTERAL B4034 [facility] FEEDING 8 [employer] SUPPLY KIT; SYRINGE FED PER DAY ENTRAL F B4150 [facility] NUTRITION 8 [employer] ALLY CMPL W/INTACT NUTRIENTS Encounters Encounter Start End Date Code Location Performer Type Date OFFICE 73317 DERMATOLO MUSIC OUTPATIEN 7 7 GY T VISIT CONSULTAN 15 TS PSC MINUTES OFFICE 55337 [place] ZAYNAB OUTPATIEN 7 7 [facility] MINUTES OFFICE 36740 FAUSTINO HARMON OUTPATIEN 6 6 ROCAEL ROCAEL T VISIT 15 MINUTES OFFICE 92030 DERMATOLO MUSIC OUTPATIEN 6 6 GY T VISIT CONSULTAN 15 TS PSC MINUTES OFFICE 93190 FAUSTINO HARMON OUTPATIEN 6 6 ROCAEL ROCAEL T VISIT 15 MINUTES OFFICE 87909 [place] ZAYNAB OUTPATIEN 6 6 [facility], 25 [facility] MINUTES OFFICE 54841 FAUSTINO HARMON OUTPATIEN 6 6 ROCAEL ROCAEL T NEW 30 MINUTES [facility] - 6 6 [facility] OUT[facility]IEN INC T OFFICE 77080 [place] WORTHY OUTPATIEN 6 6 [facility], 25 [facility] - 6 6 [facility] T [facility] - 6 6 [facility] OUTPATIEN INC T OFFICE 59378 DERMATOLO MUSIC ELIZABETH OUTPATIEN 6 6 GY T VISIT CONSULTAN 15 TS PSC [facility] - 6 6 [facility] OUTPATIEN INC T OFFICE 48671 FALLOLYA MAURICIO OUTPATIEN 6 6 RONI CHRISTIAN T NEW 30 MINUTES [facility] - 5 5 [facility] OUTPATIEN INC T OFFICE 72395 DERMATOLO MUSIC ELIZABETH OUTPATIEN 5 5 GY T NEW 10 CONSULTAN MINUTES TS PSC OFFICE 48891 [facility] BLANCA TOD OUTPATIEN 5 5 PHYSICIAN T VISIT S GROUP 10 MINUTES OFFICE 63826 [facility] BESSON OUTPATI[facility] 5 5 [facility] PATRICA T VISIT INTERNAL 15 MED MINUTES [facility] 5 [facility] 5 [facility] OUT[facility] INC T OFFICE 11376 [facility] BLANCA TOD OUTPATIEN 5 5 PHYSICIAN T NEW 30 S GROUP MINUTES OFFICE 00598 [facility] BESSON OUTPATIEN 5 5 [facility] PATRICA T VISIT INTERNAL 15 MED MINUTES [facility] - 5 5 [facility] OUTPATIEN INC T OFFICE 97104 [facility] BESSON OUTPATIEN 5 5 [facility] PATRICA T VISIT INTERNAL 25 MED MINUTES [facility] - 5 5 [facility] INC [facility] 5 5 [facility] OUTPATIEN INC T OFFICE 42161 [facility] USERY AND OUTPATIEN 5 5 VALLEY T VISIT INTERNAL 25 MED MINUTES [facility] - 5 5 [facility] OUTPATIEN INC T OFFICE 88701 ZAYNAB WORTHY OUTPATIEN 4 4 IAN SOSA T VISIT 25 MINUTES [facility] - 4 4 [facility]PATIEN INC [facility] - 4 4 [facility] OUTPATIEN INC T OFFICE 20788 ZAYNAB WORTHY OUTPATIEN 4 4 IAN SOSA T VISIT 25 MINUTES [facility] - 4 4 [facility]PATIEN INC [facility] - 4 4 [facility] OUTPATIEN [facility] - OTHER 4 4 [facility] Emergency HENRY Richmond MD (ER) 3 08:46 3 09:34 [facility] EMERGENCY 97762 LEATHA ALBRIGHT 3 3 EMERGENCY DEPARTMEN SERVICES T VISIT HIGH/URGE NT SEVERITY [facility] - 3 3 [facility] OUTPATIEN [facility] EMERGENCY 31782 [facility]DR[facility] 3 3 [facility] DEPARTMEN INC T VISIT LOW/MODER SEVERITY OFFICE 17510 WORTHY ZAYNAB OUTPATIEN 3 3 IAN SOSA T VISIT 15 MINUTES OFFICE 05451 ALEXANDRA MILTONIMONE OUTPATIEN 3 3 [facility] T VISIT HOSPITAL 10 P MINUTES [facility] - 3 3 [facility] OUTPATIEN INC OFFICE 37243 [facility] 3 3 [facility] T VISIT INTERNAL 15 MED MINUTES OFFICE 15855 [facility] MCKEMIE OUTPATIEN 3 3 [facility] T VISIT INTERNAL 15 MED MINUTES OFFICE 47798 [facility] OUTPATIEN 3 3 [facility] T VISIT INTERNAL 15 MED MINUTES OFFICE 36428 ZAYNAB WORTHY OUTPATIEN 3 3 IAN SOSA T VISIT 25 MINUTES [facility] - 3 3 [facility]PATIEN INC T [facility] - 3 3 [facility] OUTPATIEN INC T OFFICE 66993 [facility] MCKEMIE OUTPATIEN 3 3 [facility] JOSEPH T VISIT INTERNAL 15 MED MINUTES OFFICE 06410 [facility] MCKEMIE OUTPATIEN 3 3 WILLIAMS JOSEPH T VISIT INTERNAL 15 MED MINUTES [facility] - 2 2 [facility] OUTPATIEN INC T OFFICE 18082 [facility] MCKEMIE OUTPATIEN 2 2 WILLI[facility] JOSEPH T VISIT INTERNAL 15 MED MINUTES OFFICE 84820 [facility] MCKEMIE OUTPATIEN 2 2 WILLIAMS JOSEPH T VISIT INTERNAL 15 MED MINUTES [facility] - 2 2 [facility]EN INC T [facility] - 2 2 [facility] T [facility] - 2 2 [facility] OUTPATIEN INC T OFFICE 29985 [facility] MCKEMIE OUTPATIEN 2 2 WILLI[facility] JOSEPH T VISIT INTERNAL 15 MED MINUTES OFFICE 94806 [facility] MCKEMIE OUTPATIEN 2 2 WILLI[facility] JOSEPH T VISIT INTERNAL 15 MED MINUTES [facility] - 2 2 [facility]EN INC T [facility] - 2 2 [facility] OUTPATIEN INC T OFFICE 05240 [facility] MCKEMIE OUTPATIEN 2 2 [facility] JOSEPH T VISIT INTERNAL 10 MED MINUTES [facility] - 2 2 [facility] OUTPATIEN INC T OFFICE 22416 [facility] MCKEMIE OUTPATIEN 2 2 WILLI[facility] JOSEPH T VISIT INTERNAL 15 MED MINUTES OFFICE 11211 [facility] MCKEMIE OUTPATIEN 2 2 WILLIAMS JOSEPH T VISIT INTERNAL 15 MED MINUTES OFFICE 49755 ZAYNAB WORTHY OUTPATIEN 2 2 IAN SOSA T VISIT 25 MINUTES OFFICE 09872 [facility] MCKEMIE OUTPATIEN 2 2 [facility] JOSEPH T VISIT INTERNAL 15 MED MINUTES [facility] - 2 2 [facility] OUTPATIEN INC T OFFICE 20462 A[facility]DR[facility] DONAHUE QAI OUTPATIEN 2 2 [facility] VISIT HOSP[facility] 25 P MINUTES [facility] - 2 2 [facility]PATIEN [facility] - 2 2 [facility] OUTPATIEN INC [facility] - 2 2 [facility]PATIEN INC [facility] - 1 1 [facility]PAT[facility] - 1 1 [facility] - 1 1 [facility] OUTPATIEN INC T OFFICE 93766 ZAYNAB WORTHY OUTPATIEN 1 1 IAN SOSA T VISIT 25 MINUTES [facility]OSP[facility] - 1 1 [facility] OUTPATIEN INC T OFFICE 04300 ALEXANDRA DONAHUE QAI OUTPATIEN 1 1 [facility] VIS[facility] 25 P MINUTES [facility] - 1 1 [facility]PATIEN INC [facility] - 1 1 [facility]PATIEN INC [facility] - 1 1 [facility] OUTPATIEN INC T OFFICE 38680 A[facility]DRA DONAHUE QAI OUTPATIEN 1 1 [facility] 25 P MINUTES [facility] - 1 1 [facility] OUTPATIEN INC T OFFICE 18514 [facility] MCKEMIE OUTPATIEN 1 1 [facility] JOSEPH T VISIT INTERNAL 15 MED MINUTES OFFICE 92753 [facility] MCKEMIE OUTPATIEN 1 1 [facility] JOSEPH T VISIT INTERNAL 15 MED MINUTES OFFICE 78922 [facility] MCKEMIE OUTPATIEN 1 1 [facility] JOSEPH T VISIT INTERNAL 15 MED MINUTES [facility] - 0 0 [facility] OUTPATIEN INC T OFFICE 18719 VOODOOShivani MORRISSEY OUTPATIEN 0 0 CARDIOTHO T VISIT RACIC 10 SURGI MINUTES [facility] - 0 0 [facility] OUTPATIEN INC T OFFICE 64475 ZAYNAB WORTHY OUTPATIEN 0 0 IAN SOSA T VISIT 40 MINUTES [facility] - 0 0 [facility] 0 [facility] - 0 0 [facility] OUTPATIEN INC T OFFICE 44041 MARTHA SOTO OUTPATIEN 0 0 CARDIOTHO YOUNG Pina T VISIT RACIC 15 SURGICAL MINUTES GROUP OFFICE 36588 A[facility]DR[facility] DELEON OUTPATIEN 0 0 CECELIA Stone [facility] 15 PROF SERV MINUTES [facility] 0 0 [facility] 0 0 [facility]PAT[facility] INC T OFFICE 54432 [facility] MCKEMIE OUTPATIEN 9 9 [facility] GONZALEZ T VISIT INTERNAL ERLIN F 15 MED MINUTES [facility] - 9 9 [facility] - 9 9 [facility] OUTPATIEN INC T OFFICE 68463 [facility] MCKEMIE OUTPATIEN 9 9 Shivani KRAMER JR VISIT INTERNAL ERLIN F 15 MED MINUTES OFFICE 73907 [place], OUTPATIEN 9 9 BEN Parrish NEW 10 CLINIC H MINUTES [facility] OFFICE 04851 [facility] MCKEMIE OUTPATIEN 9 9 Shivani KRAMER JR VISIT INTERNAL ERLIN F 15 MED MINUTES OFFICE 81211 [facility] MCKEMIE OUTPATIEN 9 9 Shivani KRAMER JR VISIT INTERNAL ERLIN F 15 MED MINUTES [facility] - 9 9 [facility] OUTPAT[facility]EN INC T OFFICE 82835 [facility] MCKEMIE OUTPATIEN 9 9 Shivani KRAMER JR VISIT INTERNAL ERLIN F 15 MED MINUTES [facility] - 9 9 [facility] OUTPATIEN INC T OFFICE 06125 [facility] MCKEMIE OUTPATIEN 9 9 Shivani KRAMER JR VISIT INTERNAL ERLIN F 15 MED MINUTES OFFICE 54940 [facility] MCKEMIE OUTPATIEN 9 9 Shivani KRAMER JR VISIT INTERNAL ERLIN F 15 MED MINUTES OFFICE 21387 [facility] MCKEMIE OUTPATIEN 9 9 Shivani KRAMER JR VISIT INTERNAL ERLIN F 15 MED MINUTES OFFICE 75271 [facility] MCKEMIE OUTPATIEN 9 9 Shivani KRAMER JR VISIT INTERNAL ERLIN F 15 MED MINUTES [facility] - 9 9 [facility] OUTPATIEN INC T OFFICE 75282 [facility] OUTPATIEN 9 9 [facility] T VISIT INC 25 MINUTES [facility] - 9 9 [facility] OUTPATIEN INC T OFFICE 65480 ZAYNAB WORTHY, OUTPATIEN 9 9 ALEM ALEM Parrish VISIT 40 MINUTES OFFICE 63229 [facility] MCKEMIE OUTPATIEN 9 9 Shivani KRAMER JR VISIT INTERNAL ERLIN F 15 MED MINUTES OFFICE 18735 SCHULSTAD SCHULSTAD OUTPATIEN 9 9 , BRENDAN CARDONA T VISIT 15 MINUTES [facility] - 9 9 [facility] T [facility] - 9 9 [facility]PAT[facility] INC T OFFICE 26719 [facility] MCKEMIE OUTPATIEN 9 9 Shivani KRAMER JR VISIT INTERNAL ERLIN F 15 MED MINUTES OFFICE 66640 CARDIOVAS KELVIN, OUTPATIEN 8 8 FOREIGN & CAROLE T VISIT THORACIC 15 ASSOC PSC MINUTES OFFICE 37708 [facility] MCKEMIE OUTPATIEN 8 8 Shivani KRAMER JR VISIT INTERNAL ERLIN F 15 MED MINUTES [facility] - 8 8 [facility] OUTPAT[facility]EN INC T OFFICE 29886 [facility] MCKEMIE OUTPATIEN 8 8 Shivani KRAMER JR VISIT INTERNAL ERLIN F 15 MED MINUTES OFFICE 39395 A[facility]ANDRA BROWNE OUTPATIASHLEY 8 8 [facility] JAMES Parrish VISIT HOSPITAL 15 PROF SERV MINUTES [facility] - 8 8 [facility] OUTPATIEN INC [facility] - 8 8 [facility] OUTPATIEN INC T OFFICE 35243 [facility] MCKEMIE OUTPATIEN 8 8 Shivani KRAMRE JR VISIT INTERNAL ERLIN F 15 MED MINUTES OFFICE 96483 CARDIOVAS KELVIN, OUTPATIEN 8 8 FOREIGN & CAROLE T VISIT THORACIC 15 ASSOC PSC MINUTES [facility] - 8 8 [facility] OUTPATIEN INC T OFFICE 40495 RICK QUINTERO 8 8 [facility] 15 PROF SERV MINUTES EMERGENCY 57289 A[facility]DRA JEFF, 8 8 [facility] VISIT PROF SERV MODERATE SEVERITY EMERGENCY 02854 [facility] JEFF DEPT 8 8 [facility] HIGH PROF SERV SEVERITY& THREAT FUNCJ EMERGENCY 32076 [facility] 8 8 [facility] T VISIT MODERATE SEVERITY [facility] - 8 8 [facility] OUTPATIEN [facility] - 8 8 [facility] - 8 8 [facility] 30801 [facility] 8 8 WILLIAMS GONZALEZ, T VISIT INTERNAL ERLIN F 15 MED MINUTES OFFICE 54003 CARDIOVAS CARDIOVAS [facility] 8 8 ULAR & ULAR & T VISIT THORACIC THORACIC 15 ASSOC PSC ASSOC PSC [facility] UNIVERSIT - 8 8 Y [facility] T EMERGENC[facility] [address] [facility] T VISIT MODERATE SEVERITY EMERGENCY [address] [facility] T VISIT LOW/MODER SEVERITY HOSPITAL UNIVERSIT - 8 8 Y [facility] - 8 8 [facility] OFF[facility] 87076 [facility] FELICIANO OUTPATIEN 8 8 WILILAMS Rodriguez T VISIT INTERNAL 15 MED MINUTES [facility] - 8 8 [facility] OUTPATIEN [facility] - 8 8 [facility] 8 8 [facility] T EMERGENCY 98828 [facility]DR[facility] 8 8 [facility] T VISIT LOW/MODER SEVERITY OFFICE 84296 [facility]NIE Rodriguez T VISIT INTERNAL 15 MED MINUTES [facility] - 8 8 [facility]PAT[facility]EN [facility] T OFFICE 53643 [facility] ACE OUTPATIASHLEY 8 8 Shivani KRAMER JR VISIT INTERNAL ERLIN [place] 15 MED MINUTES
--- OUTSIDE RECORDS SUMMARY | 2017-03-18 17:41 | External Medical Summary Rpt ---
Author Author , JIM Organization JIM Address Unknown Phone [email or web address] Care Team Providers Care Director Of Healthcare Systems Name Role Phone FAUSTINO COTE, FAUSTINO Unavailable Unavailable ROCAEL ARNDAVID ROCAEL, ARNOLD Unavailable Unavailable ROCAEL AYARAM, RAGHU, [...] & Unavailable Unavailable DUBILIER, CHIPPS MATT & YOUNG LYNN, Unavailable Unavailable YOUNG SOTO [facility] Unavailable Unavailable [place], [facility] Unavailable Unavailable [facility], [facility] Unavailable Unavailable LAB, [facility] FILIPPO PIERRE, Unavailable Unavailable FILIPPO PIERRE GUANACO BARKLEY, Unavailable Unavailable GUA[facility]CO [facility] Unavailable [facility]available [facility], [facility] CECILIA PHI, Unavailable Unavailable CECILIA PHI KELVIN, CAROLE, KELVIN, Unavailable Unavailable CAROLE FALLIS RONI, FALLIS Unavailable Unavailable 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 & Unavailable Unavailable ORTHOTI, 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 & ORTHOTI 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 Un[facility], [facility] Un[facility] Unavailable Unavailable HOLD[facility], [facility] Unavailable Unavailable HOLDINGS, [facility] Unavailable Unavailable INTERNAL MED, [facility] CALABRESE ROCAEL, CALABRESE Unavailable Unavailable ROCAEL [facility] Unavailable Unavailable SERVICES, [facility] ZAYNAB WORTHY Unavailable Unavailable ZAYNAB SOSA, Unavailable Unavailable ZAYNAB SOSA, Unavailable Unavailable WORTHYALEM STEVENSON, Unavailable Unavailable ALEM WORTHY JR, Unavailable Unavailable MCKEMIE OPAL ABILIOMIE , ERLIN Unavailable Unavailable F, ACE GONZALEZ, ERLIN F RUTHY ESTEVEZ, Unavailable Unavailable RUTHY ESTEVEZ [...] PATRICK BLANCA TOD, BLANCA TOD Unavailable Unavailable SAMIR WILLISL, Unavailable Unavailable BRENDAN WILLIS, THANG Parrish, RANDEE, Unavailable Unavailable THANG Parrish [facility] Unavailable Unavailable EQUIPME, [facility] Unavailable Unavailable [facility], [facility] ANNKARIME MCLAUGHLIN, Unavailable Unavailable ANN, KARIME H [facility], Unavailable Unavailable [facility] USERY AND, USERY AND Unavailable Unavailable KEYUR WRIGHT Unavailable Unavailable Purpose Continuity of Care Document - 06-08-2007 through 2016 Problems Code Diagnosis DOS Provider Status [id number] 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 BILATERAL [id number] VITREOUS 08-27-2016 [facility], N RIGHT EYE P[facility] [id number] VITREOUS 08-27-2016 [facility], [facility] LEFT EYE [facility] J069 ACUTE UPPER 06-02-2016 FAUSTINO COTE RESPIRATORY INFECTION UNSPECIFIED R77099 PAIN IN 04-27-2016 [facility] RIGHT LEG HOME MEDICAL EQUIPME [id number] PAIN IN 04-27-2016 [facility] LEFT LEG HOME MEDICAL EQUIPME [id number] COMPLETE 04-27-2016 [facility] TRAUM AMP HOME BETWN KNEE MEDICAL ANKLE LT EQUIPME LEG SEQ Z9710 PRESENCE 04-27-2016 [facility] ARTIFICIAL HOME LIMB MEDICAL COMPLETE EQUIPME PARTIAL UNS M150 PRIMARY 11-15-2015 FAUSTINO COTE GENERALIZED OSTEOARTHRI TIS M1611 UNILATERAL 10-30-2015 [facility] TIS RIGHT HIP T40735 PAIN IN 10-30-2015 [facility] H3531 NONEXUDATIV 08-22-2015 [facility], AGE-RELATED P.S[facility]. MACULAR DEGENERATIO N R634 ABNORMAL 07-27-2015 [facility] R700 ELEVATED 07-27-2015 [facility]OC[facility]TE [facility] SEDIMENTATI ON RATE R937 ABN FIND ON 07-27-2015 [facility] OTH PART IMAGING ASS MUSCULOSKEL ETAL SYS Z8501 PERSONAL 07-27-2015 [facility] HISTORY [facility] MALIGNANT IMAGING ASS NEOPLASM OF ESOPHAGUS K449 DIAPHRAGMAT 06-26-2015 [place] IC HERNIA MEDICAL W/O IMAGING ASS OBSTRUCTION OR GANGRENE Z122 ENCOUNTER 06-26-2015 [place] SCREENING [facility]ICAL MALIG IMAGING ASS NEOPLASM RESPIR ORGANS L0889 OTH SPEC 06-14-2015 DERMATOLOGY LOCAL INFECTIONS CON[facility]ULTANTS THE SKIN & PSC SUBQ TISSUE L219 SEBORRHEIC 06-14-2015 DERMATOLOGY DERMATITIS UNSPECIFIED CONSULTANTS PSC 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 UNSPECIFIED [id number] UNS OPEN 06-13-2015 [facility] WOUND UNS [facility] TOES W/O INC DAMAGE NAIL INITIAL B078 OTHER VIRAL 06-12-2015 [facility] RONI WARTS I890 LYMPHEDEMA 06-12-2015 F[facility] RONI NOT ELSEWHERE CLASSIFIED M2570 OSTEOPHYTE 06-12-2015 [facility] RONI UNSPECIFIED JOINT W26435 PAIN IN 06-12-2015 [facility] RONI LEFT FOOT K5900 CONSTIPATIO 05-17-2015 COM[facility]ED N PHYSICIANS UNSPECIFIED LA S38026 PRIMARY 05-17-2015 [place] OSTEOARTHRI MEDICAL TIS LEFT IMAGING ASS ANKLE AND FOOT U84955 UNSPECIFIED 05-17-2015 [facility] ACQUIRED [facility] DEFORMITY INC OF LEFT LOWER LEG M7732 CALCANEAL 05-17-2015 [facility] LEFT MEDICAL FOOT IMAGING ASS [id number] COMPLETE 04-30-2015 [facility] TRAUM AMP ARTIFICIAL BETWN KNEE LIMB C ANKLE UNS LEG INIT Z09 ENC F/U 03-22-2015 DERMATOLOGY EXAM AFTR CMPL TX OTH CONSULTANTS THAN ELLIE PSC NEOPLSM 86027 UNS 02-14-2015 [facility] GASTRITIS&G PHYSICIANS ASTRODUODIT GROUP IS W/O MENTION HEMORR 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 UNSPECIFIED MED SITE 94868 MIGRAINE 02-08-2015 [facility] UNSP W/O VALLEY INTRACT W/O INTERNAL STATUS MED MIGRAINOSUS 90539 REFLUX 02-08-2015 [facility] ESOPHAGITIS VALLEY INTERNAL MED 45924 UNSPECIFIED 02-08-2015 [facility] ARTHROPATHY INTERNAL MULTIPLE MED SITES 22557 OTHER 02-08-2015 [facility] ABNORMAL BRONSON GLUCOSE INTERNAL MED 2859 UNSPECIFIED 02-02-2015 [facility] ANEMIA PHYSICIANS GROUP 85357 OTHER 02-02-2015 [facility] ESOPHAGITIS MATT & DUBILIER 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 34967 OTHER SPEC 02-02-2015 [facility] GASTRITIS MATT & WITHOUT DUBILIER MENTION HEMORRHAGE 5533 DIAPHRAGMAT 02-02-2015 [facility] CONSTANTINE W/O PHYSICIANS MENTION GROUP OBSTRUCTION /GANGREN V1003 PERSONAL 02-02-2015 [facility] HISTORY PHYSICIANS MALIGNANT GROUP NEOPLASM ESOPHAGUS 2858 OTHER 01-22-2015 [facility] SPECIFIED PHYSICIANS ANEMIAS GROUP 2809 UNSPECIFIED 01-16-2015 [facility] IRON VALLEY DEFICIENCY INTERNAL ANEMIA MED 30666 ESOPHAGEAL 01-16-2015 [facility] REFLUX VALLEY INTERNAL MED 7248 OTHER 01-16-2015 [facility] SYMPTOMS VALLEY REFERABLE INTERNAL TO BACK MED 86360 DIAB W/O 12-29-2014 [facility] COMP TYPE PHYSICIANS [...] ARTIFICIAL BELW KNEE LIMB C W/O COMP 79605 PAIN IN 09-20-2014 [facility] JOINT, [facility] LOWER LEG INC 43778 OTHER LATE 09-20-2014 [facility] AMPUTATION [facility] STUMP INC COMPLICATIO N NEC 40149 NONEXUDATIV 03-15-2014 [facility] E SENILE JAM MACULAR DEGENERATIO N RETINA 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 7242 LUMBAGO 11-12-2013 [facility] 7243 SCIATICA 11-12-2013 [facility] INC V5869 LONG-TERM 09-12-2013 [facility] (CURRENT) [facility] USE OF INC OTHER MEDICATIONS 4293 CARDIOMEGAL 08-25-2013 [place] Y [facility]ICAL [facility] V6759 OTHER 08-25-2013 [place] FOLLOW-UP MEDICAL EXAMINATION IMAGING ASS OTHER V676 COMBINED 08-25-2013 [place] TREATMENT MEDICAL FOLLOW-UP IMAGING ASS EXAMINATION V711 OBSERVATION 08-25-2013 [facility] FOR [facility] SUSPECTED INC MALIGNANT NEOPLASM 4619 ACUTE 04-17-2013 [facility], [facility]GENCY UNSPECIFIED SERVICES 21474 OTHER 04-17-2013 [facility] DISEASES OF EMERGENCY NASAL SERVICES CAVITY AND SINUSES 7291 UNSPECIFIED 04-17-2013 [facility] MYALGIA [facility] MYOSITIS 7862 COUGH 04-17-2013 [facility] V148 PERSONAL 04-17-2013 [facility] HISTORY [facility] ALLERGY OTH INC SPEC MEDICINAL AGTS 61495 NUCLEAR 03-16-2013 [facility] SCLEROSIS JAM 6929 CONTACT 12-03-2012 [facility] DERMATITIS& VALLEY OTHER INTERNAL ECZEMA DUE MED UNSPEC CAUSE V103 PERSONAL 09-17-2012 [place] HISTORY OF MEDICAL MALIGNANT IMAGING ASS NEOPLASM OF BREAST V8741 PERSONAL 09-17-2012 [place] HISTORY OF MEDICAL ANTINEOPLAS IMAGING ASS TIC [...] HOSP ESOPHAGUS INC 5920 CALCULUS OF 02-25-2012 [place] [facility] 04102 DEHYDRATION 11-21-2011 [facility] BRONSON INTERNAL MED 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 4778 ALLERGIC 09-05-2011 [facility] RHINITIS VALLEY DUE TO INTERNAL OTHER MED ALLERGEN 05297 UNSPECIFIED 09-01-2011 [place] [facility] ESOPHAGITIS FOUNDAT[facility] 50390 ACUTE 09-01-2011 PATHOLOGY & GASTRITIS CYTOLOGY WITHOUT LAB MENTION OF HEMORRHAGE 90624 ATROPHIC 09-01-2011 PATHOLOGY & GASTRITIS CYTOLOGY WITHOUT LAB MENTION OF HEMORRHAGE 63336 OTHER 08-13-2011 [place] DISEASES OF MEDICAL LUNG NOT IMAGING ASS ELSEWHERE CLASSIFIED 27297 PAIN IN 05-23-2011 [place] JOINT MEDICAL PELVIC IMAGING ASS REGION AND THIGH 22112 UNSPECIFIED 05-23-2011 [place] [facility] OSTEOPOROSI IMAGING ASS S 7937 NONSPC ABN 05-23-2011 [place] FINDNG RAD MEDICAL & OTH EXM IMAGING ASS MUSCULSKELT L SYS 89140 DYSPHAGIA 05-19-2011 [place] [facility] UNSPECIFIED SERV FOUNDATIO 18885 ACUTE 09-02-2010 PATHOLOGY & ESOPHAGITIS CYTOLOGY LAB 27939 ULCER OF 09-02-2010 PATHOLOGY & ESOPHAGUS CYTOLOGY WITHOUT LAB BLEEDING 48540 ULCER OF 09-02-2010 [place] [facility] ESOPHAGUS SERV WITH FOUNDATIO BLEEDING 7934 NONSPECIFIC 09-02-2010 [place] [facility] ABN SERV FINDING RAD FOUNDATIO & OTH EXAM GI TRACT 21115 FLUSHING 08-29-2010 [place] [address] UNSPECIFIED 08-16-2010 [facility] ARTHROPATHY INTERNAL , LOWER LEG MED 7823 EDEMA 08-05-2010 [facility] INTERNAL MED 61623 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 INC 5693 HEMORRHAGE 03-18-2010 [facility] OF RECTUM [facility] AND ANUS INC 64168 OTHER 03-18-2010 [facility] SPECIFIED [facility] DISORDER OF INC INTESTINES 5781 BLOOD IN 03-18-2010 [place] [facility] STO[place] SERV [facility] 85287 UNSPECIFIED 03-06-2010 [place] [address] VITREOUS 03-06-2010 [facility] DEGENERATIO JAM N V551 ATTENTION 12-27-2009 [facility] TO [facility] GASTROSTOMY INC 15599 UNSPECIFIED 05-25-2009 [facility] VALLEY CONJUNCTIVI INTERNAL TIS MED 1508 MALIGNANT 04-17-2009 [facility] NEOPLASM [facility] OTHER SPEC INC PART ESOPHAGUS 44774 UNSPEC 04-09-2009 [facility] POLYARTHROP VALLEY ATHY/POLYAR INTERNAL THRIT MX MED SITES 7069 UNSPECIFIED 03-13-2009 NEW DISEASE OF [facility] PSC GLANDS V762 SCREENING 01-25-2009 PATHOLOGY & FOR CYTOLOGY MALIGNANT LAB NEOPLASM OF THE CERVIX 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 55176 OTHER 08-18-2008 [facility] MALAISE AND [facility] FATIGUE INC 46447 PERIPH 08-16-2008 [facility], CHORIORETIN ALEM AL SCARS 6829 CELLULITIS 06-26-2008 [facility] AND ABSCESS VALLEY OF INTERNAL UNSPECIFIED MED SITE 2110 BENIGN 05-22-2008 [place] [facility] NEOPLASM OF SERV ESOPHAGUS FOUNDATIO 7804 DIZZINESS 03-06-2008 [facility] AND VALLEY GIDDINESS INTERNAL MED 89602 OTHER 2007 [facility] DYSPHAGIA [facility] INC 2639 UNSPECIFIED 10-24-2007 [facility] PROTEIN-[place]IT[place] N 66845 MUCOSITIS 09-20-2007 [facility] DUE TO VALLEY ANTINEOPLAS INTERNAL TIC THERAPY MED 5990 URINARY 09-20-2007 [facility] TRACT VALLEY INFECTION INTERNAL SITE NOT MED SPECIFIED 66374 VOMITING 09-17-2007 [facility] 87997 SWELLING OF 09-13-2007 [facility] PROF SERV V5811 ENCOUNTER 09-08-2007 [facility] FOR [facility] ANTINEOPLAS INC TIC CHEMOTHERAP Y V153 PERS HX 07-26-2007 [facility] PRESENTING [facility] V5881 FITTING AND 07-26-2007 [facility] OF VASCULAR CATHETER 9961 MECH COMP 07-23-2007 [facility] VASCULAR DEVICE IMPLANT&GRA FT V441 GASTROSTOMY 07-23-2007 [facility] 08192 NAUSEA WITH 06-29-2007 [facility] VOMITING [facility] INC 49254 SHORTNESS 06-24-2007 [facility] OF BREATH [facility] INC 23888 MECHANICAL 06-19-2007 [facility] COMPLICATIO [facility] N OF INC GASTROSTOMY Immunization Name Date Rout CVX Reac Dose [...] 7 INTE YRS/ RNAL > IM MED Procedures Procedure DOS Code Location Performer Comment PROSTHETI L8420 CASUAL 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 DRAWING I&R 1ST DETERMINA 65110 [facility] DUENAS 7 EYE REFRACTIV CENTER, E STATE P.S.C. INJECTION J0696 [facility] HARMON 6 ROCAEL ROCAEL CEFTRIAXO NE SODIUM PER 250 MG HIGH K0004 [facility] MARTI STRENGTH 6 HOME HOME [facility] EQUIPME EQUIPME WHEELCHAI R HIGH K0004 MARTI MARTI STRENGTH 6 [facility] EQUIPME EQUIPME WHEELCHAI R DETERMINA 48938 [place] DUENAS 6 EYE REFRACTIV CENTER, E STATE [...] HT EQUIPME EQUIPME WHEELCHAI R RADEX HIP 95338 [place] FILIPPO 6 MEDICAL PIERRE UNILATERA IMAGING L WITH ASS PELVIS 2-3 VIEWS HIGH K0004 [facility]I MARTI STRENGTH 6 [facility] EQUIPME EQUIPME WHEELCHAI R HIGH K0004 M[facility]I MAYRELL STRENGTH 6 HOME HOME [facility] EQUIPME EQUIPME [place] R 25137 COMBINED COMBINED HYDROXY 6 PHYSICIAN PHYSICIAN INCLUDES Chase WELCH LA FRACTIONS IF PERFORMED HIGH K0004 [facility]I KIDD STRENGTH 6 HOME HOME [facility] EQUIPME EQUIPME WHEELCHAI R DETERMINA 34532 [facility] 6 EYE EYE REFRACTIV CENTER, CENTER, E STATE P.S.C. P.S.C. OPHTHALMO 34893 [place] ZAYNAB HANKS 6 EYE JAM EXTENDED CENTER, RETINAL P.S.C. DRAWING I&R 1ST HIGH K0004 MARTI KIDD STRENGTH 6 HOME [facility] EQUIPME EQUIPME [facility] R RADIOLOGI 49690 [place] NOBLE ALL C 6 MEDICAL EXAMINATI IMAGING ON PELVIS ASS 1/2 VIEWS BONE 01917 [place] DICKEY ALL &/JOINT 6 MEDICAL IMAGING IMAGING WHOLE ASS BODY HIGH K0004 M[facility]I KIDD STRENGTH 6 HOME [facility] EQUIPME [place] [address] [facility] M[facility] UREA 6 [facility] HOSP [facility] NITROGEN INC INC QUANTITAT KONSTANTIN CT THORAX 20179 [place] BEINE 6 MEDICAL PRAFUL W/CONTRAS IMAGING T ASS MATERIAL COLLECTIO 73003 [facility] M[facility] N VENOUS 6 MEM HOS[facility]OS[facility] BLOOD INC INC VENIPUNCT URE LOCM Q9967 A[facility] MORRIS 300-399 6 MEM HOSP [facility] MG/ML INC INC IODINE CONCENTRA TION PER ML CREATININ 52254 [facility] E BLOOD 6 [facility] HOS[facility]OS[facility] INC INC NON-INVAS 60230 [facility] KONSTANTIN 6 MEM HOS[facility] PHYSIOLOG INC INC IC STUDY EXTREMITY 3 LEVLS DESTRUCTI 83270 [facility] MAURICIO ON BENIGN 6 RONI CHRISTIAN LESIONS 15/> HIGH K0004 [facility]I KIDD STRENGTH 5 HOME HOME [facility] [place] [address] COMBINED COMBINED THYROID 5 PHYSICIAN PHYSICIAN STIMULATI [place] [address] COMBINED COMBINED BLOOD/URI 5 PHYSICIAN PHYSICIAN C ACID S LA S LA RADEX 94687 [place] DICKEY ALL FOOT 5 MEDICAL COMPLETE IMAGING MINIMUM 3 ASS VIEWS ANTINUCLE 70833 [facility] AR 5 SAI SAI ANTIBODIE HOLDINGS HOLDINGS S GLORY RHEUMATOI 29032 COMBINED COMBINED D FACTOR 5 PHYSICIAN PHYSICIAN QUALITATI S LA S LA VE SEDIMENTA 74939 COMBINED COMBINED TION RATE 5 PHYSICIAN PHYSICIAN RBC S LA S LA NON-AUTOM ATED SEAT E0156 [facility] KIDD ATTACHMEN 5 HOME HOME T [facility]ICAL EQUIPME EQUIPME WALKER E0143 MARTI KIDD FOLDING 5 HOME HOME WHEELED MEDICAL MEDICAL ADJUSTABL EQUIPME EQUIPME E/FIXED HEIGHT PROSTHETI L8420 BLUE BLUE C SOCK 5 GRASS GRASS MULTIPLE ARTIFICIA ARTIFICIA PLY BELOW L LIMB C L LIMB C KNEE EACH HIGH K0004 [facility] KIDD STRENGTH 5 HOME HOME [facility] EQUIPME EQUIPME WHEELCHAI R COMPREHEN 48289 [facility] SIVE 5 MEM HOS[facility] METABOLIC INC INC PANEL HEMOGLOBI 33807 [facility] MORRIS N 5 MEM HOS[facility]OS[facility] GLYCOSYLA INC INC BEAU A1C COLLECTIO 15898 [facility] N VENOUS 5 MEM HOS[facility]OS[facility] BLOOD INC INC VENIPUNCT URE BLOOD 14328 [facility] COUNT 5 [facility] COMPLETE INC INC AUTO&AUTO DIFRNTL WBC LIPID 83442 [facility] PANEL 5 [place] [address] [facility] CAL[facility]RESE SURG 5 MATT & ROCAEL PATHOLOGY DUBILIER GROSS&[place] [address] [facility] M[facility] INFUSION 5 [facility] THERAPY INC INC PROPHYLAX IS/DX EA HOUR EGD 28981 [facility] BLANCA TOD TRANSORAL 5 PHYSICIAN BIOPSY S GROUP SINGLE/[place] [address] [facility] M[facility]IS INFUSION 5 [facility] HOSP [facility] THERAPY/P INC INC ROPHYLAXI S /DX 1ST [place] [address] [place] [address] [facility] MORRIS [id number] 5 MEM [facility] [place] [address] [facility] M[facility] FOLIC 5 [facility] [place] [address] [facility] IRON 5 [facility] INC INC BLOOD 41720 [facility] OCCULT 5 [facility]OS[facility] PEROXIDAS INC INC E ACTV QUAL FECES 1-3 SPEC IRON 47588 [facility] BINDING 5 [facility] H[facility] CAPACITY INC INC COLLECTIO 86412 [facility] ALEXANDRA N VENOUS 5 MEM HOSP MEM HOS[facility] BLOOD INC INC VENIPUNCT URE BLOOD 40033 [facility] COUNT 5 [facility] COMPLETE INC INC AUTO&[place] [address] [facility] FERRITIN 5 [facility] H[facility]OS[facility] INC INC 25 24808 COMBINED COMBINED HYDROXY 5 PHYSICIAN PHYSICIAN INCLUDES S LA S LA FRACTIONS IF PERFORMED LIPID 12154 COMBINED COMBINED PANEL 5 PHYSICIAN PHYSICIAN S LA S LA BLOOD 40996 COMBINED COMBINED COUNT 5 PHYSICIAN PHYSICIAN COMPLETE S LA S LA AUTO&AUTO DIFRNTL WBC HEMOGLOBI 75190 COMBINED COMBINED N 5 PHYSICIAN PHYSICIAN GLYCOSYLA S LA S LA BEAU A1C COMPREHEN 16676 COMBINED COMBINED SIVE 5 PHYSICIAN PHYSICIAN METABOLIC S LA S LA PANEL PROSTHETI L8420 BLUE BLUE C SOCK 5 GRASS GRASS MULTIPLE ARTIFICIA ARTIFICIA PLY BELOW L LIMB C L LIMB C KNEE EACH PROSTHETI L8400 BLUE BLUE C SHEATH 5 GRASS GRASS BELOW ARTIFICIA ARTIFICIA KNEE EACH L LIMB C L LIMB C BLOOD 96750 [facility] COUNT 5 [facility]OS[facility] COMPLETE INC INC AUTO&AUTO DIFRNTL WBC LIPID 62755 A[facility] PANEL 5 [facility] INC INC 25 60126 [facility] HYDROXY 5 [facility] INCLUDES INC INC FRACTIONS IF PERFORMED COMPREHEN 46339 A[facility] SIVE 5 [facility] METABOLIC INC INC PANEL HEMOGLOBI 32076 A[facility] N 5 [facility] GLYCOSYLA INC INC BEAU A1C COLLECTIO 29949 A[facility] N VENOUS 5 [facility] BLOOD INC INC VENIPUNCT URE RADIOLOGI 60548 [facility] SARKAR 5 MEDICAL PRAFUL EXAMINATI IMAGING ON KNEE 3 ASS VIEWS COLLECTIO 50473 [facility] N VENOUS 5 [facility] BLOOD INC INC VENIPUNCT URE COMPREHEN 70505 A[facility] SIVE 5 [facility] METABOLIC INC INC PANEL LIPID 12382 [facility] PANEL 5 [facility] INC INC BLOOD 88760 [facility] COUNT 5 [facility] COMPLETE INC INC AUTO&AUTO DIFRNTL WBC OPHTHALMO 55767 Z[facility] WORTHY SCPY 4 JAM JAM EXTENDED RETINAL DRAWING I&R 1ST DETERMINA 99207 ZAYNAB WORTHY TION 4 JAM JAM REFRACTIV E STATE ADDITION L5668 BLUE BLUE LOW 4 GRASS GRASS EXTREM ARTIFICIA ARTIFICIA BELOW L LIMB C L LIMB C KNEE MOLDED DIST CUSHN ADD LW L5665 BLUE BLUE EXTRM 4 GRASS GRASS SOCKT ARTIFICIA ARTIFICIA INSRT L LIMB C L LIMB C MXIDUROME TER BELW KNEE LIPID 43676 [facility] PANEL 4 [facility] INC INC BLOOD 48816 A[facility]DR[facility] M[facility]RIS COUNT 4 [facility] COMPLETE INC INC AUTO&AUTO DIFRNTL WBC COMPREHEN 70042 A[facility] SIVE 4 [facility] METABOLIC INC INC PANEL COLLECTIO 27336 A[facility]ANDRA M[facility]RIS N VENOUS 4 [facility] BLOOD INC INC VENIPUNCT URE PROSTHETI L8420 BLUE BLUE C SOCK 4 GRASS GRASS MULTIPLE ARTIFICIA ARTIFICIA PLY BELOW L LIMB C L LIMB C KNEE EACH PROSTHETI L8400 BLUE BLUE C SHEATH 4 GRASS GRASS BELOW ARTIFICIA ARTIFICIA KNEE EACH L LIMB C L LIMB C RADEX 51346 [place] FILIPPO SPINE 4 MEDICAL PIERRE LUMBOSACR IMAGING AL ASS MINIMUM 4 VIEWS DETERMINA 09612 ZAYNAB WORTHY TION 4 IAN SOSA REFRACTIV E STATE OPHTHALMO 87819 ZAYNAB WORTHY SCPY 4 IAN SOSA EXTENDED RETINAL DRAWING I&[place] 1ST [place] [address] A[facility] INFUSION 4 [facility] THERAPY INC INC PROPHYLAX IS/DX EA HOUR ESOPHAGOG 00558 [place] GOMES MAHSA ASTRODUOD 4 MEDICAL ENOSCOPY [place] [address] A[facility]AN[facility] MORR[facility] INFUSION 4 [facility] THERAPY/P INC INC ROPHYLAXI S /DX [address] [place] [address] [facility] [place] WAYFILIPPO MAXILLOFA 4 MEDICAL PIERRE CIAL W/O IMAGING CONTRAST ASS MATERIAL CT SOFT 31928 [facility] [place] WAY[place]IPPO TISSUE 4 MEDICAL PIERRE NECK W/O IMAGING CONTRAST ASS MATERIAL COLLECTIO 82363 A[facility]DRA [facility] N VENOUS 4 [facility] BLOOD INC INC VENIPUNCT URE CT THORAX 03209 [place] FILIPPO W/O 4 MEDICAL [facility] CONTRAST IMAGING MATERIAL ASS 3D 24520 [facility] [place] RENDERING 4 MEDICAL PIERRE IMAGING W/INTERP& ASS POSTPROC DIFF WORK STATION COMPREHEN 23041 ALEXANDRA [facility] SIVE 4 [facility] METABOLIC INC INC PANEL BLOOD 99128 A[facility]ANDRA MORRIS COUNT 4 [facility] COMPLETE INC INC AUTO&AUTO DIFRNTL WBC LIPID 87944 [facility] PANEL 4 [facility] INC INC CREATININ 93496 A[facility]DR[facility] E BLOOD 4 [facility] INC INC COLLECTIO 48693 A[facility]DR[facility]RIS N VENOUS 4 [facility] [place] [address] A[facility]ANDRA MORRIS UREA 4 [facility] NITROGEN INC INC QUANTITAT KONSTANTIN CUL BACT 38806 A[facility]DR[facility] M[facility]RIS XCPT 3 [facility] URINE INC INC BLOOD/STO OL AEROBIC ISOL RADIOLOGI 13541 [place] BARKLEY C EXAM 3 MEDICAL PIERRE CHEST 2 IMAGING VIEWS ASS FRONTAL&L ATERAL IAADI 11726 ALEXANDR[facility] M[facility] INFLUENZA 3 [facility] B VIRUS INC INC IAADI 44419 [facility] INFFLUENZ 3 [facility] [place] [address] A[facility]ANDRA MORRIS STREPTOCO 3 [facility] CCUS INC INC GROUP A OPHTHALMO 76922 ZAYNAB WORTHY SCPY 3 JAM JAM EXTENDED RETINAL DRAWING I&R 1ST DETERMINA 17314 ZAYNAB WORTHY TION 3 JAM JAM REFRACTIV E STATE COLLECTIO 24812 ALEXANDRAREHANA MORRIS N VENOUS 3 [facility] BLOOD INC INC VENIPUNCT URE RADIOLOGI 25769 ALEXANDRA ALEXANDRA C EXAM 3 [facility] CHEST 2 INC INC VIEWS FRONTAL&L ATERAL BLOOD 46101 ALEXANDRA MORRIS COUNT 3 [facility] COMPLETE INC INC AUTO&AUTO DIFRNTL WBC COMPREHEN 17336 ALEXANDRA MORRIS SIVE 3 [facility] METABOLIC INC INC PANEL OPHTHALMO 91482 ZAYNAB WORTHY SCPY 3 JAM JAM EXTENDED RETINAL DRAWING I&R 1ST DETERMINA 07288 ZAYNAB WORTHY TION 3 JAM JAM REFRACTIV E STATE COLLECTIO 19628 ALEXANDRA MORRIS N VENOUS 3 [facility] BLOOD INC INC VENIPUNCT URE CT THORAX 89059 [facility] W/O 3 MEDICAL PIERRE CONTRAST IMAGING MATERIAL ASS 3D 97400 [facility] [place] RENDERING 3 MEDICAL PIERRE IMAGING W/INTERP& [place] [address] ALEXANDRA MORRIS UREA 3 [facility] NITROGEN INC INC QUANTITAT KONSTANTIN CREATININ 67030 ALEXANDRA De Luna BLOOD 3 [facility] INC INC ESOPHAGOG 26024 [place] MAHSA ASTRODUOD 3 MEDICAL ENOSCOPY [place] [address] ALEXANDRA MORRIS INFUSION 3 [facility] THERAPY INC INC PROPHYLAX IS/DX EA HOUR COLLECTIO 69178 COMBINED COMBINED N VENOUS 3 PHYSICIAN PHYSICIAN [place]LO[place] [address] COMBINED COMBINED THYROID 3 PHYSICIAN PHYSICIAN STIMULATI S LA S LA NG HORMONE TSH COMPREHEN 52580 COMBINED COMBINED SIVE 3 PHYSICIAN PHYSICIAN METABOLIC S LA S LA PANEL LIPID 55784 COMBINED COMBINED PANEL 3 PHYSICIAN PHYSICIAN S LA S LA BLOOD 35076 COMBINED COMBINED COUNT 3 PHYSICIAN PHYSICIAN COMPLETE S LA S LA AUTO&AUTO DIFRNTL WBC CATHETER C1726 ALEXANDRA MORRIS BALLOON 2 [facility] [place]ATAT[place] [address] ALEXANDRA MORRIS INFUSION 2 [facility] THERAPY/P INC INC ROPHYLAXI S /DX 1ST TO 1 HR EGD 21275 [place] MAHSA BALLOON 2 MEDICAL DILATION SERV ESOPHAGUS FOUNDATIO <30 [place] [address] ALEXANDRA ALEXANDRA INFUSION 2 [facility] THERAPY INC INC PROPHYLAX IS/DX EA HOUR IM ADM 74097 [place] MCKEMIE PRQ ID 2 [facility] JR OPAL SUBQ/IM INTERNAL NJXS 1 MED VACCINE TDAP 27813 [place] VACCINE 7 2 [facility] JR OPAL YRS/> IM INTERNAL MED PPSV23 13382 [place] VACCINE 2 2 [facility] JR OPAL YRS OR INTERNAL OLDER FOR MED SUBQ/IM USE ADMINISTR G0008 [place] ATION OF 2 [facility] INFLUENZA INTERNAL INTERNAL VIRUS MED MED VACCINE INFLUENZA Q2038 [place] VACC 2 [facility] SPLIT INTERNAL INTERNAL VIRUS 3 MED MED YRS & > [place] [address] [place] FILIP[place] ABDOMEN & 2 MEDICAL PIERRE PELVIS IMAGING W/O ASS CONTRAST MATERIAL 3D 68246 [place] FILIPPO RENDERING 2 MEDICAL PIERRE IMAGING W/INTERP& ASS POSTPROC DIFF WORK STATION CT THORAX 61503 [facility] FIL[facility] 2 MEDICAL PIERRE W/[place] [address] ALEXANDRA MORRIS ABDOMEN & 2 [facility] PELVIS INC INC W/CONTRAS T MATERIAL LOCM Q9967 ALEXANDRA MORRIS [phone] [facility] MG/ML INC INC IODINE CONCENTRA TION PER ML BLOOD 81150 ALEXANDRA MORRIS COUNT 2 [facility] COMPLETE INC INC AUTO&AUTO DIFRNTL WBC COLLECTIO 55016 ALEXANDRA MORRIS N VENOUS 2 [facility] BLOOD INC INC VENIPUNCT URE COMPREHEN 84474 ALEXANDRA MORRIS SIVE 2 [facility] [address] ALEXANDRA MORRIS INFUSION 2 [facility] THERAPY/P INC INC ROPHYLAXI S /DX 1ST TO 1 HR EGD 87683 [place] MAHSA [place] 2 MEDICAL DILATION SERV ESOPHAGUS FOUNDATIO <30 [place] [address] ALEXANDRA MORRIS INFUSION 2 [facility] THERAPY INC INC PROPHYLAX IS/DX EA HOUR CATHETER C1726 ALEXANDRA MORRIS [place] 2 [facility] DILATATIO INC INC N NON-VASCU LAR OPHTHALMO 30262 WORTHY WORTHY SCPY 2 IAN JAM EXTENDED RETINAL DRAWING I&R 1ST DETERMINA 33981 ZAYNAB WORTHY TION 2 IAN SOSA REFRACTIV E STATE OPHTH 33537 WORTHY ZAYNAB MEDICAL 2 IAN JAM XM&EVAL COMPRHNSV ESTAB PT 1/> COMPREHEN 39561 ALEXANDRA MORRIS SIVE 2 [facility] METABOLIC INC INC PANEL COLLECTIO 34641 ALEXANDRA MORRIS N VENOUS 2 [facility] BLOOD INC INC VENIPUNCT URE BLOOD 61365 ALEXANDRA MORRIS COUNT 2 [facility] COMPLETE INC INC AUTO&AUTO DIFRNTL WBC CATHETER C1726 ALEXANDRA SANTAON [place] 2 [facility] DILATATIO INC INC N NON-VASCU [place]AR EGD 56066 [place] MAHSA [place] 2 MEDICAL DILATION SERV ESOPHAGUS FOUNDATIO <30 [place] [address] ALEXANDRA MORRIS INFUSION 2 [facility] THERAPY INC [place] [address] ALEXANDRA MORRIS INFUSION 2 [facility] THERAPY/P INC INC ROPHYLAXI S /DX 1ST TO 1 [place] [address] ALEXANDRA MORRIS INFUSION 2 [facility] THERAPY/P INC INC ROPHYLAXI S /DX 1ST TO 1 [place] [address] ALEXANDRA MORRIS INFUSION 2 [facility] THERAPY INC INC PROPHYLAX IS/DX [place]GD 26644 [place] MAHSA [place] 2 MEDICAL DILATION SERV ESOPHAGUS FOUNDATIO <30 MM DIAM CATHETER C1726 ALEXANDRA MORRIS [place] 2 [facility] DILATATIO INC INC N NON-VASCU LAR OPHTHALMO 82590 ZAYNAB WORTHY SCPY 2 JAM JAM EXTENDED RETINAL DRAWING I&R 1ST DETERMINA 91165 ZAYNAB WORTHY TION 2 JAM JAM REFRACTIV E STATE INJECTION J3301 [place] 2 [facility] TRIAMCINO INTERNAL INTERNAL LONE MED MED ACETONIDE NOS 10 MG THERAPEUT 26223 [place] KEMIE IC 2 [facility] OPAL PROPHYLAC INTERNAL TIC/DX MED INJECTION SUBQ/IM SPCL STN 80087 PATHOLOGY PATHOLOGY 2 I&R 2 & & EXCPT CYTOLOGY CYTOLOGY MICROORG/ LAB LAB ENZYME/[place] [address] PATHOLOGY PATHOLOGY SURG 2 & & PATHOLOGY CYTOLOGY CYTOLOGY LAB LAB GROSS&JOSE CRUZ ROSCOPIC EXAM CATHETER C1726 ALEXANDRA SANTAON [place] 2 [facility] HOSP [place]ILATATIO [place] [address] ALEXANDRA MORRIS INFUSION 2 [facility] THERAPY/P INC INC ROPHYLAXI S /DX 1ST TO 1 HR EGD 69932 [place] MAHSA TRANSORAL 2 MEDICAL BIOPSY SERV SINGLE/[place]OUND[place] E[place] 36780 [place] MAHSA [place] 2 MEDICAL DILATION SERV ESOPHAGUS FOUNDATIO <30 [place] [address] ALEXANDRAREHANA MORRIS INFUSION 2 [facility] THERAPY INC INC PROPHYLAX IS/DX EA HOUR COLLECTIO 48528 ALEXANDRA MORRIS N VENOUS 2 [facility] BLOOD INC INC VENIPUNCT URE CT THORAX 31680 [place] BARKLEY W/O 2 MEDICAL PIERRE CONTRAST IMAGING MATERIAL ASS 3D 37637 [place] BARKLEY RENDERING 2 MEDICAL PIERRE IMAGING W/INTERP& [place] [address] ALEXANDRA MORRIS ABDOMEN & 2 [facility] PELVIS INC INC W/O CONTRAST MATERIAL BLOOD 67415 ALEXANDRA MORRIS COUNT 2 [facility] COMPLETE INC INC AUTO&AUTO DIFRNTL WBC COMPREHEN 35541 ALEXANDRA MORRIS SIVE 2 [facility] METABOLIC INC INC PANEL COMPREHEN 27228 COMBINED COMBINED SIVE 2 PHYSICIAN PHYSICIAN METABOLIC S LA S LA PANEL BLOOD 99828 COMBINED COMBINED COUNT 2 PHYSICIAN PHYSICIAN COMPLETE S LA S LA AUTO&AUTO DIFRNTL WBC TRAVEL [address] MED 2 PHYSICIAN PHYSICIAN NEC LAB S LA S LA SPEC; PRORATD TRIP CHRG COLLECTIO 25827 COMBINED COMBINED N VENOUS 2 PHYSICIAN PHYSICIAN B[place] [address] ALEXANDRA ALEXANDRA INFUSION 2 [facility] THERAPY INC INC PROPHYLAX IS/DX [place] EGD 51436 [place] MAHSA [place] 2 MEDICAL DILATION SERV ESOPHAGUS FOUNDATIO <30 [place] [address] ALEXANDRA ALEXANDRA INFUSION 2 [facility] THERAPY/P INC INC ROPHYLAXI S /DX 1ST TO 1 HR CATHETER C1726 ALEXANDRA ALEXANDRA [place] 2 [facility] DILATATIO INC INC N NON-VASCU LAR CATHETER C1726 ALEXANDRA ALEXANDRA [place] 2 [facility] [place] [address] ALEXANDRA ALEXANDRA INFUSION 2 [facility] THERAPY/P INC INC ROPHYLAXI S /DX 1ST TO 1 [place] EGD 58598 [place] MAHSA [place] 2 MEDICAL DILATION SERV ESOPHAGUS FOUNDATIO <30 [place] [address] ALEXANDRA ALEXANDRA INFUSION 2 [facility] THERAPY INC INC PROPHYLAX IS/DX EA HOUR RADIOLOGI 80497 CAROLINA BARKLEY C EXAM 2 MEDICAL PIERRE CHEST 2 IMAGING VIEWS ASS FRONTAL&L ATERAL 3D 88324 [place] BARKLEY RENDERING 1 MEDICAL PIERRE IMAGING W/INTERP& ASS POSTPROC DIFF WORK STATION CT LUMBAR 95451 CAR[place]INA BARKLEY SPINE 1 MEDICAL PIERRE W/O IMAGING CONTRAST ASS MATERIAL RADIOLOGI 83157 CAR[place]INA BARKLEY C 1 MEDICAL PIERRE EXAMINATI IMAGING ON FEMUR ASS 2 VIEWS RADEX HIP 16063 [place] BARKLEY 1 MEDICAL PIERRE UNILATERA IMAGING L ASS COMPLETE MINIMUM 2 [place] [address] ALEXANDRA ALEXANDRA INFUSION 1 [facility] THERAPY/P INC INC ROPHYLAXI S /DX 1ST TO 1 [place] [address] ALEXANDRA ALEXANDRA INFUSION 1 [facility] THERAPY INC INC PROPHYLAX IS/[place]GD 34708 [place] MAHSA [place] 1 MEDICAL DILATION SERV ESOPHAGUS FOUNDATIO <30 MM DIAM CATHETER C1726 ALEXANDRA ALEXANDRA [place] 1 [facility] DILATATIO INC INC N NON-VASCU LAR CATHETER C1726 ALEXANDRA ALEXANDRA [place] 1 [facility] DILATATIO INC INC N NON-VASCU LAR EGD 55485 [place] MAHSA [place] 1 MEDICAL DILATION SERV ESOPHAGUS FOUNDATIO <30 [place] [address] ALEXANDRA ALEXANDRA INFUSION 1 [facility] THERAPY INC [place] [address] ALEXANDRA ALEXANDRA INFUSION 1 [facility] THERAPY/P INC INC ROPHYLAXI S /DX 1ST TO 1 HR OPHTHALMO 55004 ZAYNAB WORTHY SCPY 1 JAM JAM EXTENDED RETINAL DRAWING I&R 1ST CATHETER C1726 ALEXANDRA ALEXANDRA [place] 1 [facility] [place]ATAT[place] [address] ALEXANDRA ALEXANDRA INFUSION 1 [facility] THERAPY/P INC INC ROPHYLAXI S /DX 1ST TO 1 HR EGD 27779 [place] MAHSA [place] 1 MEDICAL DILATION SERV ESOPHAGUS FOUNDATIO <30 [place] [address] ALEXANDRA ALEXANDRA INFUSION 1 [facility] THERAPY INC INC PROPHYLAX IS/DX EA HOUR 3D 47776 CAROLINA WAYUTCHER RENDERING 1 MEDICAL PIERRE IMAGING W/INTERP& ASS POSTPROC DIFF WORK STATION CT THORAX 61623 CAR[place]INA WAYUTCHER 1 MEDICAL PIERRE W/[place] [address] CAROLINA BARKLEY ABDOMEN & 1 MEDICAL PIERRE PELVIS IMAGING W/CONTRAS ASS T MATERIAL COLLECTIO 61607 COMBINED COMBINED N VENOUS 1 PHYSICIAN PHYSICIAN BLOOD S LA S LA VENIPUNCT URE TRAVEL [address] MED 1 PHYSICIAN PHYSICIAN NEC LAB S LA S LA SPEC; PRORATD TRIP CHRG COMPREHEN 96732 COMBINED COMBINED SIVE 1 PHYSICIAN PHYSICIAN METABOLIC S LA S LA PANEL CATHETER C1726 ALEXANDRA ALEXANDRA [place] 1 [facility] DILATATIO INC INC N NON-VASCU LAR EGD 72624 [place] MAHSA [place] 1 MEDICAL DILATION SERV ESOPHAGUS FOUNDATIO <30 [place] [address] ALEXANDRA ALEXANDRA INFUSION 1 [facility] THERAPY INC [place] [address] ALEXANDRA ALEXANDRA INFUSION 1 [facility] THERAPY/P INC INC ROPHYLAXI S /DX 1ST TO 1 HR EGD 93131 [place] MAHSA TRANSORAL 1 MEDICAL BIOPSY SERV SINGLE/MU FOUNDATIO LTIPLE OPHTH 65263 [facility] 1 JAM JAM XM&EVAL COMPRHNSV ESTAB PT 1/> OPHTHALMO 58517 [facility] IAN JAM EXTENDED RETINAL DRAWING I&[place] 1[place] [address] PATHOLOGY PATHOLOGY SURG 1 & & PATHOLOGY CYTOLOGY CYTOLOGY LAB LAB GROSS&JOSE CRUZ ROSCOPIC EXAM IMHISTOCH 95932 PATHOLOGY PATHOLOGY EM/CYTCHM 1 & & 1ST CYTOLOGY CYTOLOGY ANTIBODY LAB LAB STAIN PROCEDURE CATHETER C1726 ALEXANDRA ALEXANDRA [place] 1 [facility] DILATATIO INC INC N NON-VASCU LAR SPCL STN 94070 PATHOLOGY PATHOLOGY 2 I&R 1 & & EXCPT CYTOLOGY CYTOLOGY MICROORG/ LAB LAB ENZYME/[place] [address] ALEXANDRAREHANA MORRIS INFUSION 1 [facility] THERAPY/P INC INC ROPHYLAXI S /DX 1ST TO 1 HR EGD 20874 TAM GOMES MAHSA TRANSORAL 1 MEDICAL BIOPSY SERV SINGLE/[place] [address] ALEXANDRAREHANA MORRIS INFUSION 1 [facility] THERAPY INC INC PROPHYLAX IS/DX EA HOUR COLLECTIO 36164 COMBINED COMBINED N VENOUS 1 PHYSICIAN PHYSICIAN [place] [address] [facility] ABDOMEN & 1 MEDICAL PIERRE PELVIS IMAGING W/CONTRAS ASS T MATERIAL CT THORAX 75937 [facility] 1 MEDICAL PIERRE W/CONTRAS IMAGING T ASS MATERIAL 3D 80026 ALEXANDRA MORRIS RENDERING 1 [facility] INC INC W/INTERP& POSTPROC DIFF WORK STATION COLLECTIO 76001 COMBINED COMBINED N VENOUS 1 PHYSICIAN PHYSICIAN BLOOD S LA S LA VENIPUNCT URE BLOOD 94328 COMBINED COMBINED COUNT 1 PHYSICIAN PHYSICIAN COMPLETE S LA S LA AUTO&AUTO DIFRNTL WBC COMPREHEN 20472 COMBINED COMBINED SIVE 1 PHYSICIAN PHYSICIAN METABOLIC S LA S LA PANEL RADEX 27795 [place] FILIP[place] ESOPHAGUS 0 MEDICAL PIERRE IMAGING ASS COLONOSCO 07275 TAM GOMES MAHSA PY FLX DX 0 MEDICAL W/COLLJ [place] [address] ALEXANDRA SANTAON INFUSION 0 [facility] THERAPY/P INC INC ROPHYLAXI S /DX 1ST TO 1 [place] [address] ALEXANDRA ALEXANDRA INFUSION 0 [facility] THERAPY INC INC PROPHYLAX IS/DX EA HOUR OPHTHALMO 47127 ZAYNAB WORTHY SCPY 0 JAM JAM EXTENDED RETINAL DRAWING I&R 1ST 3D 88347 ALEXANDRA SANTAON RENDERING 0 [facility] INC INC W/INTERP& POSTPROC DIFF WORK STATION CT THORAX 99357 [facility] FILIPPO 0 MEDICAL PIERRE W/CONTRAS IMAGING T ASS MATERIAL CT PELVIS 66522 [facility] FIL[facility] 0 MEDICAL PIERRE [place] [address] [facility] FIL[place]PO ABDOMEN 0 MEDICAL PIERRE W/CONTRAS IMAGING T ASS MATERIAL COLLECTIO 79884 COMBINED COMBINED N VENOUS 0 PHYSICIAN PHYSICIAN BLOOD S LA S LA VENIPUNCT URE BLOOD 35252 COMBINED COMBINED COUNT 0 PHYSICIAN PHYSICIAN COMPLETE S LA S LA AUTO&AUTO DIFRNTL WBC COMPREHEN 56640 COMBINED COMBINED SIVE 0 PHYSICIAN PHYSICIAN METABOLIC S LA S LA PANEL TRAVEL [address] MED 0 PHYSICIAN PHYSICIAN NEC LAB S LA S LA SPEC; PRORATD TRIP CHRG SPCL STN 54312 PATHOLOGY PATHOLOGY 2 I&R 0 & & EXCPT CYTOLOGY CYTOLOGY MICROORG/ LAB LAB ENZYME/IM CYT CATHETER C1726 ALEXANDRA MORRIS [place] 0 [facility] DILATATIO [place] [address] PATHOLOGY PATHOLOGY SURG 0 & & PATHOLOGY CYTOLOGY CYTOLOGY LAB LAB GROSS&[place] [address] ALEXANDRA SANTAON INFUSION 0 [facility] THERAPY INC INC PROPHYLAX IS/DX [place]GD 82257 [place] MAHSA TRANSORAL 0 MEDICAL BIOPSY SERV SINGLE/[place] [address] ALEXANDRA MORRIS INFUSION 0 [facility] THERAPY/P INC INC ROPHYLAXI S /DX 1ST TO 1 HR CHANGE 36390 ALEXANDRA MORRIS GASTROSTO 0 [facility] MY TUBE INC INC PERCUTANE OUS W/O GDNCE COMPREHEN 41840 COMBINED COMBINED SIVE 0 PHYSICIAN PHYSICIAN METABOLIC S LAB S LAB PANEL BLOOD 88648 COMBINED COMBINED COUNT 0 PHYSICIAN PHYSICIAN COMPLETE S LAB S LAB AUTO&AUTO DIFRNTL WBC COLLECTIO 81892 COMBINED COMBINED N VENOUS 0 PHYSICIAN PHYSICIAN BLOOD S LAB S LAB VENIPUNCT URE OPHTH 72393 ZAYNAB WORTHY, MEDICAL 0 ALEM FERRARA XM&EVAL COMPRHNSV ESTAB PT 1/> [place] [address] [facility] FILIPPO, ABDOMEN 0 MEDICAL GUANACO W/CONTRAS IMAGING T ASSOCIATE MATERIAL S CT THORAX 22408 [facility], 0 MEDICAL GUANACO W/CONTRAS IMAGING T ASSOCIATE MATERIAL S 3D 01118 [facility] WAYFILIPPO, RENDERING 0 MEDICAL GUANACO IMAGING W/INTERP& ASSOCIATE POSTPROC S DIFF WORK STATION COLLECTIO 87111 COMBINED COMBINED N VENOUS 0 PHYSICIAN PHYSICIAN BLOOD S LAB S LAB VENIPUNCT URE COMPREHEN 64124 COMBINED COMBINED SIVE 0 PHYSICIAN PHYSICIAN METABOLIC S LAB S LAB PANEL BLOOD 13739 COMBINED COMBINED COUNT 0 PHYSICIAN PHYSICIAN COMPLETE S LAB S LAB AUTO&AUTO DIFRNTL WBC TRAVEL [address] MED 0 PHYSICIAN PHYSICIAN NEC LAB S LAB S LAB SPEC; PRORATD TRIP CHRG SPCL STN 78556 PATHOLOGY PATHOLOGY 2 I&R 0 & & EXCPT CYTOLOGY CYTOLOGY MICROORG/ LAB LAB ENZYME/[place] [address] PATHOLOGY PATHOLOGY SURG 0 & & PATHOLOGY CYTOLOGY CYTOLOGY LAB LAB GROSS&JOSE CRUZ ROSCOPIC EXAM IMHISTOCH 28046 PATHOLOGY PATHOLOGY EM/CYTCHM 0 & & 1ST CYTOLOGY CYTOLOGY [place] [address] ALEXANDRA SANTAON INFUSION 0 [facility] THERAPY/P INC INC ROPHYLAXI S /DX 1ST TO 1 [place] [address] ALEXANDRA ALEXANDRA INFUSION 0 [facility] THERAPY INC INC PROPHYLAX IS/DX EA HOUR ENDOSCOPY 72562 [place] GOM[place], UPPER 0 MEDICAL PATRICK SMALL SERV INTESTINE FOUNDATIO W/BIOPSY CT THORAX 05646 [facility], W/O 9 MEDICAL GUANACO CONTRAST IMAGING MATERIAL ASSOCIATE S 3D 93191 ALEXANDRA SANTAON RENDERING 9 [facility] INC INC W/INTERP& [place] [address] [facility], ABDOMEN 9 MEDICAL GUANACO W/O IMAGING CONTRAST ASSOCIATE MATERIAL S COMPREHEN 22076 COMBINED COMBINED SIVE 9 PHYSICIAN PHYSICIAN METABOLIC S LAB S LAB PANEL COLLECTIO 47011 COMBINED COMBINED N VENOUS 9 PHYSICIAN PHYSICIAN BLOOD S LAB S LAB VENIPUNCT URE RADIOLOGI 75958 CAR[place]INA Daisy BARKLEY 9 MEDICAL GUANACO EXAMINATI IMAGING ON KNEE 3 ASSOCIATE VIEWS S COLLECTIO 27946 COMBINED COMBINED N VENOUS 9 PHYSICIAN PHYSICIAN BLOOD S LAB S LAB VENIPUNCT URE COMPREHEN 35678 COMBINED COMBINED SIVE 9 PHYSICIAN PHYSICIAN METABOLIC S LAB S LAB PANEL GONADOTRO 56694 LAB TULIO LAB TULIO PIN 9 AMERIC AMERIC FOLLICLE HOLDING HOLDING STIMULATI NG HORMONE GONADOTRO 57402 LAB TULOI LAB TULIO PIN 9 AMERIC AMERIC LUTEINIZI HOLDING HOLDING NG HORMONE SCR [id number] PATHOLOGY PATHOLOGY CYTOPATH 9 & & CERV/VAG CYTOLOGY CYTOLOGY THIN LAY LAB LAB PREP INTEPR PHYS URNLS DIP 05712 [place] MCKEMIE 9 WILLIAMS JR, STICK/TAB INTERNAL ERLIN F LET RGNT MED NON-AUTO W/O MICRSCP SCR G0145 PATHOLOGY PATHOLOGY CYTOPATH 9 & & CERV/VAG CYTOLOGY CYTOLOGY SCR LAB LAB AUTO&[place] [address] PATHOLOGY PATHOLOGY SURG 9 & & PATHOLOGY CYTOLOGY CYTOLOGY LAB LAB GROSS&JOS ECRUZ ROSCOPIC EXAM CHANGE 80047 TAM SANTIAGOA, GASTROSTO 9 MEDICAL PATRICK MY TUBE SERV PERCUTANE FOUNDATIO OUS W/O GDNCE SPCL STN 90564 PATHOLOGY PATHOLOGY 2 I&R 9 & & EXCPT CYTOLOGY CYTOLOGY MICROORG/ LAB LAB ENZYME/IM CYT CATHETER C1726 ALEXANDRA MORRIS [place] 9 [facility] [place] [address] ALEXANDRA MORRIS INFUSION 9 [facility] THERAPY/P INC INC ROPHYLAXI S /DX 1ST TO 1 HR EGD 89788 [place] GOM[place], TRANSORAL 9 MEDICAL PATRICK BIOPSY SERV SINGLE/[place] [address] ALEXANDRA MORRIS INFUSION 9 [facility] THERAPY INC INC PROPHYLAX IS/DX [place] EGD 56227 [place] GOMES, [place] 9 MEDICAL PATRICK DILATION SERV ESOPHAGUS FOUNDATIO <[address] PELVIS 66588 ALEXANDRA MORRIS 9 [facility] W/CONTRAS INC INC T MATERIAL CT THORAX 28849 [place] HERB, 9 MEDICAL RUTHY P W/CONTRAS IMAGING T ASSOCIATE MATERIAL S 3D 87429 [place] HER[place], RENDERING 9 MEDICAL RUTHY P IMAGING W/INTERP& [place]OCI[place] [address] [place], ABDOMEN 9 MEDICAL RUTHY P W/[place] [address] ALEXANDRA MORRIS GUIDANCE 9 [facility] NEEDLE INC INC PLACEMENT IMG S&I IMMUNOASS 30896 LAB TULIO LAB TULIO AY TUMOR 9 [employer]IC [employer] ANTIGEN HOLDING HOLDING QUANTITAT [place] CA 19-9 COMPREHEN 29836 COMBINED COMBINED SIVE 9 PHYSICIAN PHYSICIAN METABOLIC S LAB S LAB PANEL BLOOD 51064 COMBINED COMBINED COUNT 9 PHYSICIAN PHYSICIAN COMPLETE S LAB S LAB AUTO&AUTO DIFRNTL WBC COLLECTIO 80065 COMBINED COMBINED N VENOUS 9 PHYSICIAN PHYSICIAN BLOOD S LAB S LAB VENIPUNCT URE 3D 66595 [place] FILIPPO, RENDERING 9 MEDICAL GUANACO IMAGING W/INTERP& ASSOCIATE POSTPROC S DIFF WORK STATION CT THORAX 83165 [place] FILIPPO, 9 MEDICAL [place] W/CONTRAS IMAGING T ASSOCIATE MATERIAL S CT PELVIS 60995 [place] FILIPPO, 9 MEDICAL [place]UA[place] W/CONTRAS IMAGING T ASSOCIATE MATERIAL S THYROID 35014 ALEXANDRA MORRIS HORM 9 [facility] UPTK/THYR [place] [address] [place], ABDOMEN 9 MEDICAL GUANACO W/CONTRAS [place]AG[place] [address] ALEXANDRA MORRIS THYROXINE 9 [facility] [place] [address] ALEXANDRA MORRIS THYROID 9 [facility] STIMULATI [place] [address] ALEXANDRA MORRIS UREA 9 [facility] NITROGEN INC INC QUANTITAT K[place] CREATININ 89502 ALEXANDRA MORRIS E BLOOD 9 [facility] INC INC OPHTHALMO 63335 ZAYNAB WORTHY, SCPY 9 ALEM FERRARA EXTENDED RETINAL DRAWING I&R 1ST CHANGE 38555 ANURAGSTPRISCA SCHULSTAD GASTROSTO 9 , BRENDAN , BRENDAN MY TUBE PERCUTANE OUS W/O GDNCE CUL BACT 55648 ALEXANDRA ALEXANDRA XCPT 9 [facility] URINE INC INC BLOOD/STO OL AEROBIC ISOL EGD 43004 [place] G[place], TRANSORAL 8 MEDICAL PATRICK BIOPSY SERV SINGLE/MU FOUNDATIO LTIPLE EGD 11224 [place], [place] 8 MEDICAL PATRICK DILATION SERV ESOPHAGUS FOUNDATIO <30 MM DIAM CATHETER C1726 ALEXANDRA MORRIS [place] 8 [facility] DILATATIO INC INC N NON-VASCU LAR SPCL STN 11572 PATHOLOGY PATHOLOGY 2 I&R 8 & & EXCPT CYTOLOGY CYTOLOGY MICROORG/ LAB LAB ENZYME/[place] [address] PATHOLOGY PATHOLOGY SURG 8 & & PATHOLOGY CYTOLOGY CYTOLOGY LAB LAB GROSS&[place] NFS [address] ALEXANDRA MORRIS THER 8 [facility] PROPH/DX INC INC 1ST >[address] PELVIS 63684 ALEXANDRA MORRIS 8 [facility] W/CONTRAS INC INC T MATERIAL CT THORAX 72404 ALEXANDRA MORRIS 8 [facility] W/CONTRAS INC INC T MATERIAL 3D 64040 ALEXANDRA MORRIS RENDERING 8 [facility] INC INC W/INTERP& POSTPROC DIFF WORK STATION COMPREHEN 55865 ALEXANDRA MORRIS SIVE 8 [facility] METABOLIC INC INC PANEL BLOOD 17609 ALEXANDRA MORRIS COUNT 8 [facility] COMPLETE INC INC AUTO&[place] [address] ALEXANDRA MORRIS ABDOMEN 8 [facility] W/CONTRAS INC INC T MATERIAL BLOOD 21102 COMBINED COMBINED COUNT 8 PHYSICIAN PHYSICIAN COMPLETE S LAB S LAB AUTO&AUTO DIFRNTL WBC COMPREHEN 70266 COMBINED COMBINED SIVE 8 PHYSICIAN PHYSICIAN METABOLIC S LAB S LAB PANEL COLLECTIO 94003 COMBINED COMBINED N VENOUS 8 PHYSICIAN PHYSICIAN BLOOD S LAB S LAB VENIPUNCT URE MRI BRAIN 35592 FILIPPO FILIPPO, BRAIN 8 GUANACO GUANACO STEM W/O W/CONTRAS T MATERIAL CT THORAX 38188 [place] ESTEVEZ, 8 MEDICAL RUTHY P W/CONTRAS IMAGING T ASSOCIATE MATERIAL S 3D 20703 ALEXANDRA ALEXANDRA RENDERING 8 [facility] INC INC W/INTERP& [place] [address] [place] ESTEVEZ, ABDOMEN 8 MEDICAL RUTHY P W/CONTRAS IMAGING [place] [address] ALEXANDRA MORRIS UREA 8 [facility] NITROGEN [place] [address] ALEXANDRA MORRIS THER 8 [facility] PROPH/DX INC INC 1ST >1 HR IV NFUS 42003 ALEXANDRA MORRIS THER 8 [facility] PROPH/DX INC INC EA HR CREATININ 68057 ALEXANDRA MORRIS E BLOOD 8 [facility] INC INC ENTERAL B4034 HOME ALF CARE FEEDING 8 [place] SUPPLY KIT; SYRINGE FED PER DAY ENTRAL F B4150 HOME ALF CARE NUTRITION 8 [employer] PART[employer]ERS ALLY CMPL W/INTACT NUTRIENTS ENTERAL B4034 HOME ALF CARE FEEDING 8 [facility] SUPPLY KIT; [place] [address] ALEXANDRA ALEXANDRA ABDOMEN 8 [facility] W/O INC INC CONTRAST MATERIAL 3D 43783 ALEXANDRA MORRIS RENDERING 8 [facility] INC INC W/INTERP& POSTPROC DIFF WORK STATION CT PELVIS 90018 [facility] [place] ESTEVEZ, W/O 8 MEDICAL RUTHY P CONTRAST IMAGING MATERIAL ASSOCIATE S CT THORAX 32167 [facility] [facility] CITY[place]olly ESTEVEZ, W/O 8 MEDICAL RUTHY P CONTRAST IMAGING MATERIAL ASSOCIATE S ENTRAL F B4150 HOME ALF CARE NUTRITION 8 PARTNERS PARTNERS ALLY CMPL W/INTACT NUTRIENTS ENTERAL B4034 HOME [facility]ARE FEEDING 8 Teros SUPPLY KIT; SYRINGE FED PER DAY ENTERAL B4034 HOME ALF CARE FEEDING 8 Teros SUPPLY KIT; SYRINGE FED PER DAY HOSPITAL 85747 ALFONSO MATHEW, DISCHARGE 8 [facility] NYDIA DAY INTERNAL MANAGEMEN MED T 30 MIN/< SBSQ 50425 [facility] 8 [facility], CARE/DAY INTERNAL ERLIN F 25 MED MINUTES SBSQ [id number], CARE/DAY INTERNAL ERLIN F 25 MED [place]UT[place]BD [address] TRACYMolly ESTEVEZ, COMPL 8 MEDICAL RUTHY P AQT ABD IMAGING W/S/E/D ASSOCIATE VIEWS 1 S VIEW CH INITIAL [address], CARE/DAY INTERNAL ERLIN F 50 MED MINUTES RADIOLOGI 62896 Daisy JOHN EXAM 8 MEDICAL GUANACO CHEST 2 IMAGING VIEWS ASSOCIATE FRONTAL&L S ATERAL COLLECTIO 28720 [facility] MORRIS N VENOUS 8 [facility] BLOOD INC INC VENIPUNCT URE BASIC 30827 [facility] MORR[facility] METABOLIC 8 [facility] PANEL INC INC CALCIUM TOTAL BLOOD 68107 [facility] M[facility] COUNT 8 [facility] COMPLETE INC INC AUTO&AUTO DIFRNTL WBC THER 54755 [facility] M[facility] PROPH/DX 8 [facility] NJX EA INC INC SEQL IV PUSH SBST/[place] 03854 [facility] M[facility]RIS THER 8 [facility] PROPH/DX INC INC 1ST >1 [place] NFS 03177 A[facility]DR[facility] MORRIS THER 8 [facility] PROPH/DX INC INC 1ST >1 HR IV NFUS 08861 [facility] M[facility]RIS THER 8 [facility] PROPH/DX INC INC EA HR CHEMOTX 10230 ALEXANDRA MORRIS ADMN IV 8 [facility] PUSH TQ INC INC 1/ SBST/DRUG INJECTION J9178 [facility] 8 [facility] EPIRUBICI INC INC N HCL 2 MG CHEMOTX 53646 ALEXANDRA MORRIS ADMN IV 8 [facility] NFS TQ UP INC INC 1 HR 1/ SBST/DRUG INJECTION J9060 [facility] 8 [facility] CISPLATIN INC INC POWDER OR SOLUTION 10 MG AMB INFUS E0781 HOME ALF CARE PUMP 8 PARTNERS PARTNERS 1/MX CHANNL W/ADMN EQP WORN BY PT INFUS SPL A4222 HOME [facility]ARE EXT RX 8 PARTNERS PARTNERS INFUS PUMP CASSETTE/ BAG INJECTION J9178 [facility] 8 [facility] EPIRUBICI INC INC N HCL 2 MG SUPPLIES A4221 HOME [facility]F CARE FOR MAINT 8 PARTNERS PARTNERS NON-INS RX INFUS CATH PER WK INJECTION J9060 [facility] 8 [facility] CISPLATIN INC INC POWDER OR SOLUTION 10 MG CHEMOTX 85111 ALEXANDRA MORRIS ADMN IV 8 [facility] NFS TQ UP INC INC 1 HR 1/ SBST/DRUG CHEMOTX 78904 ALEXANDRA MORRIS ADMN IV 8 [facility] NFS TQ EA INC INC SEQL NFS TO 1 HR IV NFUS 13678 A[facility]DR[facility] M[facility]RIS THER 8 [facility] PROPH/[place] [address]183 A[facility] MORRIS THER 8 [facility] PROPH/DX INC INC 1ST >1 HR AMB INFUS E0781 [facility] PUMP 8 PARTNERS PARTNERS 1/MX CHANNL W/ADMN EQP WORN BY PT SUPPLIES A4221 [facility]ARE FOR MAINT 8 PARTNERS PARTNERS NON-INS RX INFUS CATH PER WK INFUS SPL A4222 HOME [facility]F CARE EXT RX 8 PARTNERS PARTNERS INFUS PUMP CASSETTE/ BAG INJECTION J9190 HOME ALF CARE 8 PARTNERS PARTNERS FLUOROURA CIL 500 MG RPLCMT 07464 [facility] COMPL 8 Y Y PRPH [facility] HOSPITAL W/O SUBQ 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 NONINVASI 37748 [facility] VE 8 Y Y EAR[facility] O[facility] SINGLE DETER RADIOLOGI 02130 [facility] 8 Y Y [facility]INAARNOT [facility] SINGLE VIEW FRONTAL ENTERAL B4034 HOME ALF CARE FEEDING 8 PARTNERS PARTNERS SUPPLY KIT; SYRINGE FED PER DAY CATHETER C1751 [facility] 8 Y Y INSTHE [facility] L[facility] CNTRLLY/M IDLN INJECTION J2997 [facility] 8 Y Y [facility] NT 1 MG INJECTION J9060 [facility]RIS 8 [facility] CISPLATIN INC INC POWDER OR SOLUTION 10 MG CHEMOTX 75202 ALEXANDRA MORRIS ADMN IV 8 [facility] NFS TQ UP INC INC 1 HR 1/ SBST/DRUG CHEMOTHER 17232 ALEXANDRA MORRIS APY ADMN 8 [facility] IV INC INC INFUSION TQ EA HR INJECTION J9178 [facility] 8 [facility] EPIRUBICI INC INC N HCL 2 MG CHEMOTX 72550 ALEXANDRA MORRIS ADMN IV 8 [facility] PUSH TQ INC INC EA SBST/DRUG ENTRAL F B4150 HOME [facility]F CARE NUTRITION 8 PARTNERS PARTNERS ALLY CMPL W/INTACT NUTRIENTS AMB INFUS E0781 HOME ALF CARE PUMP 8 PARTNERS PARTNERS 1/MX CHANNL W/ADMN EQP WORN BY PT INFUS SPL A4222 HOME ALF CARE EXT RX 8 PARTNERS PARTNERS INFUS PUMP CASSETTE/ BAG GRANISETR Q0166 ALEXANDRA MORRIS ON HCL 1 8 [facility] MG ORL INC INC NOT >48 HR DOSE REGIMEN CHEMOTX 38385 ALEXANDRA MORRIS ADMN IV 8 [facility] PUSH TQ INC INC EA SBST/DRUG CHEMOTHER 00651 A[facility]ANDRA ALLISON ADMN 8 [facility] IV INC INC INFUSION TQ EA HR INJECTION J9178 [facility] MORRIS 8 [facility] EPIRUBICI INC INC N HCL 2 MG SUPPLIES A4221 HOME ALF CARE FOR MAINT 8 PARTNERS PARTNERS NON-INS RX INFUS CATH PER WK CHEMOTX 95375 ALEXANDRA MORRIS ADMN IV 8 [facility] NFS TQ UP INC INC 1 HR 1/ SBST/DRUG INJECTION J9060 [facility] 8 [facility] CISPLATIN INC INC POWDER OR SOLUTION 10 MG INJECTION J9190 HOME ALF CARE 8 PARTNERS PARTNERS FLUOROURA CIL 500 MG ENTERAL B4034 HOME ALF CARE FEEDING 8 PARTNERS PARTNERS SUPPLY KIT; SYRINGE FED PER DAY ECHO 52231 A[facility]DR[facility] MORRIS TRANSTHOR 8 [facility] AC R-T 2D INC INC W/WO M-MODE REC COMP DOP 71509 A[facility]DRA MORRIS ECHOCARD 8 [facility] COLOR INC INC FLOW VELOCITY MAPPING DOPPLER 37193 A[facility]DR[facility] MORRIS ECHOCARD 8 [facility] PULSE INC INC WAVE W/S[place] [address] A[facility]ANDRA MORRIS THER 8 [facility] PROPH/DX INC INC 1ST >1 HR EGD 66004 [place] TRANSORAL 8 MEDICAL MEDICAL BIOPSY SERV SERV SINGLE/[place] [address] PATHOLOGY PATHOLOGY SURG 8 & & PATHOLOGY CYTOLOGY CYTOLOGY LAB LAB GROSS&JOSE CRUZ ROSCOPIC EXAM SPECIAL 70384 PATHOLOGY PATHOLOGY STAIN 8 & & GROUP 1 CYTOLOGY CYTOLOGY MICROORGA LAB LAB NISMS I&R SPCL STN 12930 PATHOLOGY PATHOLOGY 2 I&R 8 & & EXCPT CYTOLOGY CYTOLOGY MICROORG/ LAB LAB ENZYME/IM CYT ENTERAL B4034 HOME ALF CARE FEEDING 8 PARTNERS PARTNERS SUPPLY KIT; SYRINGE FED PER DAY ENTRAL F B4150 HOME ALF CARE NUTRITION 8 PARTNERS PARTNERS ALLY CMPL W/INTACT NUTRIENTS Encounters Encounter Start End Date Code Location Performer Type Date OFFICE 99395 DERMATOLO MUSIC OUTPATIEN 7 7 GY T VISIT CONSULTAN 15 TS PSC MINUTES OFFICE 05444 [facility] WORTHY OUTPATIEN 7 7 [facility] 25 P[facility] MINUTES OFFICE 44161 FAUSTINO HARMON OUTPATIEN 6 6 ROCAEL ROCAEL T VISIT 15 MINUTES OFFICE 55551 DERMATOLO MUSIC OUTPATIEN 6 6 GY T VISIT CONSULTAN 15 TS PSC MINUTES OFFICE 22121 FAUSTINO HARMON OUTPATIEN 6 6 ROCAEL ROCAEL T VISIT 15 MINUTES OFFICE 90843 [facility] OUTPATIEN 6 6 [facility], 25 P[facility]C. MINUTES OFFICE 91302 FAUSTINO HARMON OUTPATIEN 6 6 ROCAEL ROCAEL T NEW 30 MINUTES [facility] ALEXANDRA - 6 6 [facility] OUTPATIEN INC T OFFICE 26597 [place] WORTHY OUTPATIEN 6 6 [facility], 25 P[facility] - 6 6 [facility] - 6 6 [facility] OUTPATIEN INC T OFFICE 16302 DERMATOLO MUSIC ELIZABETH OUTPATIEN 6 6 GY T VISIT CONSULTAN 15 TS [facility] ALEXANDRA - 6 6 [facility] OUTPATIEN INC T OFFICE 71720 GIOVANNA MARTÍNEZ OUTPATIEN 6 6 ORNI CHRISTIAN T [facility] 30 MINUTES [facility] - 5 5 [facility] OUTPATIEN INC T OFFICE 65780 DERMATOLO MUSIC ELIZABETH OUTPATIEN 5 5 GY T NEW 10 CONSULTAN MINUTES TS PSC OFFICE 45501 [facility] BLANCA TOD OUTPATIEN 5 5 PHYSICIAN T VISIT S GROUP 10 MINUTES [facility] - 5 5 [facility] OUTPATIEN INC T OFFICE 85854 [facility] BESSON OUTPATIEN 5 5 [facility] PATRICA T VISIT INTERNAL 15 MED MINUTES [facility] - 5 5 [facility] OUTPATIEN INC T OFFICE 92777 [facility] BLANCA TOD OUTPATIEN 5 5 PHYSICIAN T NEW 30 S GROUP MINUTES OFFICE 82177 [facility] [facility] OUTPATIEN 5 5 [facility] PATRICA T VISIT INTERNAL 15 MED MINUTES [facility] - 5 5 [facility] OUTPATIEN INC T OFFICE 30564 [place] B[facility] OUTPATIEN 5 5 [facility] T VISIT INTERNAL 25 MED MINUTES [facility] - 5 5 [facility] - 5 5 [facility] - 5 5 [facility] OFFICE 38594 [facility] USERY AND OUTPATIEN 5 5 [facility] VISIT INTERNAL 25 MED MINUTES OFFICE 35683 ZAYNAB WORTHY OUTPATIEN 4 4 IAN JAM T VISIT 25 MINUTES [facility] - 4 4 [facility] - 4 4 [facility] OFFICE 18911 ZAYNAB WORTHY OUTPATIEN 4 4 IAN JAM T VISIT 25 MINUTES [facility]OSP[facility] - 4 4 [facility] - 4 4 [facility] - OTHER 4 4 [facility] EMERGENC[facility] 26079 LEATHA ALBRIGHT 3 3 EMERGENCY DEPARTMEN SERVICES T VISIT HIGH/URGE NT SEVERITY [facility] - 3 3 [facility] OUT[facility] EMERGENCY 55213 [facility] 3 3 [facility] T VISIT LOW/MODER SEVERITY OFFICE 07140 ZAYNAB RYDERPATIEN 3 3 IAN JAM T VISIT 15 MINUTES OFFICE 72754 A[facility]DRA RYDERPATIEN [address] [facility] T VISIT HOSPITAL 10 P MINUTES [facility]OSPITAL [facility] - 3 3 [facility] OFFICE 02400 [facility] OUTPATIEN 3 3 [facility] T VISIT INTERNAL 15 MED MINUTES OFFICE 40988 [facility] MCKEMIE OUTPATIEN 3 3 WILLI[facility] JOSEPH T VISIT INTERNAL 15 MED MINUTES OFFICE 72585 [facility] OUTPATIEN 3 3 [facility] VISIT INTERNAL 15 MED MINUTES OFFICE 43803 ZAYNAB WORTHY OUTPATIEN 3 3 IAN SOSA T VISIT 25 MINUTES [facility]OSP[facility] - 3 3 [facility] - 3 3 [facility]PATIEN INC T OFFICE 74766 [facility] MCKEMIE OUTPATIEN 3 3 [facility] JOSEPH T VISIT INTERNAL 15 MED MINUTES OFFICE 37315 [facility] MCKEMIE OUTPATIEN 3 3 [facility] JOSEPH T VISIT INTERNAL 15 MED MINUTES [facility] - 2 2 [facility] OUTPATIEN INC T OFFICE 53830 [place] MCKEMIE OUTPATIEN 2 2 [facility] JOSEPH T VISIT INTERNAL 15 MED MINUTES OFFICE 01415 [facility] MCKEMIE OUTPATIEN 2 2 [facility] JOSEPH T VISIT INTERNAL 15 MED MINUTES [facility] - 2 2 [facility] - 2 2 [facility] - 2 2 [facility]PATI[facility] INC T OFFICE 47177 [facility] MCKEMIE OUTPATIEN 2 2 WILLI[facility] JOSEHP T VISIT INTERNAL 15 MED MINUTES [facility] - 2 2 [facility] OUTPATIEN INC T OFFICE 02908 [place] MCKEMIE OUTPATIEN 2 2 [facility] JOSEPH T VISIT INTERNAL 15 MED MINUTES [facility] - 2 2 [facility] OUTPATI[facility] INC T OFFICE 10731 [place] MCKEMIE OUTPATIEN 2 2 [facility] JOSEPH T VISIT INTERNAL 10 MED MINUTES [facility] - 2 2 [facility] OFFICE 76454 [place] MCKEMIE OUTPATIEN 2 2 [facility] JOSEPH T VISIT INTERNAL 15 MED MINUTES OFFICE 93536 [place] MCKEMIE OUTPATIEN 2 2 [facility] JOSEPH T VISIT INTERNAL 15 MED MINUTES OFFICE 19280 ZAYNAB WORTHY OUTPATIEN 2 2 IAN SOSA T VISIT 25 MINUTES OFFICE 52102 [place] MCKEMIE OUTPATIEN 2 2 [facility] JOSEPH T VISIT INTERNAL 15 MED MINUTES [facility]OS[facility] - 2 2 [facility] OFFICE 39697 ALEXANDRA DONAHUE QAI OUTPATIEN 2 2 [facility] 25 P MINUTES [facility]OSPITAL [facility] - 2 2 [facility] - 2 2 [facility]PATI[facility] - 2 2 [facility]PATI[facility] - 1 1 [facility]PATI[facility] - 1 1 [facility] - 1 1 [facility]PATI[facility] OFFICE 55377 ZAYNAB WORTHY OUTPATIEN 1 1 IAN SOSA T VISIT 25 MINUTES HOSPITAL [facility] - 1 1 [facility] OFFICE 39186 A[facility]DRA COHENI OUTPATIEN 1 1 [facility] 25 P MINUTES [facility]OSP[facility] - 1 1 [facility] - 1 1 [facility] - 1 1 [facility] OUTPATIEN INC T OFFICE 06152 A[facility]DRA ROWAN QAI OUTPATIEN 1 1 [facility] T VISIT HOSP[facility] 25 P [facility] ALEXANDRA - 1 1 [facility] OUTPATIEN INC T OFFICE 38672 [place] MCKEMIE OUTPATIEN 1 1 [facility] JOSEPH T VISIT INTERNAL 15 MED MINUTES OFFICE 07303 [place] MCKEMIE OUTPATIEN 1 1 [facility] JOSEPH T VISIT INTERNAL 15 MED MINUTES OFFICE 01407 [place] MCKEMIE OUTPATIEN 1 1 WILLI[facility] JOSEPH T VISIT INTERNAL 15 MED [facility] A[facility]A - 0 0 [facility] OUTPATIEN INC T OFFICE 08965 EVANGELICAL IMAM MORRISSEY OUTPATIEN 0 0 CARDIOTHO T VISIT [facility] 10 SURGI [facility] - 0 0 [facility] OUTPATIEN INC T OFFICE 62257 ZAYNAB WORTHY OUTPATIEN 0 0 IAN SOSA T VISIT 40 MINUTES [facility] - 0 0 [facility] OUTPATIEN INC [facility] - 0 0 [facility]PAT[facility] INC [facility] - 0 0 [facility] OUTPATIEN INC T OFFICE 49831 EVANGELICALMASHA SOTO OUTPATIEN 0 0 CARDIOTHO YOUNG M T VISIT [facility] 15 SURGICAL MINUTES GROUP OFFICE 46854 A[facility]DRA DELEON OUTPATIEN 0 0 [facility] VISIT HOSPITAL 15 PROF SERV MINUTES [facility] - 0 0 [facility] OUTPATIEN INC [facility] - 0 0 [facility] OUTPATIEN INC T OFFICE 45031 [place] MCKEMIE OUTPATIEN 9 9 [facility], T VISIT INTERNAL ERLIN F 15 MED [facility] ALEX[facility]DRA - 9 9 [facility] OUTPATIEN INC T OFFICE 67855 [facility] MCKEMIE OUTPATIEN 9 9 [facility] GONZALEZ, T VISIT INTERNAL ERLIN F 15 MED MINUTES [facility]OSP[facility] - 9 9 [facility]PAT[facility] INC T OFFICE 46715 [place], OUTPATIEN 9 9 [facility] 10 CLINIC H MINUTES PSC OFFICE 02968 [facility] MCKEMIE OUTPATIEN 9 9 WILLI[facility] GONZALEZ, T VISIT INTERNAL ERLIN F 15 MED MINUTES OFFICE 71762 [place] MCKEMIE OUTPATIEN 9 9 [facility] GONZALEZ, T VISIT INTERNAL ERLIN F 15 MED MINUTES [facility] - 9 9 [facility]IEN INC T OFFICE 07407 [facility] MCKEMIE OUTPATIEN 9 9 [facility] GONZALEZ, Shivani VISIT INTERNAL ERLIN F 15 MED MINUTES [facility]OS[facility] - 9 9 [facility] OUTPATIEN INC T OFFICE 97243 [facility] MCKEMIE OUTPATIEN 9 9 WILLIAMS GONZALEZ, T VISIT INTERNAL ERLIN F 15 MED MINUTES OFFICE 61026 [facility] MCKEMIE OUTPATIEN 9 9 WILLIAMS GONZALEZ, T VISIT INTERNAL ERLIN F 15 MED MINUTES OFFICE 28711 [facility] MCKEMIE OUTPATIEN 9 9 WILLIAMS GONZALEZ, T VISIT INTERNAL ERLIN F 15 MED MINUTES OFFICE 30593 [place] MCKEMIE OUTPATIEN 9 9 [facility] GONZALEZ, T VISIT INTERNAL ERLIN F 15 MED MINUTES [facility] - 9 9 [facility] INC T OFFICE 30543 [facility] OUTPATIEN 9 9 [facility] T VISIT INC 25 MINUTES [facility] - 9 9 [facility]PATIEN INC T OFFICE 58984 ZAYNAB WORTHY, OUTPATIEN 9 9 ALEM FERRARA T VISIT 40 MINUTES OFFICE 84958 [facility] MCKEMIE OUTPATIEN 9 9 [facility] GONZALEZ Shivani VISIT INTERNAL ERLIN F 15 MED MINUTES OFFICE 13134 ALBA OSBORNSTPRISCA OUTPATIEN 9 9 , BRENDAN CARDONA T VISIT 15 MINUTES [facility] - 9 9 [facility] INC T OFFICE 52408 [place] MCKEMIE OUTPATIEN 9 9 [facility] GONZALEZ Shivani VISIT INTERNAL ERLIN F 15 MED MINUTES [facility] - 9 9 [facility] OUTPATIEN INC T OFFICE 09554 CARDIOVAS KELVIN, OUTPATIEN 8 8 PAMELA T VISIT THORACIC 15 ASSOC PSC MINUTES OFFICE 24403 [facility] MCKEMIE OUTPATIEN 8 8 [facility] Shivani VISIT INTERNAL ERLIN F 15 MED MINUTES [facility] - 8 8 [facility] INC T OFFICE 41269 [facility] MCKEMIE OUTPATIEN 8 8 [facility] Shivani VISIT INTERNAL ERLIN F 15 MED MINUTES OFFICE 69947 [facility] BROWNE OUTPATIEN 8 8 [facility] [place] Shivani VISIT HOSPITAL 15 PROF SERV MINUTES [facility] - 8 8 [facility] T [facility] - 8 8 [facility] INC T OFFICE 99273 [facility] MCKEMIE OUTPATIEN 8 8 Shivani KRAMER JR VISIT INTERNAL ERLIN F 15 MED MINUTES OFFICE 69614 CARDIOVAS KELVIN, OUTPATIEN 8 8 PAMELA T VISIT THORACIC 15 ASSOC PSC MINUTES [facility]OS[facility] - 8 8 [facility]IEN INC T OFFICE 66269 [facility] PAVAN, OUTPATIEN 8 8 [facility] 15 PROF SERV MINUTES EMERGENCY 95875 A[facility]DRA JEFF, [address] [facility] T VISIT PROF SERV MODERATE SEVERITY EMERGENCY 03309 [facility]A JEFF, DEPT 8 8 [facility] VISIT [facility] HIGH PROF SERV SEVERITY& THREAT FUNCJ EMERGENCY 00736 A[facility]DRA ORTEGA, 8 8 [facility] T VISIT PROF SERV MODERATE SEVERITY [facility] - 8 8 [facility]EN [facility] - 8 8 [facility] 8 [facility] T OFFICE 66779 [place] [facility] 8 8 Shivani KRAMER JR VISIT INTERNAL ERLIN F 15 MED MINUTES OFFICE 95862 CARDIOVAS CARDIOVAS [facility] 8 8 ULAR & CORINNAAR & T VISIT THORACIC THORACIC 15 ASSOC PSC ASSOC PSC MINUTES EMERGENCY 35638 [facility] 8 8 [facility] T VISIT MODERATE SEVERITY [facility] - [facility] UN[facility]ERS[facility] - 8 8 [facility] T EMERGENCY 23491 [facility] 8 8 [facility] T VISIT LOW/MODER SEVERITY [facility] - 8 8 [facility] T OFFICE 75619 [place] FELICIANO [facility] 8 8 WILLI[facility] Parrish VISIT INTERNAL 15 MED MINUTES [facility] - 8 8 [facility] - 8 8 [facility] - 8 8 [facility] EMERGENCY 00885 [place] 8 8 [facility] T VISIT LOW/MODER SEVERITY OFFICE 52326 RICK GUADRADO 8 8 WILLI[facility] Rodriguez T VISIT INTERNAL 15 MED MINUTES [facility] - 8 8 [facility] OUTPATIEN INC T OFFICE 78120 ALFONSO CABRERA 8 8 Shivani KRAMER JR VISIT INTERNAL [facility] 15 MED MINUTES
--- OUTSIDE RECORDS SUMMARY | 2017-03-18 17:41 | External Medical Summary Rpt ---
Author Author , JIM Organization JIM Address Unknown Phone [email or web address] Care Team Providers Care Dry Man Name Role Phone FAUSTINO COTE, FAUSTINO Unavailable [...] CAROLE FALLIS RONI, FALLIS Unavailable Unavailable RONI [employer]EL[employer] & Unavailable Unavailable ORTHOTI, VBA [employer]EL[employer] & ORTHOTI [employer]EL[employer] & Unavailable Unavailable ORTHOTI, VBA [employer]EL[employer]HE[employer] & ORTHOTI [facility] Unavailable Unavailable INC, [facility] QUINCY, NYDIA, QUINCY, Unavailable Unavailable NYDIA [facility], Unavailable Unavailable [facility], Unavailable Unavailable [facility] IMAM MOH, IMAM MOH Unavailable Unavailable JAMES BROWNE KEE, Unavailable Unavailable JAMES Willingham [facility], Unavailable Unavailable [facility], [facility] Un[facility] Unavailable Unavailable HOLDING, [facility] Unavailable Unavailable HOLDINGS, [facility] Unavailable Unavailable INTERNAL MED, [facility] INTERNAL MED [facility] ROCAEL, CALABERSE Unavailable Unavailable ROCAEL [facility] Unavailable Unavailable SERVICES, [facility] ZAYNAB WORTHY Unavailable Unavailable ZAYNAB [...] ANNKARIME MCLAUGHLIN, Unavailable Unavailable ANN, KARIME H [facility], Unavailable Unavailable [facility] USERY AND, USERY AND Unavailable Unavailable KEYUR WRIGHT Unavailable Unavailable Purpose Continuity of Care Document - 06-08-2007 through 2016 Problems Code Diagnosis DOS Provider Status [id number] ACQUIRED 12-22-2016 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 BILATERAL [id number] VITREOUS 08-27-2016 [facility], N RIGHT EYE P[facility]. [id number] VITREOUS 08-27-2016 [facility], [facility] LEFT EYE [facility] J069 ACUTE UPPER 06-02-2016 FAUSTINO COTE RESPIRATORY INFECTION UNSPECIFIED [id number] PAIN IN 04-27-2016 [facility] RIGHT LEG HOME MEDICAL EQUIPME [id number] PAIN IN 04-27-2016 [facility] LEFT LEG HOME MEDICAL EQUIPME [id number] COMPLETE 04-27-2016 [facility] TRAUM AMP HOME BETWN KNEE MEDICAL ANKLE LT EQUIPME LEG SEQ Z9710 PRESENCE 04-27-2016 [facility] ARTIFICIAL HOME LIMB MEDICAL COMPLETE EQUIPME PARTIAL UNS M150 PRIMARY 11-15-2015 FAUSTINO COTE GENERALIZED OSTEOARTHRI TIS M1611 UNILATERAL 10-30-2015 [place] [facility] IM[facility] ASS TIS RIGHT HIP I69258 PAIN IN 10-30-2015 [place] [facility] H3531 NONEXUDATIV 08-22-2015 [facility], AGE-RELATED P.S.C. 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 K449 DIAPHRAGMAT 06-26-2015 [place] IC HERNIA MEDICAL W/O IMAGING ASS OBSTRUCTION OR GANGRENE Z122 ENCOUNTER 06-26-2015 [place] SCREENING MEDICAL MALIG IMAGING ASS NEOPLASM RESPIR ORGANS L0889 OTH SPEC 06-14-2015 DERMATOLOGY LOCAL INFECTIONS CONSULTANTS THE SKIN & PSC SUBQ TISSUE L219 SEBORRHEIC 06-14-2015 DERMATOLOGY DERMATITIS UNSPECIFIED CONSULTANTS PSC 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 UNSPECIFIED [id number] UNS OPEN 06-13-2015 [facility] WOUND UNS [facility] TOES W/O INC DAMAGE NAIL INITIAL B078 OTHER VIRAL 06-12-2015 [facility] RONI WARTS I890 LYMPHEDEMA 06-12-2015 [facility] RONI NOT ELSEWHERE CLASSIFIED M2570 OSTEOPHYTE 06-12-2015 [facility] RONI UNSPECIFIED JOINT P70048 PAIN IN 06-12-2015 [facility] RONI LEFT FOOT K5900 CONSTIPATIO 05-17-2015 COM[facility]ED N PHYSICIANS UNSPECIFIED LA Y72970 PRIMARY 05-17-2015 [place] OSTEOARTHRI MEDICAL TIS LEFT IMAGING ASS ANKLE AND FOOT B04604 UNSPECIFIED 05-17-2015 [facility] ACQUIRED [facility] DEFORMITY INC OF LEFT LOWER LEG M7732 CALCANEAL 05-17-2015 [facility] LEFT MEDICAL FOOT IMAGING ASS R40748P COMPLETE 04-30-2015 [facility] TRAUM AMP ARTIFICIAL BETWN KNEE LIMB C ANKLE UNS LEG INIT Z09 ENC F/U 03-22-2015 DERMATOLOGY EXAM AFTR CMPL TX OTH CONSULTANTS THAN ELLIE PSC NEOPLSM 17055 UNS 02-14-2015 [facility] GASTRITIS&G PHYSICIANS ASTRODUODIT GROUP IS W/O MENTION HEMORR 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 UNSPECIFIED MED SITE 58138 MIGRAINE 02-08-2015 [facility] UNSP W/O VALLEY INTRACT W/O INTERNAL STATUS MED MIGRAINOSUS 08419 REFLUX 02-08-2015 [facility] ESOPHAGITIS VALLEY INTERNAL MED 22675 UNSPECIFIED 02-08-2015 [facility] VALLEY ARTHROPATHY INTERNAL MULTIPLE MED SITES 17891 OTHER 02-08-2015 [facility] ABNORMAL INVERNESS GLUCOSE INTERNAL MED 2859 UNSPECIFIED 02-02-2015 [facility] ANEMIA PHYSICIANS GROUP 14897 OTHER 02-02-2015 [facility] ESOPHAGITIS MATT & DUBILIER 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 67790 OTHER SPEC 02-02-2015 [facility] GASTRITIS MATT & WITHOUT DUBILIER MENTION HEMORRHAGE 5533 DIAPHRAGMAT 02-02-2015 [facility] CONSTANTINE W/O PHYSICIANS MENTION GROUP OBSTRUCTION /GANGREN V1003 PERSONAL 02-02-2015 [facility] HISTORY PHYSICIANS MALIGNANT GROUP NEOPLASM ESOPHAGUS 2858 OTHER 01-22-2015 [facility] SPECIFIED PHYSICIANS ANEMIAS GROUP 2809 UNSPECIFIED 01-16-2015 [facility] IRON VALLEY DEFICIENCY INTERNAL ANEMIA MED 45192 ESOPHAGEAL 01-16-2015 [facility] REFLUX VALLEY INTERNAL MED 7248 OTHER 01-16-2015 [facility] SYMPTOMS VALLEY REFERABLE INTERNAL TO BACK MED 84753 DIAB W/O 12-29-2014 [facility] COMP TYPE PHYSICIANS [...] ARTIFICIAL BELW KNEE LIMB C W/O COMP 00794 PAIN IN 09-20-2014 [facility] JOINT, [facility] LOWER LEG INC 47675 OTHER LATE 09-20-2014 [facility] AMPUTATION [facility] STUMP INC COMPLICATIO N NEC 78079 NONEXUDATIV 03-15-2014 [facility] E SENILE JAM MACULAR DEGENERATIO N RETINA 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 7242 LUMBAGO 11-12-2013 [facility] 7243 SCIATICA 11-12-2013 [facility] INC V5869 LONG-TERM 09-12-2013 [facility] (CURRENT) [facility] USE OF INC OTHER MEDICATIONS 4293 CARDIOMEGAL 08-25-2013 [place] Y [facility]ICAL [facility] V6759 OTHER 08-25-2013 [place] FOLLOW-UP MEDICAL EXAMINATION IMAGING ASS OTHER V676 COMBINED 08-25-2013 [place] TREATMENT MEDICAL FOLLOW-UP IMAGING ASS EXAMINATION V711 OBSERVATION 08-25-2013 [facility] FOR [facility] SUSPECTED INC MALIGNANT NEOPLASM 4619 ACUTE 04-17-2013 [facility] SINUSITIS, EMERGENCY UNSPECIFIED SERVICES 59457 OTHER 04-17-2013 [facility] DISEASES OF EMERGENCY NASAL SERVICES CAVITY AND SINUSES 7291 UNSPECIFIED 04-17-2013 [place] MYALGIA [facility] MYOSITIS 7862 COUGH 04-17-2013 [facility] V148 PERSONAL 04-17-2013 [facility] HISTORY [facility] ALLERGY OTH INC SPEC MEDICINAL AGTS 46747 NUCLEAR 03-16-2013 [facility] SCLEROSIS JAM 6929 CONTACT 12-03-2012 [facility] DERMATITIS& VALLEY OTHER INTERNAL ECZEMA DUE MED UNSPEC CAUSE V103 PERSONAL 09-17-2012 [place] HISTORY OF MEDICAL MALIGNANT IMAGING ASS NEOPLASM OF BREAST V8741 PERSONAL 09-17-2012 [place] HISTORY OF MEDICAL ANTINEOPLAS IMAGING ASS TIC [...] HOSP ESOPHAGUS INC 5920 CALCULUS OF 02-25-2012 [place] [facility]NEY [facility] 12600 DEHYDRATION 11-21-2011 [facility] INVERNESS INTERNAL MED 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 4778 ALLERGIC 09-05-2011 [facility] RHINITIS VALLEY DUE TO INTERNAL OTHER MED ALLERGEN 78670 UNSPECIFIED 09-01-2011 [place] [facility] ESOPHAGITIS [facility]OUND[facility] 61630 ACUTE 09-01-2011 PATHOLOGY & GASTRITIS CYTOLOGY WITHOUT LAB MENTION OF HEMORRHAGE 98591 ATROPHIC 09-01-2011 PATHOLOGY & GASTRITIS CYTOLOGY WITHOUT LAB MENTION OF HEMORRHAGE 61729 OTHER 08-13-2011 [place] DISEASES OF MEDICAL LUNG NOT IMAGING ASS ELSEWHERE CLASSIFIED 66276 PAIN IN 05-23-2011 [place] JOINT MEDICAL PELVIC IMAGING ASS REGION AND THIGH 57296 UNSPECIFIED 05-23-2011 [place] [facility] OSTEOPOROSI IMAGING ASS S 7937 NONSPC ABN 05-23-2011 [place] FINDNG RAD MEDICAL & OTH EXM IMAGING ASS MUSCULSKELT L SYS 22136 DYSPHAGIA 05-19-2011 [place] [facility] UNSPECIFIED SERV FOUNDATIO 31140 ACUTE 09-02-2010 PATHOLOGY & ESOPHAGITIS CYTOLOGY LAB 74368 ULCER OF 09-02-2010 PATHOLOGY & ESOPHAGUS CYTOLOGY WITHOUT LAB BLEEDING 61469 ULCER OF 09-02-2010 [place] [facility] ESOPHAGUS SERV WITH FOUNDATIO BLEEDING 7934 NONSPECIFIC 09-02-2010 [place] [facility] ABN SERV FINDING RAD FOUNDAT[facility] & OTH EXAM GI TRACT 63280 FLUSHING 08-29-2010 [place] [address] UNSPECIFIED 08-16-2010 [facility] ARTHROPATHY INTERNAL , LOWER LEG MED 7823 EDEMA 08-05-2010 [facility] INTERNAL MED 54794 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 INC 5693 HEMORRHAGE 03-18-2010 [facility] OF RECTUM [facility] AND ANUS INC 03225 OTHER 03-18-2010 [facility] SPECIFIED [facility] DISORDER OF INC INTESTINES 5781 BLOOD IN 03-18-2010 [facility] STOOL SERV FOUNDAT[facility] 84194 UNSPECIFIED 03-06-2010 [place] [address] VITREOUS 03-06-2010 [facility] DEGENERATIO JAM N V551 ATTENTION 12-27-2009 [facility] TO [facility] GASTROSTOMY INC 67596 UNSPECIFIED 05-25-2009 [facility] VALLEY CONJUNCTIVI INTERNAL TIS MED 1508 MALIGNANT 04-17-2009 [facility] NEOPLASM [facility] OTHER SPEC INC PART ESOPHAGUS 94745 UNSPEC 04-09-2009 [facility] POLYARTHROP VALLEY ATHY/POLYAR INTERNAL THRIT MX MED SITES 7069 UNSPECIFIED 03-13-2009 NEW DISEASE OF [facility] PSC GLANDS V762 SCREENING 01-25-2009 PATHOLOGY & FOR CYTOLOGY MALIGNANT LAB NEOPLASM OF THE CERVIX 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 47700 OTHER 08-18-2008 [facility] MALAISE AND [facility] FATIGUE INC 03617 PERIPH 08-16-2008 [facility], CHORIORETIN ALEM AL SCARS 6829 CELLULITIS 06-26-2008 [facility] AND ABSCESS VALLEY OF INTERNAL UNSPECIFIED MED SITE 2110 BENIGN 05-22-2008 [place] [facility] NEOPLASM OF SERV ESOPHAGUS FOUNDATIO 7804 DIZZINESS 03-06-2008 [facility] AND VALLEY GIDDINESS INTERNAL MED 41589 OTHER 2007 [facility] DYSPHAGIA [facility] INC 2639 UNSPECIFIED 10-24-2007 [facility] PROTEIN-AMANDO ORIE MALNUTRITIO N 89242 MUCOSITIS 09-20-2007 [facility] DUE TO VALLEY ANTINEOPLAS INTERNAL TIC THERAPY MED 5990 URINARY 09-20-2007 [facility] TRACT VALLEY INFECTION INTERNAL SITE NOT MED SPECIFIED 35920 VOMITING 09-17-2007 [facility] 12151 SWELLING OF 09-13-2007 [facility] PROF SERV V5811 ENCOUNTER 09-08-2007 [facility] FOR [facility] ANTINEOPLAS INC TIC CHEMOTHERAP Y V153 PERS HX 07-26-2007 [facility] PRESENTING [facility] V5881 FITTING AND 07-26-2007 [facility] OF VASCULAR CATHETER 9961 MECH COMP 07-23-2007 [facility] VASCULAR DEVICE IMPLANT&GRA FT V441 GASTROSTOMY 07-23-2007 [facility] 22804 NAUSEA WITH 06-29-2007 [facility] VOMITING [facility] INC 89055 SHORTNESS 06-24-2007 [facility] OF BREATH [facility] INC 34674 MECHANICAL 06-19-2007 [facility] COMPLICATIO [facility] N [...] DOS Code Location Performer Comment PROSTHETI L8420 VBA DEVELOPER VBA DEVELOPER C SOCK 7 PROSTHETI PROSTHETI MULTIPLE CS & CS & PLY BELOW ORTHOTI ORTHOTI KNEE EACH COMPREHEN 40790 COMBINED COMBINED SIVE 7 PHYSICIAN PHYSICIAN METABOLIC S LA S LA PANEL 25 25028 COMBINED COMBINED HYDROXY 7 PHYSICIAN PHYSICIAN INCLUDES S LA S LA FRACTIONS IF PERFORMED OPHTHALMO 04929 [facility] EYE EXTENDED CENTER, RETINAL P.S.C. DRAWING I&R 1ST DETERMINA 07591 [facility] DUENAS 7 EYE REFRACTIV CENTER, E STATE P.S.C. INJECTION J0696 FAUSTINO HARMON 6 ROCAEL ROCAEL CEFTRIAXO NE SODIUM PER 250 MG HIGH K0004 [facility] MARTI STRENGTH 6 HOME HOME [facility] EQUIPME EQUIPME WHEELCHAI R HIGH K0004 MARTI MARTI STRENGTH 6 [facility] EQUIPME EQUIPME WHEELCHAI R DETERMINA 49195 [place] DUENAS 6 EYE REFRACTIV CENTER, E [...] HT EQUIPME EQUIPME WHEELCHAI R RADEX HIP 71212 [place] FILIPPO 6 MEDICAL PIERRE UNILATERA IMAGING L WITH ASS PELVIS 2-3 VIEWS HIGH K0004 MARTI MARTI STRENGTH 6 [facility] EQUIPME EQUIPME WHEELCHAI R HIGH K0004 MARTI MAYRELL STRENGTH 6 HOME HOME [facility] EQUIPME [place]IP[place] R 23085 COMBINED COMBINED HYDROXY 6 PHYSICIAN PHYSICIAN INCLUDES Chase WELCH LA FRACTIONS IF PERFORMED HIGH K0004 [facility] KIDD STRENGTH 6 HOME HOME [facility] EQUIPME EQUIPME WHEELCHAI R DETERMINA 81320 [facility] 6 EYE EYE REFRACTIV CENTER, CENTER, E STATE P.S.C. P.S.C. OPHTHALMO 77410 [place] ZAYNAB HANKS 6 EYE JAM EXTENDED CENTER, RETINAL P.S.C. DRAWING I&R 1ST HIGH K0004 MARTI KIDD STRENGTH 6 HOME HOME [facility] EQUIPME EQUIPME [facility] RADIOLOGI 38458 [place] NOBLE ALL C 6 MEDICAL EXAMINATI IMAGING ON PELVIS ASS 1/2 VIEWS BONE 99979 [place] DICKEY ALL &/JOINT 6 MEDICAL IMAGING IMAGING WHOLE ASS BODY HIGH K0004 M[facility]I KIDD STRENGTH 6 HOME HOME [facility] EQUIPME EQUIPME [facility] [address] [facility] M[facility] UREA 6 [facility] NITROGEN INC INC QUANTITAT KONSTANTIN CT THORAX 89321 [place] BEINE 6 MEDICAL PRAFUL W/CONTRAS IMAGING T ASS MATERIAL COLLECTIO 15267 [facility] N VENOUS 6 [facility]OS[facility] BLOOD INC INC VENIPUNCT URE LOCM Q9967 A[facility] [phone] 6 [facility] MG/ML INC INC IODINE CONCENTRA TION PER ML CREATININ 75208 [facility] E BLOOD 6 [facility] INC INC NON-INVAS 39645 [facility] KONSTANTIN 6 MEM HOS[facility] PHYSIOLOG INC INC IC STUDY EXTREMITY 3 LEVLS DESTRUCTI 70897 [facility] MAURICIO ON BENIGN 6 RONI CHRISTIAN LESIONS 15/> HIGH K0004 M[facility]I KIDD STRENGTH 5 HOME HOME [facility] [place] [address] COMBINED COMBINED THYROID 5 PHYSICIAN PHYSICIAN STIMULATI [place] [address] COMBINED COMBINED BLOOD/URI 5 PHYSICIAN PHYSICIAN C ACID S LA S LA RADEX 33502 [place] DICKEY ALL FOOT 5 MEDICAL COMPLETE IMAGING MINIMUM 3 ASS VIEWS ANTINUCLE 30258 [facility] AR 5 SAI SAI ANTIBODIE HOLDINGS HOLDINGS S GLORY RHEUMATOI 34278 COMBINED COMBINED D FACTOR 5 PHYSICIAN PHYSICIAN QUALITATI S LA S LA VE SEDIMENTA 79264 COMBINED COMBINED TION RATE 5 PHYSICIAN PHYSICIAN [...] MEDICAL HT EQUIPME EQUIPME WHEELCHAI R COMPREHEN 19126 [facility] SIVE 5 [facility]OS[facility] METABOLIC INC INC PANEL HEMOGLOBI 99782 [facility] MOR[facility]IS N 5 [facility]OS[facility] GLYCOSYLA INC INC BEAU A1C COLLECTIO 13627 [facility] N VENOUS 5 MEM HOS[facility]OS[facility] BLOOD INC INC VENIPUNCT URE BLOOD 29709 [facility] COUNT 5 [facility]OS[facility] COMPLETE INC INC AUTO&AUTO DIFRNTL WBC LIPID 56749 [facility] MORIRS PANEL 5 [place] [address] [facility] CALABRESE SURG 5 MATT & ROCAEL PATHOLOGY DUBILIER GROSS&[place] [address] [facility] INFUSION 5 [facility] THERAPY INC INC PROPHYLAX IS/DX EA HOUR EGD 95663 [facility] BLANCA TOD TRANSORAL 5 PHYSICIAN BIOPSY S GROUP SINGLE/[place] [address] [facility] INFUSION 5 MEM [facility] THERAPY/P INC INC ROPHYLAXI S /DX 1ST [place] [address] [place] [address] [facility] M[facility] [id number] 5 [facility] [place] [address] [facility] FOLIC 5 [facility] [place] [address] [facility] IRON 5 [facility] INC INC BLOOD 98489 A[facility] OCCULT 5 [facility] PEROXIDAS INC INC E ACTV QUAL FECES 1-3 SPEC IRON 20611 [facility] BINDING 5 [facility] CAPACITY INC INC COLLECTIO 77378 [facility] ALEXANDRA N VENOUS 5 MEM HOS[facility]OS[facility] BLOOD INC INC VENIPUNCT URE BLOOD 39904 [facility] COUNT 5 [facility] COMPLETE INC INC AUTO&[place] [address] [facility] FERRITIN 5 [facility] H[facility]OS[facility] INC INC 25 52387 COMBINED COMBINED HYDROXY 5 PHYSICIAN PHYSICIAN INCLUDES S LA S LA FRACTIONS IF PERFORMED LIPID 09711 COMBINED COMBINED PANEL 5 PHYSICIAN PHYSICIAN S LA S LA BLOOD 30282 COMBINED COMBINED COUNT 5 PHYSICIAN PHYSICIAN COMPLETE S LA S LA AUTO&AUTO DIFRNTL WBC HEMOGLOBI 23130 COMBINED COMBINED N 5 PHYSICIAN PHYSICIAN GLYCOSYLA S LA S LA BEAU A1C COMPREHEN 87932 COMBINED COMBINED SIVE 5 PHYSICIAN PHYSICIAN METABOLIC S LA S LA PANEL PROSTHETI L8420 BLUE BLUE C SOCK 5 GRASS GRASS MULTIPLE ARTIFICIA ARTIFICIA PLY BELOW L LIMB C L LIMB C KNEE EACH PROSTHETI L8400 BLUE BLUE C SHEATH 5 GRASS GRASS BELOW ARTIFICIA ARTIFICIA KNEE EACH L LIMB C L LIMB C BLOOD 42104 [facility] COUNT 5 [facility]OS[facility] COMPLETE INC INC AUTO&AUTO DIFRNTL WBC LIPID 57654 [facility] PANEL 5 [facility] INC INC 25 31916 [facility] HYDROXY 5 [facility] INCLUDES INC INC FRACTIONS IF PERFORMED COMPREHEN 13115 [facility] SIVE 5 [facility] METABOLIC INC INC PANEL HEMOGLOBI 94077 A[facility] N 5 [facility] GLYCOSYLA INC INC BEAU A1C COLLECTIO 61948 A[facility] N VENOUS 5 [facility] BLOOD INC INC VENIPUNCT URE RADIOLOGI 47759 [facility] SARKAR 5 MEDICAL PRAFUL EXAMINATI IMAGING ON KNEE 3 ASS VIEWS COLLECTIO 11516 [facility] N VENOUS 5 [facility] BLOOD INC INC VENIPUNCT URE COMPREHEN 95370 A[facility] SIVE 5 [facility] METABOLIC INC INC PANEL LIPID 70898 [facility] PANEL 5 [facility] INC INC BLOOD 02845 [facility] COUNT 5 [facility] COMPLETE INC INC AUTO&AUTO DIFRNTL WBC OPHTHALMO 40371 Z[facility] WORTHY SCPY 4 JAM JAM EXTENDED RETINAL DRAWING I&R 1ST DETERMINA 58887 ZAYNAB WORTHY TION 4 JAM JAM REFRACTIV E STATE ADDITION L5668 BLUE BLUE LOW 4 GRASS GRASS EXTREM ARTIFICIA ARTIFICIA BELOW L LIMB C L LIMB C KNEE MOLDED DIST CUSHN ADD LW L5665 BLUE BLUE EXTRM 4 GRASS GRASS SOCKT ARTIFICIA ARTIFICIA INSRT L LIMB C L LIMB C MXIDUROME TER BELW KNEE LIPID 42979 [facility] PANEL 4 [facility] INC INC BLOOD 56081 [facility] COUNT 4 [facility] COMPLETE INC INC AUTO&AUTO DIFRNTL WBC COMPREHEN 06933 A[facility] SIVE 4 [facility] METABOLIC INC INC PANEL COLLECTIO 28674 [facility] N VENOUS 4 [facility] BLOOD INC INC VENIPUNCT URE PROSTHETI L8420 BLUE BLUE C SOCK 4 GRASS GRASS MULTIPLE ARTIFICIA ARTIFICIA PLY BELOW L LIMB C L LIMB C KNEE EACH PROSTHETI L8400 BLUE BLUE C SHEATH 4 GRASS GRASS BELOW ARTIFICIA ARTIFICIA KNEE EACH L LIMB C L LIMB C RADEX 69881 [place] FILIPPO SPINE 4 MEDICAL PIERRE LUMBOSACR IMAGING AL ASS MINIMUM 4 VIEWS DETERMINA 60173 Z[facility] WORTHY TION 4 IAN SOSA REFRACTIV E STATE OPHTHALMO 69130 ZAYNAB WORTHY SCPY 4 IAN SOSA EXTENDED RETINAL DRAWING I&[place] 1ST [place] [address] [facility] INFUSION 4 [facility] THERAPY INC INC PROPHYLAX IS/DX EA HOUR ESOPHAGOG 71852 [place] [facility] ASTRODUOD 4 MEDICAL ENOSCOPY [place] [address] [facility] INFUSION 4 [facility] THERAPY/P INC INC ROPHYLAXI S /DX [address] [place] [address] [facility] MAXILLOFA 4 [facility] CIAL W/O IMAGING CONTRAST ASS MATERIAL CT SOFT 14068 [facility] TISSUE 4 [facility] NECK W/O IMAGING CONTRAST ASS MATERIAL COLLECTIO 74145 [facility]DR[facility] N VENOUS 4 [facility] BLOOD INC INC VENIPUNCT URE CT THORAX 98116 [place] FILIPPO W/O 4 MED[facility] CONTRAST IMAGING MATERIAL ASS 3D 21427 [facility] RENDERING 4 MEDICAL [facility] IMAGING W/INTERP& ASS POSTPROC DIFF WORK STATION COMPREHEN 27861 A[facility]ANDR[facility] M[facility]IS SIVE 4 [facility] METABOLIC INC INC PANEL BLOOD 52556 ALEXANDRA M[facility]RIS COUNT 4 [facility] COMPLETE INC INC AUTO&AUTO DIFRNTL WBC LIPID 42376 [facility] PANEL 4 [facility] INC INC CREATININ 82534 A[facility]ANDR[facility] E BLOOD 4 [facility] INC INC COLLECTIO 76880 [facility] M[facility] N VENOUS 4 [facility] [place] [address] A[facility]ANDRA M[facility]RIS UREA 4 [facility] NITROGEN INC INC QUANTITAT KONSTANTIN CUL BACT 84953 ALEXANDRA M[facility]RIS XCPT 3 [facility] URINE INC INC BLOOD/STO OL AEROBIC ISOL RADIOLOGI 07285 [place] BARKLEY C EXAM 3 MEDICAL PIER[facility] CHEST 2 IMAGING VIEWS ASS FRONTAL&L ATERAL IAADI 65903 [facility] INFLUENZA 3 [facility] B VIRUS INC INC IAADI 23786 A[facility] INFFLUENZ 3 [facility] [place] [address] A[facility]AN[facility] M[facility]RIS STREPTOCO 3 [facility] CCUS INC INC GROUP A OPHTHALMO 12625 ZAYNAB WORTHY SCPY 3 JAM JAM EXTENDED RETINAL DRAWING I&R 1ST DETERMINA 16752 ZAYNAB WORTHY TION 3 JAM JAM REFRACTIV E STATE COLLECTIO 44396 ALEXANDRAREHANA MORRIS N VENOUS 3 [facility] BLOOD INC INC VENIPUNCT URE RADIOLOGI 78368 ALEXANDRA ALEXANDRA C EXAM 3 [facility] CHEST 2 INC INC VIEWS FRONTAL&L ATERAL BLOOD 86731 ALEXANDRA M[facility]RIS COUNT 3 [facility] COMPLETE INC INC AUTO&AUTO DIFRNTL WBC COMPREHEN 68753 A[facility] SIVE 3 [facility] METABOLIC INC INC PANEL OPHTHALMO 38570 ZAYNAB WORTHY SCPY 3 JAM JAM EXTENDED RETINAL DRAWING I&R 1ST DETERMINA 75686 ZAYNAB WORTHY TION 3 JAM JAM REFRACTIV E STATE COLLECTIO 68222 ALEXANDRA MORRIS N VENOUS 3 [facility] BLOOD INC INC VENIPUNCT [facility]RE [facility] THORAX 41184 [facility] W/O 3 MEDICAL [facility] CONTRAST IMAGING MATERIAL ASS 3D 27157 [facility] RENDERING 3 MEDICAL PIERRE IMAGING W/INTERP& [place] [address] ALEXANDRA M[facility]RIS UREA 3 [facility] NITROGEN INC INC QUANTITAT KONSTANTIN CREATININ 60968 ALEXANDRA De Luna BLOOD 3 [facility] INC INC ESOPHAGOG 57193 [place] MAHSA ASTRODUOD 3 MEDICAL ENOSCOPY [place] [address] ALEXAN[facility] MORRIS INFUSION 3 [facility] THERAPY INC INC PROPHYLAX IS/DX EA HOUR COLLECTIO 50676 COMBINED COMBINED N VENOUS 3 PHYSICIAN PHYSICIAN [place] [address] COMBINED COMBINED THYROID 3 PHYSICIAN PHYSICIAN STIMULATI S LA S LA NG HORMONE TSH COMPREHEN 81247 COMBINED COMBINED SIVE 3 PHYSICIAN PHYSICIAN METABOLIC S LA S LA PANEL LIPID 63726 COMBINED COMBINED PANEL 3 PHYSICIAN PHYSICIAN S LA S LA BLOOD 98654 COMBINED COMBINED COUNT 3 PHYSICIAN PHYSICIAN COMPLETE S LA S LA AUTO&AUTO DIFRNTL WBC CATHETER C1726 ALEXANDRA MORRIS BALLOON 2 [facility] [place]AT[place] [address] ALEXANDRA MORRIS INFUSION 2 [facility] THERAPY/P INC INC ROPHYLAXI S /DX 1ST TO 1 HR EGD 97501 [place] MAHSA BALLOON 2 MEDICAL DILATION SERV ESOPHAGUS FOUNDATIO <30 [place] [address] ALEXANDRA ALEXANDRA INFUSION 2 [facility] THERAPY INC INC PROPHYLAX IS/DX EA HOUR IM ADM 53008 [place] M[place] PRQ ID 2 [facility] OPAL SUBQ/IM INTERNAL NJXS 1 MED VACCINE TDAP 76127 [place] VACCINE 7 2 [facility] OPAL YRS/> IM INTERNAL MED PPSV23 80306 [place] VACCINE 2 2 [facility] OPAL YRS OR INTERNAL OLDER FOR MED SUBQ/IM USE ADMINISTR G0008 [place] ATION OF 2 [facility] INFLUENZA INTERNAL INTERNAL VIRUS MED MED VACCINE INFLUENZA Q2038 [place] VACC 2 [facility] SPLIT INTERNAL INTERNAL VIRUS 3 MED MED YRS & > [place] [address] [place] ABDOMEN & 2 MEDICAL PIER[place] PELVIS IMAGING W/O ASS CONTRAST MATERIAL 3D 98818 [place] RENDERING 2 MEDICAL PIER[place] IMAGING W/INTERP& ASS POSTPROC DIFF WORK STATION CT THORAX 96730 [facility] 2 MEDICAL [facility] W/[place] [address] ALEXANDRA MORRIS ABDOMEN & 2 [facility] PELVIS INC INC W/CONTRAS T MATERIAL LOCM Q9967 ALEXANDRA MORRIS [phone] [facility] MG/ML INC INC IODINE CONCENTRA TION PER ML BLOOD 71571 ALEXANDRA MORRIS COUNT 2 [facility] COMPLETE INC INC AUTO&AUTO DIFRNTL WBC COLLECTIO 62421 ALEXANDRA MORRIS N VENOUS 2 [facility] BLOOD INC INC VENIPUNCT URE COMPREHEN 90868 ALEXANDRA MORRIS SIVE 2 [facility] [place] [address] ALEXANDRA MORRIS INFUSION 2 [facility] THERAPY/P INC INC ROPHYLAXI S /DX 1ST TO 1 HR EGD 50160 [place] MAHSA BALLOON 2 MEDICAL DILATION SERV ESOPHAGUS FOUNDATIO <30 [place] [address] ALEXANDRA MORRIS INFUSION 2 [facility] THERAPY INC INC PROPHYLAX IS/DX EA HOUR CATHETER C1726 ALEXANDRA MORRIS BALLOON 2 [facility] DILATATIO INC INC N NON-VASCU LAR OPHTHALMO 97440 WORTHY WORTHY SCPY 2 IAN JAM EXTENDED RETINAL DRAWING I&R 1ST DETERMINA 39080 ZAYNAB WORTHY TION 2 IAN SOSA REFRACTIV E STATE OPHTH 50344 WORTHY ZAYNAB MEDICAL 2 IAN JAM XM&EVAL COMPRHNSV ESTAB PT 1/> COMPREHEN 84740 ALEXANDRA MORRIS SIVE 2 [facility] METABOLIC INC INC PANEL COLLECTIO 78862 ALEXANDRA MORRIS N VENOUS 2 [facility] BLOOD INC INC VENIPUNCT URE BLOOD 69516 ALEXANDRA MORRIS COUNT 2 [facility] COMPLETE INC INC AUTO&AUTO DIFRNTL WBC CATHETER C1726 ALEXANDRA SANTAON BALLOON 2 [facility] DILATATIO INC INC N NON-VASCU [place]AR EGD 25300 [place] MAHSA [place] 2 MEDICAL DILATION SERV ESOPHAGUS FOUNDATIO <30 [place] [address] ALEXANDRA MORRIS INFUSION 2 [facility] THERAPY INC [place] [address] ALEXANDRA MORRIS INFUSION 2 [facility] THERAPY/P INC INC ROPHYLAXI S /DX 1ST TO 1 [place] [address] ALEXANDRA MORRIS INFUSION 2 [facility] THERAPY/P INC INC ROPHYLAXI S /DX 1ST TO 1 [place] [address] ALEXANDRA MORRIS INFUSION 2 [facility] THERAPY INC INC PROPHYLAX IS/DX [place] EGD 46412 [place] MAHSA B[place] 2 MEDICAL DILATION SERV ESOPHAGUS FOUNDATIO <30 MM DIAM CATHETER C1726 ALEXANDRA MORRIS BALLOON 2 [facility] DILATATIO INC INC N NON-VASCU LAR OPHTHALMO 54674 ZAYNAB WORTHY SCPY 2 JAM JAM EXTENDED RETINAL DRAWING I&R 1ST DETERMINA 51044 ZAYNAB WORTHY TION 2 JAM JAM REFRACTIV E STATE INJECTION J3301 [place] 2 [facility] TRIAMCINO INTERNAL INTERNAL LONE MED MED ACETONIDE NOS 10 MG THERAPEUT 48620 [place] KEMIE IC 2 [facility] OPAL PROPHYLAC INTERNAL TIC/DX MED INJECTION SUBQ/IM SPCL STN 24588 PATHOLOGY PATHOLOGY 2 I&R 2 & & EXCPT CYTOLOGY CYTOLOGY MICROORG/ LAB LAB ENZYME/[place] [address] PATHOLOGY PATHOLOGY SURG 2 & & PATHOLOGY CYTOLOGY CYTOLOGY LAB LAB GROSS&JOSE CRUZ ROSCOPIC EXAM CATHETER C1726 ALEXANDRA SANTAON BALLOON 2 [facility] H[facility] DILATATIO [place] [address] ALEXANDRA MORRIS INFUSION 2 [facility] THERAPY/P INC INC ROPHYLAXI S /DX 1ST TO 1 HR EGD 01317 [place] MAHSA TRANSORAL 2 MEDICAL BIOPSY SERV SINGLE/MU FOUNDATIO LTIPLE EGD 92749 [place] MAHSA BALL[place] 2 MEDICAL DILATION SERV ESOPHAGUS FOUNDATIO <[place] [address] ALEXANDRAREHANA MORRIS INFUSION 2 [facility] THERAPY INC INC PROPHYLAX IS/DX EA HOUR COLLECTIO 04193 ALEXANDRA MORRIS N VENOUS 2 [facility] BLOOD INC INC VENIPUNCT URE CT THORAX 45522 [place] BARKLEY W/O 2 MEDICAL [place]ER[place] CONTRAST IMAGING MATERIAL ASS 3D 28673 [place] BARKLEY RENDERING 2 MEDICAL PIERRE IMAGING W/INTERP& [place] [address] ALEXANDRA MORRIS ABDOMEN & 2 [facility] PELVIS INC INC W/O CONTRAST MATERIAL BLOOD 58957 ALEXANDRA MORRIS COUNT 2 [facility] COMPLETE INC INC AUTO&AUTO DIFRNTL WBC COMPREHEN 64703 ALEXANDRA MORRIS SIVE 2 [facility] METABOLIC INC INC PANEL COMPREHEN 43090 COMBINED COMBINED SIVE 2 PHYSICIAN PHYSICIAN METABOLIC S LA S LA PANEL BLOOD 24560 COMBINED COMBINED COUNT 2 PHYSICIAN PHYSICIAN COMPLETE S LA S LA AUTO&AUTO DIFRNTL WBC TRAVEL [address] MED 2 PHYSICIAN PHYSICIAN NEC LAB S LA S LA SPEC; PRORATD TRIP CHRG COLLECTIO 48410 COMBINED COMBINED N VENOUS 2 PHYSICIAN PHYSICIAN B[place] [address] ALEXANDRA ALEXANDRA INFUSION 2 [facility] THERAPY INC INC [place] [address] [place] MAHSA BALL[place] 2 MEDICAL DILATION SERV ESOPHAGUS FOUNDATIO <30 [place] [address] ALEXANDRA ALEXANDRA INFUSION 2 [facility] THERAPY/P INC INC ROPHYLAXI S /DX 1ST TO 1 HR CATHETER C1726 ALEXANDRA ALEXANDRA BALLOON 2 [facility] DILATATIO INC INC N NON-VASCU LAR CATHETER C1726 ALEXANDRA ALEXANDRA BALLOON 2 [facility] [place] [address] ALEXANDRA ALEXANDRA INFUSION 2 [facility] THERAPY/P INC INC ROPHYLAXI S /DX 1ST TO 1 HR EGD 92855 [place] MAH[place] BALLOON 2 MEDICAL DILATION SERV ESOPHAGUS FOUNDATIO <30 [place] [address] ALEXANDRA ALEXANDRA INFUSION 2 [facility] THERAPY INC INC PROPHYLAX IS/DX EA HOUR RADIOLOGI 49065 CAR[place]INA BARKLEY C EXAM 2 MEDICAL PIERRE CHEST 2 IMAGING VIEWS ASS FRONTAL&L ATERAL 3D 30455 [place] BARKLEY RENDERING 1 MEDICAL PIERRE IMAGING W/INTERP& ASS POSTPROC DIFF WORK STATION CT LUMBAR 28481 [place] BARKLEY SPINE 1 MEDICAL PIERRE W/O IMAGING CONTRAST ASS MATERIAL RADIOLOGI 67935 [place] BARKLEY C 1 MEDICAL PIERRE EXAMINATI IMAGING ON FEMUR ASS 2 VIEWS RADEX HIP 14044 [place] BARKLEY 1 MEDICAL PIERRE UNILATERA IMAGING L ASS COMPLETE MINIMUM 2 [place] [address] ALEXANDRA ALEXANDRA INFUSION 1 [facility] THERAPY/P INC INC ROPHYLAXI S /DX 1ST TO 1 [place] [address] ALEXANDRA ALEXANDRA INFUSION 1 [facility] THERAPY INC INC PROPHYLAX IS/DX [place] EGD 29649 [place] MAHSA [place] 1 MEDICAL DILATION SERV ESOPHAGUS FOUNDATIO <30 MM DIAM CATHETER C1726 ALEXANDRA ALEXANDRA BALLO[place] 1 [facility] DILATATIO INC INC N NON-VASCU LAR CATHETER C1726 ALEXANDRA ALEXANDRA B[place] 1 [facility] DILATATIO INC INC N NON-VASCU LAR EGD 75380 [place] MAH[place] 1 MEDICAL DILATION SERV ESOPHAGUS FOUNDATIO <30 [place] [address] ALEXANDRA ALEXANDRA INFUSION 1 [facility] THERAPY INC [place] [address] ALEXANDRA ALEXANDRA INFUSION 1 [facility] THERAPY/P INC INC ROPHYLAXI S /DX 1ST TO 1 HR OPHTHALMO 78375 ZAYNAB WORTHY SCPY 1 JAM JAM EXTENDED RETINAL DRAWING I&R 1ST CATHETER C1726 ALEXANDRA ALEXANDRA B[place] 1 [facility] [place]AT[place] [address] ALEXANDRA ALEXANDRA INFUSION 1 [facility] THERAPY/P INC INC ROPHYLAXI S /DX 1ST TO 1 HR EGD 95386 [place] MAHSA [place] 1 MEDICAL DILATION SERV ESOPHAGUS FOUNDATIO <30 [place] [address] ALEXANDRA ALEXANDRA INFUSION 1 [facility] THERAPY INC INC PROPHYLAX IS/DX EA HOUR 3D 09757 [place] WAYUTCHER RENDERING 1 MEDICAL PIERRE IMAGING W/INTERP& ASS POSTPROC DIFF WORK STATION CT THORAX 67706 [place] WAYUTCHER 1 MEDICAL PIERRE W/[place] [address] [place]INA BARKLEY ABDOMEN & 1 MEDICAL PIERRE PELVIS IMAGING W/CONTRAS ASS T MATERIAL COLLECTIO 90696 COMBINED COMBINED N VENOUS 1 PHYSICIAN PHYSICIAN BLOOD S LA S LA VENIPUNCT URE TRAVEL [address] MED 1 PHYSICIAN PHYSICIAN NEC LAB S LA S LA SPEC; PRORATD TRIP CHRG COMPREHEN 33730 COMBINED COMBINED SIVE 1 PHYSICIAN PHYSICIAN METABOLIC S LA S LA PANEL CATHETER C1726 ALEXANDRA ALEXANDRA BALLO[place] 1 [facility] DILATATIO INC INC N NON-VASCU LAR EGD 65146 [place] MAHSA [place] 1 MEDICAL DILATION SERV ESOPHAGUS FOUNDATIO <30 [place] [address] ALEXANDRA ALEXANDRA INFUSION 1 [facility] THERAPY INC [place] [address] ALEXANDRA ALEXANDRA INFUSION 1 [facility] THERAPY/P INC INC ROPHYLAXI S /DX 1ST TO 1 HR EGD 51455 [place] MAHSA TRANSORAL 1 MEDICAL BIOPSY SERV SINGLE/MU FOUNDATIO LTIPLE OPHTH 30037 [facility] 1 JAM JAM XM&EVAL COMPRHNSV ESTAB PT 1/> OPHTHALMO 48305 [facility] 1 IAN JAM EXTENDED RETINAL DRAWING I&R 1[place] [address] PATHOLOGY PATHOLOGY SURG 1 & & PATHOLOGY CYTOLOGY CYTOLOGY LAB LAB GROSS&JOSE CRUZ ROSCOPIC EXAM IMHISTOCH 41899 PATHOLOGY PATHOLOGY EM/CYTCHM 1 & & 1ST CYTOLOGY CYTOLOGY ANTIBODY LAB LAB STAIN PROCEDURE CATHETER C1726 ALEXANDRA ALEXANDRA [place] 1 [facility] DILATATIO INC INC N NON-VASCU LAR SPCL STN 26755 PATHOLOGY PATHOLOGY 2 I&R 1 & & EXCPT CYTOLOGY CYTOLOGY MICROORG/ LAB LAB ENZYME/[place] [address] ALEXANDRAREHANA MORRIS INFUSION 1 [facility] THERAPY/P INC INC ROPHYLAXI S /DX 1ST TO 1 HR EGD 47617 TAM GOMES MAHSA TRANSORAL 1 MEDICAL BIOPSY SERV SINGLE/[place] [address] ALEXANDRAREHANA MORRIS INFUSION 1 [facility] THERAPY INC INC PROPHYLAX IS/DX EA HOUR COLLECTIO 86624 COMBINED COMBINED N VENOUS 1 PHYSICIAN PHYSICIAN [place] [address] [facility] A[facility] & 1 MEDICAL PIERRE PELVIS IMAGING W/CONTRAS ASS T MATERIAL CT THORAX 56064 [facility] 1 MEDICAL PIERRE W/CONTRAS IMAGING T ASS MATERIAL 3D 76966 ALEXANDRA MORRIS RENDERING 1 [facility] INC INC W/INTERP& POSTPROC DIFF WORK STATION COLLECTIO 40718 COMBINED COMBINED N VENOUS 1 PHYSICIAN PHYSICIAN BLOOD S LA S LA VENIPUNCT URE BLOOD 58375 COMBINED COMBINED COUNT 1 PHYSICIAN PHYSICIAN COMPLETE S LA S LA AUTO&AUTO DIFRNTL WBC COMPREHEN 50256 COMBINED COMBINED SIVE 1 PHYSICIAN PHYSICIAN METABOLIC S LA S LA PANEL RADEX 03033 [place] FIL[place] ESOPHAGUS 0 MEDICAL PIERRE IMAGING ASS COLONOSCO 64160 TAM GOMES MAHSA PY FLX DX 0 MEDICAL W/COLLJ [place] [address] ALEXANDRA SANTAON INFUSION 0 [facility] THERAPY/P INC INC ROPHYLAXI S /DX 1ST TO 1 [place] [address] ALEXANDRA ALEXANDRA INFUSION 0 [facility] THERAPY INC INC PROPHYLAX IS/DX EA HOUR OPHTHALMO 56392 ZAYNAB WORTHY SCPY 0 JAM JAM EXTENDED RETINAL DRAWING I&R 1ST 3D 50181 ALEXANDRA SANTAON RENDERING 0 [facility] INC INC W/INTERP& POSTPROC DIFF WORK STATION CT THORAX 21999 [facility] 0 MEDICAL PIERRE W/CONTRAS IMAGING T ASS MATERIAL CT PELVIS 91055 [facility] 0 MEDICAL PIERRE W/[place] [address] [facility] ABDOMEN 0 MEDICAL PIERRE W/CONTRAS IMAGING T ASS MATERIAL COLLECTIO 44098 COMBINED COMBINED N VENOUS 0 PHYSICIAN PHYSICIAN BLOOD S LA S LA VENIPUNCT URE BLOOD 97909 COMBINED COMBINED COUNT 0 PHYSICIAN PHYSICIAN COMPLETE S LA S LA AUTO&AUTO DIFRNTL WBC COMPREHEN 36563 COMBINED COMBINED SIVE 0 PHYSICIAN PHYSICIAN METABOLIC S LA S LA PANEL TRAVEL [address] MED 0 PHYSICIAN PHYSICIAN NEC LAB S LA S LA SPEC; PRORATD TRIP CHRG SPCL STN 19780 PATHOLOGY PATHOLOGY 2 I&R 0 & & EXCPT CYTOLOGY CYTOLOGY MICROORG/ LAB LAB ENZYME/IM CYT CATHETER C1726 ALEXANDRA MORRIS [place] 0 [facility] DILATATIO [place] [address] PATHOLOGY PATHOLOGY SURG 0 & & PATHOLOGY CYTOLOGY CYTOLOGY LAB LAB GROSS&[place] [address] ALEXANDRA SANTAON INFUSION 0 [facility] THERAPY INC INC PROPHYLAX IS/DX [place] EGD 30708 [place] MAHSA TRANSORAL 0 MEDICAL BIOPSY SERV SINGLE/[place] [address] ALEXANDRA MORRIS INFUSION 0 [facility] THERAPY/P INC INC ROPHYLAXI S /DX 1ST TO 1 HR CHANGE 49414 ALEXANDAR MORRIS GASTROSTO 0 [facility] MY TUBE INC INC PERCUTANE OUS W/O GDNCE COMPREHEN 63332 COMBINED COMBINED SIVE 0 PHYSICIAN PHYSICIAN METABOLIC S LAB S LAB PANEL BLOOD 14886 COMBINED COMBINED COUNT 0 PHYSICIAN PHYSICIAN COMPLETE S LAB S LAB AUTO&AUTO DIFRNTL WBC COLLECTIO 97267 COMBINED COMBINED N VENOUS 0 PHYSICIAN PHYSICIAN BLOOD S LAB S LAB VENIPUNCT URE OPHTH 33131 ZAYNAB WORTHY, MEDICAL 0 ALEM FERRARA XM&EVAL COMPRHNSV ESTAB PT 1/> [place] [address] [facility], ABDOMEN 0 MEDICAL GUANACO W/CONTRAS IMAGING T ASSOCIATE MATERIAL S CT THORAX 21322 [facility], 0 MEDICAL GUANACO W/CONTRAS IMAGING T ASSOCIATE MATERIAL S 3D 09472 [facility] AWYFIL[facility], RENDERING 0 MEDICAL GUANACO IMAGING W/INTERP& ASSOCIATE POSTPROC S DIFF WORK STATION COLLECTIO 74480 COMBINED COMBINED N VENOUS 0 PHYSICIAN PHYSICIAN BLOOD S LAB S LAB VENIPUNCT URE COMPREHEN 56803 COMBINED COMBINED SIVE 0 PHYSICIAN PHYSICIAN METABOLIC S LAB S LAB PANEL BLOOD 10988 COMBINED COMBINED COUNT 0 PHYSICIAN PHYSICIAN COMPLETE S LAB S LAB AUTO&AUTO DIFRNTL WBC TRAVEL [address] MED 0 PHYSICIAN PHYSICIAN NEC LAB S LAB S LAB SPEC; PRORATD TRIP CHRG SPCL STN 78967 PATHOLOGY PATHOLOGY 2 I&R 0 & & EXCPT CYTOLOGY CYTOLOGY MICROORG/ LAB LAB ENZYME/[place] [address] PATHOLOGY PATHOLOGY SURG 0 & & PATHOLOGY CYTOLOGY CYTOLOGY LAB LAB GROSS&JOSE CRUZ ROSCOPIC EXAM IMHISTOCH 32591 PATHOLOGY PATHOLOGY EM/CYTCHM 0 & & 1ST CYTOLOGY CYTOLOGY [place] [address] ALEXANDRA SANTAON INFUSION 0 [facility] THERAPY/P INC INC ROPHYLAXI S /DX 1ST TO 1 [place] [address] ALEXANDRA ALEXANDRA INFUSION 0 [facility] THERAPY INC INC PROPHYLAX IS/DX EA HOUR ENDOSCOPY 64137 [place] GOM[place], UPPER 0 MEDICAL [place] SMALL SERV INTESTINE FOUNDATIO W/BIOPSY CT THORAX 54247 [facility], W/O 9 MEDICAL GUANACO CONTRAST IMAGING MATERIAL ASSOCIATE S 3D 89885 ALEXANDRA SANTAON RENDERING 9 [facility] INC INC W/INTERP& [place] [address] [facility], ABDOMEN 9 MEDICAL GUANACO W/O IMAGING CONTRAST ASSOCIATE MATERIAL S COMPREHEN 53639 COMBINED COMBINED SIVE 9 PHYSICIAN PHYSICIAN METABOLIC S LAB S LAB PANEL COLLECTIO 63479 COMBINED COMBINED N VENOUS 9 PHYSICIAN PHYSICIAN BLOOD S LAB S LAB VENIPUNCT URE RADIOLOGI 49020 [place] Daisy BARKLEY 9 MEDICAL GUANACO EXAMINATI IMAGING ON KNEE 3 ASSOCIATE VIEWS S COLLECTIO 98834 COMBINED COMBINED N VENOUS 9 PHYSICIAN PHYSICIAN BLOOD S LAB S LAB VENIPUNCT URE COMPREHEN 41629 COMBINED COMBINED SIVE 9 PHYSICIAN PHYSICIAN METABOLIC S LAB S LAB PANEL GONADOTRO 51500 LAB [facility] LAB [facility] PIN 9 AMERIC AMERIC FOLLICLE HOLDING HOLDING STIMULATI NG HORMONE GONADOTRO 78006 LAB [facility] LAB TULIO PIN 9 AMERIC AMERIC LUTEINIZI HOLDING HOLDING NG HORMONE SCR [id number] PATHOLOGY PATHOLOGY CYTOPATH 9 & & CERV/VAG CYTOLOGY CYTOLOGY THIN LAY LAB LAB PREP INTEPR PHYS URNLS DIP 68146 [place] MCKEMIE 9 WILLIAMS JR, STICK/TAB INTERNAL ERLIN F LET RGNT MED NON-AUTO W/O MICRSCP SCR G0145 PATHOLOGY PATHOLOGY CYTOPATH 9 & & CERV/VAG CYTOLOGY CYTOLOGY SCR LAB LAB AUTO&[place] [address] PATHOLOGY PATHOLOGY SURG 9 & & PATHOLOGY CYTOLOGY CYTOLOGY LAB LAB GROSS&JOSE CRUZ ROSCOPIC EXAM CHANGE 40919 TAM SANTIAGOA, GASTROSTO 9 MEDICAL [place] MY TUBE SERV PERCUTANE FOUNDATIO OUS W/O GDNCE SPCL STN 18725 PATHOLOGY PATHOLOGY 2 I&R 9 & & EXCPT CYTOLOGY CYTOLOGY MICROORG/ LAB LAB ENZYME/IM CYT CATHETER C1726 ALEXANDRA MORRIS [place] 9 [facility] [place] [address] ALEXANDRA MORRIS INFUSION 9 [facility] THERAPY/P INC INC ROPHYLAXI S /DX 1ST TO 1 HR EGD 44426 [place] G[place], TRANSORAL 9 MEDICAL [place] BIOPSY SERV SINGLE/[place] [address] ALEXANDRA MORRIS INFUSION 9 [facility] THERAPY INC INC PROPHYLAX [place] [address]404 [place] GOM[place], BALLOON 9 MEDICAL [place] DILATION SERV ESOPHAGUS FOUNDATIO <[address] PELVIS 35096 ALEXANDRA MORRIS 9 [facility] W/CONTRAS INC INC T MATERIAL CT THORAX 24915 [place] HERB, 9 MEDICAL RUTHY P W/CONTRAS IMAGING T ASSOCIATE MATERIAL S 3D 38451 [place] HERB, RENDERING 9 MEDICAL RUTHY P IMAGING W/INTERP& ASSOCI[place] [address] [place] HERB, ABDOMEN 9 MEDICAL RUTHY P W/CONTR[place] [address] ALEXANDRA MORRIS GUIDANCE 9 [facility] NEEDLE INC INC PLACEMENT IMG S&I IMMUNOASS 13469 LAB TULIO LAB TULIO AY TUMOR 9 AMERIC AMERIC ANTIGEN HOLDING HOLDING QUANTITAT [place] 19-9 COMPREHEN 65495 COMBINED COMBINED SIVE 9 PHYSICIAN PHYSICIAN METABOLIC S LAB S LAB PANEL BLOOD 09108 COMBINED COMBINED COUNT 9 PHYSICIAN PHYSICIAN COMPLETE S LAB S LAB AUTO&AUTO DIFRNTL WBC COLLECTIO 09592 COMBINED COMBINED N VENOUS 9 PHYSICIAN PHYSICIAN BLOOD S LAB S LAB VENIPUNCT URE 3D 46256 [place] FILIP[place], RENDERING 9 MEDICAL GUANACO IMAGING W/INTERP& ASSOCIATE POSTPROC S DIFF WORK STATION CT THORAX 57939 [place] FILIP[place], 9 MEDICAL GUANACO W/CONTRAS IMAGING T ASSOCIATE MATERIAL S CT PELVIS 89048 [place] FILIPPO, 9 MEDICAL GUANACO W/CONTRAS IMAGING T ASSOCIATE MATERIAL S THYROID 63451 ALEXANDRA MORRIS HORM 9 [facility] UPTK/THYR [place] [address] [place], ABDOMEN 9 MEDICAL [place] W/CONTRAS IMAGING [place] [address] ALEXANDRA MORRIS THYROXINE 9 [facility] [place] [address] ALEXANDRA M[facility] THYROID 9 [facility] STIMULATI [place] [address] ALEXANDRA MORRIS UREA 9 [facility] NITROGEN INC INC QUANTITAT KONSTANTIN CREATININ 65876 ALEXANDRA MORRIS E BLOOD 9 [facility] INC INC OPHTHALMO 17325 ZAYNAB WORTHY, SCPY 9 ALEM FERRARA EXTENDED RETINAL DRAWING I&R 1ST CHANGE 23082 ANURAGSTPRISCA SCHULSTAD GASTROSTO 9 , BRENDAN , BRENDAN MY TUBE PERCUTANE OUS W/O GDNCE CUL BACT 45940 ALEXANDRA ALEXANDRA XCPT 9 [facility] URINE INC INC BLOOD/[place] EGD [address]408 [place], TRANSORAL 8 [facility] [place] BIOPSY SERV SINGLE/MU FOUNDATIO LTIPLE EGD 83339 [place], BALLOON 8 [facility] [place] DILATION SERV ESOPHAGUS FOUNDATIO <30 MM DIAM CATHETER C1726 ALEXANDRA MORRIS BALLOON 8 [facility] DILATATIO INC INC N NON-VASCU LAR SPCL STN 80943 PATHOLOGY PATHOLOGY 2 I&R 8 & & EXCPT CYTOLOGY CYTOLOGY MICROORG/ LAB LAB ENZYME/[place] [address] PATHOLOGY PATHOLOGY SURG 8 & & PATHOLOGY CYTOLOGY CYTOLOGY LAB LAB GROSS&[place] [address] ALEXANDRA MORRIS THER 8 [facility] PROPH/DX INC INC 1ST >[address] PELVIS 70353 ALEXANDRA MORRIS 8 [facility] W/CONTRAS INC INC T MATERIAL CT THORAX 34523 ALEXANDRA MORRIS 8 [facility] W/CONTRAS INC INC T MATERIAL 3D 64573 ALEXANDRA MORRIS RENDERING 8 [facility] INC INC W/INTERP& POSTPROC DIFF WORK STATION COMPREHEN 77796 ALEXANDRA MORRIS SIVE 8 [facility] METABOLIC INC INC PANEL BLOOD 06248 ALEXANDRA MORRIS COUNT 8 [facility] COMPLETE INC INC AUTO&[place] [address] ALEXANDRA MORRIS ABDOMEN 8 [facility] W/CONTRAS INC INC T MATERIAL BLOOD 19108 COMBINED COMBINED COUNT 8 PHYSICIAN PHYSICIAN COMPLETE S LAB S LAB AUTO&AUTO DIFRNTL WBC COMPREHEN 34117 COMBINED COMBINED SIVE 8 PHYSICIAN PHYSICIAN METABOLIC S LAB S LAB PANEL COLLECTIO 31252 COMBINED COMBINED N VENOUS 8 PHYSICIAN PHYSICIAN BLOOD S LAB S LAB VENIPUNCT URE MRI BRAIN 84298 FILIPPO FILIPPO, BRAIN 8 GUANACO GUANACO STEM W/O W/CONTRAS T MATERIAL CT THORAX 51523 [place] ESTEVEZ, 8 MEDICAL [place] P W/CONTRAS IMAGING T ASSOCIATE MATERIAL S 3D 44292 ALEXANDRA ALEXANDRA RENDERING 8 [facility] INC INC W/INTERP& [place] [address] [place] ESTEVEZ, ABDOMEN 8 MEDICAL [place] P W/CONTRAS IMAGING [place] [address] ALEXANDRA MORRIS UREA 8 [facility] NITROGEN [place] [address] ALEXANDRA MORRIS THER 8 [facility] PROPH/DX INC INC 1ST >1 HR IV NFUS 49851 ALEXANDRA MORRIS THER 8 [facility] PROPH/DX INC INC EA HR CREATININ 34685 ALEXANDRA MORRIS E BLOOD 8 [facility] INC INC ENTERAL B4034 [facility] C[facility] FEEDING 8 [employer] SUPPLY KIT; SYRINGE FED PER DAY ENTRAL F B4150 [facility] NUTRITION 8 [employer] CMPL W/INTACT NUTRIENTS ENTERAL B4034 HOME LONG-TERM CARE FEEDING 8 [employer] SU[place]; [place] [address] ALEXANDRA ALEXANDRA ABDOMEN 8 [facility] W/O INC INC CONTRAST MATERIAL 3D 93485 ALEXANDRA MORRIS RENDERING 8 [facility] INC INC W/INTERP& POSTPROC DIFF WORK STATION CT PELVIS 64501 [facility], W/O 8 MEDICAL [place]UTH[place] P CONTRAST IMAGING MATERIAL ASSOCIATE S CT THORAX [address]68[address] [facility], W/O 8 MEDICAL [place] P CONTRAST IMAGING MATERIAL ASSOCIATE S ENTRAL F B4150 HOME LONG-TERM CARE NUTRITION 8 [employer] CMPL W/INTACT NUTRIENTS ENTERAL B4034 HOME LONG-TERM CARE FEEDING 8 [employer] SUPPLY KIT; SYRINGE FED PER DAY ENTERAL B4034 HOME LONG-TERM C[facility] FEEDING 8 [employer] SUPPLY KIT; SYRINGE FED PER DAY HOSPITAL [address]446 ALFONSO MATHEW, DISCHARGE 8 [facility] DAY INTERNAL MANAGEMEN MED T 30 MIN/< SBSQ 59072 [facility] 8 [facility], CARE/DAY INTERNAL ERLIN F 25 MED MINUTES SBSQ [phone], CARE/DAY INTERNAL ERLIN F 25 MED MINUTES [place]EX ABD [address] [facility] ESTEVEZ, COMPL 8 MEDICAL [place] P AQT ABD IMAGING W/S/E/D ASSOCIATE VIEWS 1 S VIEW CH INITIAL [address], CARE/DAY INTERNAL ERLIN F 50 MED MINUTES RADIOLOGI 73780 Daisy JOHN EXAM 8 MEDICAL [place] CHEST 2 IMAGING VIEWS ASSOCIATE FRONTAL&L S ATERAL COLLECTIO [id number] [facility]OUS 8 [facility] BLOOD INC INC VENIPUNCT URE BASIC 43363 [facility] METABOLIC 8 [facility] PANEL INC INC CALCIUM TOTAL BLOOD 43063 [facility] COUNT 8 [facility] COMPLETE INC INC AUTO&AUTO DIFRNTL WBC THER 40847 [facility]DR[facility] M[facility] PROPH/DX 8 [facility] NJX EA INC INC SEQL IV PUSH SBST/DRUG [place] NFS 63199 [facility] THER 8 [facility] PROPH/DX INC INC 1ST >1 HR IV NFS 91595 [facility] THER 8 [facility] PROPH/DX INC INC 1ST >1 HR IV NFUS 80117 [facility] THER 8 [facility] PROPH/DX INC INC EA HR CHEMOTX 62235 ALEXANDRA MORRIS ADMN IV 8 [facility] PUSH TQ INC INC 1/ SBST/DRUG INJECTION J9178 [facility] EPIRUBICI INC INC N HCL 2 MG CHEMOTX 83765 ALEXANDRA MORRIS ADMN IV 8 [facility] NFS TQ UP INC INC 1 HR 1/ SBST/DRUG INJECTION J9060 [facility] CISPLATIN INC INC POWDER OR SOLUTION 10 MG AMB INFUS E0781 HOME LONG-TERM CARE PUMP 8 PARTNERS PARTNERS 1/MX CHANNL W/ADMN EQP WORN BY PT INFUS SPL A4222 HOME LONG-TERM CARE EXT RX 8 PARTNERS PARTNERS INFUS PUMP CASSETTE/ BAG INJECTION J9178 [facility] EPIRUBICI INC INC N HCL 2 MG SUPPLIES A4221 HOME LONG-TERM CARE FOR MAINT 8 PARTNERS PARTNERS NON-INS RX INFUS CATH PER WK INJECTION J9060 [facility] CISPLATIN INC INC POWDER OR SOLUTION 10 MG CHEMOTX 02022 ALEXANDRA MORRIS ADMN IV 8 [facility] NFS TQ UP INC INC 1 HR 1/ SBST/DRUG CHEMOTX 81514 ALEXANDRA MORRIS ADMN IV 8 [facility] NFS TQ EA INC INC SEQL NFS TO 1 HR IV NFUS 95295 A[facility]ANDR[facility] M[facility]IS THER 8 [facility] PROPH/DX INC [place] NFS 33033 A[facility]DR[facility] M[facility]IS THER 8 [facility] PROPH/DX INC INC 1ST >1 HR AMB INFUS E0781 HOME LONG-TERM CARE PUMP 8 PARTNERS PARTNERS 1/MX CHANNL W/ADMN EQP WORN BY PT SUPPLIES A4221 HOME LONG-TERM CARE FOR MAINT 8 PARTNERS PARTNERS NON-INS RX INFUS CATH PER WK INFUS SPL A4222 HOME LONG-TERM CARE EXT RX 8 PARTNERS PARTNERS INFUS PUMP CASSETTE/ BAG INJECTION J9190 HOME LONG-TERM CARE 8 PARTNERS PARTNERS FLUOROURA CIL 500 MG RPLCMT 28562 [facility] COMPL 8 Y Y PRPH [facility]ITAL W/O SUBQ PORT/DISC INSPECTOR NONINVASI 18178 [facility] VE 8 Y Y EAR/PULSE [facility] OXIMETRY SINGLE DETER RADIOLOGI 24087 [facility] ALL[facility]ANCE 8 Y [facility] SING[facility] VIEW FRONTAL ENTERAL B4034 HOME LONG-TERM CARE FEEDING 8 PARTNERS PARTNERS SUPPLY KIT; SYRINGE FED PER DAY CATHETER C1751 [facility] 8 Y Y [facility]/M IDLN INJECTION J2997 [facility] 8 Y Y [facility] NT 1 MG INJECTION J9060 [facility] 8 [facility] CISPLATIN INC INC POWDER OR SOLUTION 10 MG CHEMOTX 52253 ALEXANDRA MORRIS ADMN IV 8 [facility] NFS TQ UP INC INC 1 HR 1/ SBST/DRUG CHEMOTHER 22558 ALEXANDRA MORRIS APY ADMN 8 [facility] IV INC INC INFUSION TQ EA HR INJECTION J9178 [facility] 8 [facility] EPIRUBICI INC INC N HCL 2 MG CHEMOTX 34025 LAEXANDRA MORRIS ADMN IV 8 [facility] PUSH TQ INC INC EA SBST/DRUG ENTRAL F B4150 HOME LONG-TERM CARE NUTRITION 8 PARTNERS PARTNERS ALLY CMPL W/INTACT NUTRIENTS AMB INFUS E0781 HOME LONG-TERM CARE PUMP 8 PARTNERS PARTNERS 1/MX CHANNL W/ADMN EQP WORN BY PT INFUS SPL A4222 HOME LONG-TERM CARE EXT RX 8 PARTNERS PARTNERS INFUS PUMP CASSETTE/ BAG GRANISETR Q0166 ALEXANDRA MORRIS ON HCL 1 8 [facility] MG ORL INC INC NOT >48 HR DOSE REGIMEN CHEMOTX 87215 ALEXANDRA MORRIS ADMN IV 8 [facility] PUSH TQ INC INC EA SBST/DRUG CHEMOTHER 53605 ALEXANDRA ALLISON ADMN 8 [facility] IV INC INC INFUSION TQ EA HR INJECTION J9178 [facility] 8 [facility] EPIRUBICI INC INC N HCL 2 MG SUPPLIES A4221 HOME LONG-TERM CARE FOR MAINT 8 PARTNERS PARTNERS NON-INS RX INFUS CATH PER WK CHEMOTX 72944 ALEXANDRA MORRIS ADMN IV 8 [facility] NFS TQ UP INC INC 1 HR 1/ SBST/DRUG INJECTION J9060 [facility] 8 [facility] CISPLATIN INC INC POWDER OR SOLUTION 10 MG INJECTION J9190 HOME LONG-TERM CARE 8 PARTNERS PARTNERS FLUOROURA CIL 500 MG ENTERAL B4034 HOME LONG-TERM CARE FEEDING 8 PARTNERS PARTNERS SUPPLY KIT; SYRINGE FED PER DAY ECHO 12624 ALEXANDRA M[facility]RIS TRANSTHOR 8 [facility] AC R-T 2D INC INC W/WO M-MODE REC COMP DOP 34436 A[facility]ANDRA MORRIS ECHOCARD 8 [facility] COLOR INC INC FLOW VELOCITY MAPPING DOPPLER 55762 ALEXANDRA OMRRIS ECHOCARD 8 [facility] PULSE INC INC WAVE W/S[place] NFS 20070 ALEXANDRA MORRIS THER 8 [facility] PROPH/DX INC INC 1ST >1 [place] EGD 22375 [place] TRANSORAL 8 MEDICAL MEDICAL BIOPSY SERV SERV SINGLE/[place] [address] PATHOLOGY PATHOLOGY SURG 8 & & PATHOLOGY CYTOLOGY CYTOLOGY LAB LAB GROSS&JOSE CRUZ ROSCOPIC EXAM SPECIAL 81543 PATHOLOGY PATHOLOGY STAIN 8 & & GROUP 1 CYTOLOGY CYTOLOGY MICROORGA LAB LAB NISMS I&R SPCL STN 19574 PATHOLOGY PATHOLOGY 2 I&R 8 & & EXCPT CYTOLOGY CYTOLOGY MICROORG/ LAB LAB ENZYME/IM CYT ENTERAL B4034 HOME LONG-TERM CARE FEEDING 8 PARTNERS PARTNERS SUPPLY KIT; SYRINGE FED PER DAY ENTRAL F B4150 HOME LONG-TERM [facility]ARE NUTRITION 8 PARTNERS PARTNERS ALLY CMPL W/INTACT NUTRIENTS Encounters Encounter Start End Date Code Location Performer Type Date OFFICE 52933 DERMATOLO MUSIC OUTPATIEN 7 7 GY T VISIT CONSULTAN 15 TS PSC MINUTES OFFICE 16284 [facility] WORTHY OUTPATIEN 7 7 [facility] 25 [facility] MINUTES OFFICE 52054 FAUSTINO HARMON OUTPATIEN 6 6 ROCAEL ROCAEL T VISIT 15 MINUTES OFFICE 80729 DERMATOLO MUSIC OUTPATIEN 6 6 GY T VISIT CONSULTAN 15 TS PSC MINUTES OFFICE 78569 FAUSTINO HARMON OUTPATIEN 6 6 ROCAEL ROCAEL T VISIT 15 MINUTES OFFICE 15937 [facility] WORTHY OUTPATIEN 6 6 [facility], 25 P[facility] MINUTES OFFICE 99315 FAUSTINO HARMON OUTPATIEN 6 6 ROCAEL ROCAEL T NEW 30 MINUTES [facility] ALEXANDRA - 6 6 [facility] OUTPATIEN INC T OFFICE 10296 [place] WORTHY OUTPATIEN 6 6 [facility] T [facility]IS[facility], 25 P[facility] A[facility]A - 6 6 [facility] OUTPATIEN INC [facility] - 6 6 [facility] OUTPATIEN INC T OFFICE 04051 DERMATOLO MUSIC ELIZABETH OUTPATIEN 6 6 GY T VISIT CONSULTAN 15 TS [facility] ALEX[facility]DRA - 6 6 [facility] OUTPATIEN INC T OFFICE 27821 GIOVANNA MARTÍNEZ OUTPATIEN 6 6 RONI CHRISTIAN T [facility] 30 MINUTES [facility] - 5 5 [facility] OUTPATIEN INC T OFFICE 34500 DERMATOLO MUSIC ELIZABETH OUTPATIEN 5 5 GY T NEW 10 CONSULTAN MINUTES TS PSC OFFICE 83063 [facility] TOD OUTPATIEN 5 5 PHYSICIAN T VISIT S GROUP 10 MINUTES [facility] - 5 5 [facility] OUTPATIEN INC T OFFICE 58048 [facility] 5 5 [facility] T VISIT INTERNAL 15 MED MINUTES [facility] - 5 5 [facility] OUTPATIEN INC T OFFICE 75737 [facility] TOD OUTPATIEN 5 5 PHYSICIAN T NEW 30 S GROUP MINUTES OFFICE 99196 [facility] [facility] OUTPATIEN 5 5 [facility] T VISIT INTERNAL 15 MED MINUTES [facility] - 5 5 [facility] OUTPATIEN INC T OFFICE 06797 [place] [facility] OUTPATIEN 5 5 [facility] T VISIT INTERNAL 25 MED MINUTES [facility] - 5 5 [facility] OUTPATIEN [facility] - 5 5 [facility] - 5 5 [facility] OUTPATIEN [facility] OFFICE 09688 [facility]PATIEN 5 5 [facility] VISIT INTERNAL 25 MED MINUTES OFFICE 50885 ZAYNAB WORTHY OUTPATIEN 4 4 IAN JAM T VISIT 25 MINUTES [facility]OSP[facility] - 4 4 [facility] - 4 4 [facility] OUTPATIEN [facility] OFFICE 51453 ZAYNAB WORTHY OUTPATIEN 4 4 IAN JAM T VISIT 25 MINUTES [facility] - 4 4 [facility] OUTPATIEN [facility] - 4 4 [facility] - OTHER 4 4 [facility] EMERGENCY 93302 LEATHA ALBRIGHT 3 3 EMERGENCY DEPARTMEN SERVICES T VISIT HIGH/URGE NT SEVERITY [facility]OSP[facility] - 3 3 [facility]PATI[facility] EMERGENCY 50187 [facility] 3 3 [facility] T VISIT LOW/MODER SEVERITY OFFICE 25022 ZAYNAB RYDERPATIEN 3 3 IAN JAM T VISIT 15 MINUTES OFFICE 38577 ALEXANDRA RYEDRPATIEN 3 3 [facility] T VISIT HOSPITAL 10 P MINUTES [facility]OSPITAL [facility] - 3 3 [facility] OUTPATIEN [facility] OFFICE 82021 [place] OUTPATIEN 3 3 [facility] T VISIT INTERNAL 15 MED MINUTES OFFICE 73822 [facility] MCKEMIE OUTPATIEN 3 3 [facility] JOSEPH T VISIT INTERNAL 15 MED MINUTES OFFICE 02665 [facility] OUTPATIEN 3 3 [facility] VISIT INTERNAL 15 MED MINUTES OFFICE 72239 ZAYNAB WORTHY OUTPATIEN 3 3 IAN SOSA T VISIT 25 MINUTES [facility]OSP[facility] - 3 3 [facility] OUTPATIEN INC [facility] - 3 3 [facility] OUTPATIEN INC T OFFICE 95972 [place] MCKEMIE OUTPATIEN 3 3 [facility] JOSEPH T VISIT INTERNAL 15 MED MINUTES OFFICE 13513 [place] MCKEMIE OUTPATIEN 3 3 [facility] JOSEPH T VISIT INTERNAL 15 MED MINUTES [facility] - 2 2 [facility] OUTPATIEN INC T OFFICE 70096 [place] MCKEMIE OUTPATIEN 2 2 [facility] JOSEPH T VISIT INTERNAL 15 MED MINUTES OFFICE 73237 [place] MCKEMIE OUTPATIEN 2 2 [facility] JOSEPH T VISIT INTERNAL 15 MED MINUTES [facility] - 2 2 [facility] - 2 2 [facility] OUTPATIEN INC [facility] - 2 2 [facility] OUTPATIEN INC T OFFICE 78937 [facility] MCKEMIE OUTPATIEN 2 2 [facility] JOSEPH T VISIT INTERNAL 15 MED MINUTES [facility] - 2 2 [facility] OUTPATIEN INC T OFFICE 13199 [place] MCKEMIE OUTPATIEN 2 2 [facility] JOSEPH T VISIT INTERNAL 15 MED MINUTES [facility] - 2 2 [facility] OUTPATIEN INC T OFFICE 15667 [place] MCKEMIE OUTPATIEN 2 2 [facility] JOSEPH T VISIT INTERNAL 10 MED MINUTES [facility] - 2 2 [facility] OFFICE 96052 [place] MCKEMIE OUTPATIEN 2 2 [facility] JOSEPH T VISIT INTERNAL 15 MED MINUTES OFFICE 98461 [facility] [facility]CKEM[facility] OUTPATIEN 2 2 [facility] JOSEPH T VISIT INTERNAL 15 MED MINUTES OFFICE 05711 ZAYNAB WORTHY OUTPATIEN 2 2 IAN SOSA T VISIT 25 MINUTES OFFICE 36912 [place] MCKEMIE OUTPATIEN 2 2 [facility] JOSEPH T VISIT INTERNAL 15 MED MINUTES [facility] - 2 2 [facility]PATI[facility] OFFICE 97536 ALEXANDRA DONAHUE QAI OUTPATIEN 2 2 [facility] 25 P MINUTES [facility]OSP[facility] - 2 2 [facility] OUTPATIEN [facility] A[facility]DRA - 2 2 [facility] OUTPATIEN [facility] A[facility] - 2 2 [facility]PATIEN [facility] A[facility] - 1 1 [facility]PATIEN [facility] - 1 1 [facility] A[facility]DR[facility] - 1 1 [facility]PATI[facility] OFFICE 59198 ZAYNAB WORTHY OUTPATIEN 1 1 IAN SOSA T VISIT 25 MINUTES HOSPITAL [facility] - 1 1 [facility]PATI[facility] OFFICE 36681 ALEXANDRA COHENI OUTPATIEN 1 1 [facility] 25 P MINUTES HOSPITAL [facility] - 1 1 [facility] OUTPATIEN [facility] A[facility]DRA - 1 1 [facility]PATIEN [facility] A[facility] - 1 1 [facility] OUTPATIEN INC T OFFICE 61994 ALEXANDRA ROWAN QAI OUTPATIEN 1 1 [facility] T VISIT HOSPITAL 25 P [facility] ALEXANDRA - 1 1 [facility] OUTPATIEN INC T OFFICE 33022 [facility] MCKEMIE OUTPATIEN 1 1 [facility] JOSEPH T VISIT INTERNAL 15 MED MINUTES OFFICE 00157 [facility] MCKEMIE OUTPATIEN 1 1 [facility] JOSEPH T VISIT INTERNAL 15 MED MINUTES OFFICE 34971 [facility] MCKEMIE OUTPATIEN 1 1 [facility] JOSEPH T VISIT INTERNAL 15 MED [facility] ALEXANDRA - 0 0 [facility] OUTPATIEN INC T OFFICE 40993 CONFUCIANIST IMAM MORRISSEY OUTPATIEN 0 0 CARDIOTHO T VISIT [facility] 10 SURGI [facility] ALEXANDRA - 0 0 [facility] OUTPATIEN INC T OFFICE 45801 ZAYNAB WORTHY OUTPATIEN 0 0 IAN SOSA T VISIT 40 MINUTES [facility] - 0 0 [facility] OUTPATIEN INC [facility] ALEXANDRA - 0 0 [facility] OUTPATIEN INC [facility] A[facility] - 0 0 [facility] OUTPATIEN INC T OFFICE 75016 CONFUCIANISTMASHA SOTO OUTPATIEN 0 0 CARDIOTHO YOUNG M T VISIT [facility] 15 SURGICAL MINUTES GROUP OFFICE 78285 ALEXANDRA DELEON OUTPATIEN 0 0 [facility] VIS[facility] HOSPITAL 15 PROF SERV MINUTES [facility] - 0 0 [facility]PAT[facility]EN [facility] ALEXANDRA - 0 0 [facility] OUTPATIEN INC T OFFICE 85870 [place] MCKEMIE OUTPATIEN 9 9 [facility], T VISIT INTERNAL ERLIN F 15 MED [facility] ALEXANDRA - 9 9 [facility] OUTPATIEN INC T OFFICE 59209 [facility] MCKEMIE OUTPATIEN 9 9 [facility] GONZALEZ, T VISIT INTERNAL ERLIN F 15 MED MINUTES [facility]OSP[facility] - 9 9 [facility] OUTPATIEN INC T OFFICE 30469 [place], OUTPATIEN 9 9 [facility] 10 CLINIC H MINUTES PSC OFFICE 50845 [facility] MCKEMIE OUTPATIEN 9 9 [facility] GONZALEZ, T VISIT INTERNAL ERLIN F 15 MED MINUTES OFFICE 14563 [facility] MCKEMIE OUTPATIEN 9 9 [facility] GONZALEZ, T VISIT INTERNAL ERLIN F 15 MED MINUTES [facility] - 9 9 [facility] OUTPATIEN INC T OFFICE 75033 [place] MCKEMIE OUTPATIEN 9 9 [facility] GONZALEZ, Shivani VISIT INTERNAL ERLIN F 15 MED MINUTES [facility] - 9 9 [facility] OUTPATIEN INC T OFFICE 72993 [facility] MCKEMIE OUTPATIEN 9 9 [facility] GONZALEZ, T VISIT INTERNAL ERLIN F 15 MED MINUTES OFFICE 02746 [facility]IE OUTPATIEN 9 9 WILLIAMS GONZALEZ, T VISIT INTERNAL ERLIN F 15 MED MINUTES OFFICE 04542 [facility] MCKEMIE OUTPATIEN 9 9 [facility] GONZALEZ, T VISIT INTERNAL ERLIN F 15 MED MINUTES OFFICE 16477 [facility] MCKEMIE OUTPATIEN 9 9 [facility] GONZALEZ, T VISIT INTERNAL ERLIN F 15 MED MINUTES [facility] - 9 9 [facility] OUTPATIEN INC T OFFICE 65759 [facility] OUTPATIEN 9 9 [facility] T VISIT INC 25 MINUTES [facility]OSP[facility] - 9 9 [facility] OUTPATIEN INC T OFFICE 06513 ZAYNAB WORTHY, OUTPATIEN 9 9 ALEM FERRARA T VISIT 40 MINUTES OFFICE 15243 [facility] MCKEMIE OUTPATIEN 9 9 [facility] GONZALEZ Shivani VISIT INTERNAL ERLIN F 15 MED MINUTES OFFICE 44985 ALBA OSBORNSTPRISCA OUTPATIEN 9 9 , BREND[facility] CARDONA T VISIT 15 MINUTES [facility] - 9 9 [facility] OUTPATIEN INC T OFFICE 25586 [facility] MCKEMIE OUTPATIEN 9 9 [facility] GONZALEZ Shivani VISIT INTERNAL ERLIN F 15 MED MINUTES [facility]OSP[facility] - 9 9 [facility] OUTPATIEN INC T OFFICE 70111 CARDIOVAS KELVIN, OUTPATIEN 8 8 PAMELA T VISIT THORACIC 15 ASSOC PSC MINUTES OFFICE 55682 [facility] MCKEMIE OUTPATIEN 8 8 [facility] Shivani VISIT INTERNAL ERLIN F 15 MED MINUTES [facility] - 8 8 [facility] OUTPATIEN INC T OFFICE 59769 [facility] [facility]CK[facility] OUTPATIEN 8 8 [facility] Shivani VISIT INTERNAL ERLIN F 15 MED MINUTES OFFICE 72761 A[facility]ANDRA BROWNE OUTPATIEN 8 8 [facility] JAMES [place] Shivani VISIT HOSPITAL 15 PROF SERV MINUTES [facility]OSP[facility] - 8 8 [facility]PATIEN [facility] T [facility] - 8 8 [facility] OUTPATIEN INC T OFFICE 45074 [facility] MCKEMIE OUTPATIEN 8 8 Shivani KRAMER JR VISIT INTERNAL ERLIN F 15 MED MINUTES OFFICE 69964 CARDIOVAS KELVIN, OUTPATIEN 8 8 PAMELA T VISIT THORACIC 15 ASSOC PSC MINUTES [facility]OSP[facility] - 8 8 [facility] OUTPATIEN INC T OFFICE 05852 ALEXANDRA PAVAN, OUTPATIEN 8 8 [facility]OSPITAL 15 PROF SERV MINUTES EMERGENCY 92263 ALEXANDRA JEFF, 8 8 [facility] T VISIT PROF SERV MODERATE SEVERITY EMERGENCY 72365 ALEXANDRA JEFF, DEPT 8 8 [facility] VISIT [facility] HIGH PROF SERV SEVERITY& THREAT FUNCJ EMERGENCY 96570 ALEXANDRA ORTEGA, 8 8 [facility] T VISIT PROF SERV MODERATE SEVERITY [facility] - 8 8 [facility] OUTPATIEN [facility] - 8 8 [facility] 8 8 [facility] OUTPATIEN [facility] T OFFICE 77078 [place] [facility] 8 8 Shivani KRAMER JR VISIT INTERNAL ERLIN F 15 MED MINUTES OFFICE 05788 CARDIOVAS CARDIOVAS [facility] 8 8 [facility] & T VISIT THORACIC THORACIC 15 ASSOC PSC ASSOC PSC MINUTES EMERGENCY 74590 UNIVERSIT 8 8 Y [facility] T VISIT MODERATE SEVERITY HOSPITAL [facility] - [facility] - 8 8 Y [facility] T EMERGENCY 22170 UNIVERSIT 8 8 Y [facility] T VISIT LOW/MODER SEVERITY [facility] - 8 8 [facility] OUTPATIEN [facility] T OFFICE 80353 [place]ELICIANO [facility] 8 8 WILLI[facility] Parrish VISIT INTERNAL 15 MED MINUTES [facility] - 8 8 [facility] - 8 8 [facility] - 8 8 [facility] OUTPATIEN [facility] EMERGENCY 06202 [place] 8 8 [facility] [place] [facility] T VISIT LOW/MODER SEVERITY OFFICE 50563 RICK GUARDADO 8 8 [facility] Rodriguez T VISIT INTERNAL 15 MED MINUTES [facility] - 8 8 [facility] OUTPATIEN INC T OFFICE 29568 ALFONSO CABRERA 8 8 Shivani KRAMER JR VISIT INTERNAL [facility] 15 MED MINUTES
--- OUTSIDE RECORDS SUMMARY | 2017-03-18 17:42 | External Medical Summary Rpt ---
Author Author , JIM FERNANDEZ Address Unknown Phone [email or web address] Immunization Name Date Rout CVX Reac Dose Comm Prov Is Faci e tion ent ider Refu lity Give sed n Infl 09-2 Intr 135 0.5 Hist D049 No D049 uenz 9-20 amus mL oric 01 01 a, 17 cula al High r Info rmat Dose ion - Sour ce Unsp ecif ied PCV1 04-1 Intr 133 0.5 Hist D049 No D049 3 0-20 amus mL oric 01 01 17 cula al r Info rmat ion - Sour ce Unsp ecif ied
--- OUTSIDE RECORDS SUMMARY | 2017-03-18 17:42 | External Medical Summary Rpt ---
Author Author JIM Montgomery, MICHELLEJOHN [employer] Organization [facility] [employer] Address Unknown Phone Unavailable Results Hemoglobin.gastrointestinal [Presence] in Stool Observa Value Referen Units Interpr Notes Date tion ce etation Range Hemoglo POSITIV NEG No No No Sep 30 bin.gas E informa informa informa 2017 trointe tion in tion in tion in 11:03 stinal source source source AM [Presen data data data ce] in Stool --1st specime n Comprehensive metabolic 2000 panel in Serum or Plasma Observa Value Referen Units Interpr Notes Date tion ce etation Range Albumin/G 1.1 - 1.8 No Low No Sep 30 lobulin informati informati 2017 [Mass on in on in 10:35 AM ratio] in source source Serum or data data Plasma Albumin 3.4 - 5.0 gm/dL Normal No Sep 30 [Mass/vol informati 2017 ume] in on in 10:35 AM Serum or source Plasma data Alkaline 46 - 116 U/L Normal No Sep 30 phosphata informati 2017 se on in 10:35 AM [Enzymati source c data activity/ volume] in Serum or Plasma Bilirubin 0.2 - 1.0 mg/dL Normal No Sep 30 .total informati 2017 [Mass/vol on in 10:35 AM ume] in source Serum or data Plasma Urea 7 - 18 mg/dL High No Sep 30 nitrogen informati 2017 [Mass/vol on in 10:35 AM ume] in source Serum or data Plasma Calcium 8.5 - mg/dL Normal No Sep 30 [Mass/vol 10.1 informati 2017 ume] in on in 10:35 AM Serum or source Plasma data Chloride 98 - 107 mmoL/L Normal No Sep 30 [Moles/vo informati 2017 lume] in on in 10:35 AM Serum or source Plasma data Carbon 21.0 - mmoL/L Normal No Sep 30 dioxide, 32.0 informati 2017 total on in 10:35 AM [Moles/vo source lume] in data Serum or Plasma Creatinin 0.55 - mg/dL Normal No Sep 30 e 1.02 informati 2017 [Mass/vol on in 10:35 AM ume] in source Serum or data Plasma Creatinin 50 - 200 ML/MIN Normal No Sep 30 e renal informati 2017 clearance on in 10:35 AM source predicted data by Cockcroft -Gault formula Estimated 59- ML/MIN No REFERENCE Sep 30 informati RANGE: 2017 glomerula on in >60 10:35 AM r source ML/MIN/1. filtratio data 73 SQUARE n rate METERSIf (GF this patient is -A merican, then multiply theresult by 1.210. Globulin 1.3 - 3.2 gm/dL High No Sep 30 [Mass/vol informati 2016 ume] in on in 10:35 AM Serum source data Glucose 74 - 106 mg/dL High No Sep 30 [Mass/vol informati 2016 ume] in on in 10:35 AM Serum or source Plasma data Potassium 3.5 - 5.1 mmoL/L Normal No Sep 30 inform2016 [Moles/vo on in 10:35 AM lume] in source Serum or data Plasma Sodium 136 - 145 mmoL/L Normal No Sep 30 [Moles/vo informati 2017 lume] in on in 10:35 AM Serum or source Plasma data Aspartate 15 - 37 U/L Normal No Sep 30 inform2016 aminotran on in 10:35 AM sferase source [Enzymati data c activity/ volume] in Serum or Plasma Alanine 12 - 78 U/L Normal No Sep 30 aminotran inform2016 sferase on in 10:35 AM [Enzymati source c data activity/ volume] in Serum or Plasma Protein 6.4 - 8.2 gm/dL Normal No Sep 30 [Mass/vol informati 2017 ume] in on in 10:35 AM Serum or source Plasma data CBC W Auto Differential panel in Blood Observa Value Referen Units Interpr Notes Date tion ce etation Range Granulocy 1.8 - 7.8 K/mm3 Normal No Sep 30 apolinar informati 2016 9:58 [#/volume on in AM ] in source Blood by data Automated count Granulocy 37.0 - % High No Sep 30 apolinar/100 80.0 informati 2016 9:58 leukocyte on in AM s in source Blood by data Automated count Hematocri 37.0 - % Normal No Sep 30 t [Volume 47.0 informati 2017 9:58 on in AM Fraction] source of Blood data Hemoglobi 12.2 - g/dL Low No Sep 30 n 16.2 informati 2017 9:58 [Mass/vol on in AM ume] in source Blood data Lymphocyt 0.7 - 4.5 K/mm3 Normal No Sep 30 es informati 2017 9:58 [#/volume on in AM ] in source Unspecifi data ed specimen by Automated count Lymphocyt 10 - 50.0 % Normal No Sep 30 es informati 2017 9:58 [#/volume on in AM ] in source Unspecifi data ed specimen by Automated count Erythrocy 27 - 31.2 pg Normal No Sep 30 te mean informati 2017 9:58 corpuscul on in AM ar source hemoglobi data n [Entitic mass] Erythrocy 31.8 - g/dl Low No Sep 30 te mean 35.4 informati 2017 9:58 corpuscul on in AM ar source hemoglobi data n concentra tion [Mass/vol ume] by Automated count Erythrocy 82.2 - fL Normal No Sep 30 te mean 97.8 informati 2017 9:58 corpuscul on in AM ar volume source [Entitic data volume] by Automated count Monocytes 0.1 - 1.0 K/mm3 Normal No Sep 30 informati 2017 9:58 [#/volume on in AM ] in source Blood by data Automated count Monocytes 1.7 - 9.3 % Normal No Sep 30 /100 informati 2017 9:58 leukocyte on in AM s in source Blood by data Automated count Platelets 142 - 424 K/mm3 Normal No Sep 30 informati 2017 9:58 [#/volume on in AM ] in source Blood data Erythrocy 4.2 - 5.4 M/mm3 Normal No Sep 30 apolinar informati 2017 9:58 [#/volume on in AM ] in source Amniotic data fluid Erythrocy 11.5 - % Normal No Sep 30 te 17.5 informati 2017 9:58 distribut on in AM ion width source [Entitic data volume] by Automated count Leukocyte 4.8 - K/mm3 Normal No Sep 30 s 10.8 informati 2017 9:58 [#/volume on in AM ] in source Blood data Differential panel, method unspecified - Observa Value Referen Units Interpr Notes Date tion ce etation Range Eosinophi 0 - 3 % Normal No Sep 30 ls/100 informati 2017 9:58 leukocyte on in AM s in source Blood by data Manual count LYMPH 13 10 - 50 % Normal No Sep 30 informa 2017 tion in 9:58 AM source data Monocytes 2 - 9 % Normal No Sep 30 /100 informati 2017 9:58 leukocyte on in AM s in source Blood by data Automated count Platele NORMAL No No No No Sep 30 ts informa informa informa informa 2017 [Presen tion in tion in tion in tion in 9:58 AM ce] in source source source source Blood data data data data by Light microsc opy Neutrophi 42 - 76 % High No Sep 30 ls informati 2017 9:58 [#/volume on in AM ] in source Blood by data Automated count Cells No #CELLS No No Sep 30 Counted informati informati informati 2017 9:58 Total [#] on in on in on in AM in Blood source source source data data data
--- OUTSIDE RECORDS SUMMARY | 2017-03-18 17:42 | External Medical Summary Rpt ---
Author Author , JIM FERNANDEZ Address Unknown Phone [email or web address] Immunization Name Date Rout CVX Reac Dose [...]
== END 2017-03-07 11:23 | disposition home or self-care (01) ==
LOC: UTC 09:24
PROVIDERS: Nurse Practitioner Family
DX: R11.11 Vomiting without nausea (principal); K92.1 Melena; Z88.8 Allergy status to other drugs, medicaments and biological substances; Z85.01 Personal history of malignant neoplasm of esophagus

== ENCOUNTER 2017-04-21 09:55 | Day surgery (SDC) | payer MEDICARE, MEDICAID ==
[~2017-04-21 09:55] MED LIST: BACTRIM SUSP 1100 ML PO; LOMOTIL 2.5MG.2.5 MG PO; MAGMTHWSH PO; MIRALAX17 GM/DOSE PO; OCUVITE LUTEIN1 CAP PO; PRILOSEC20 MG PO; REGLAN10 M1 PO; SENNA SOFT15 MG PO; ZOFRAN4 MG PO
--- NOTE | 2017-04-21 11:45 | Operative Note ---
Endoscopy Report Date: 04/21/17 Preoperative diagnosis: History of esophageal cancer Procedure Type of procedure: Esophagogastroduodenoscopy with biopsies Indications: Patient is a 66-year-old white female. She is normally under the care of Dr. Lebron Baez. She has a history previously of esophageal cancer for which she underwent radiation therapy. She had been followed by Dr. Georges Bucio. She's had at least 16 or 17 upper endoscopies over the past 10 years since her diagnosis of esophageal cancer in February 2007. She had numerous dilatations. Most recent upper endoscopies revealed no stricture or recurrence. She is sent to the office to schedule follow-up upper endoscopy. There was also possible concern for need for colonoscopy. She had some rectal bleeding several weeks ago and saw Eyal Pacheco in the urgent treatment center. However, patient refuses to have a colonoscopy at this time. Consent was obtained and patient was taken to same-day surgery endoscopy procedure room. She was positioned in a lateral decubitus position. Adequate intravenous sedation was achieved. Olympus endoscope was inserted via the oropharynx. Proximal esophagus appeared unremarkable. Distal esophagus had findings consistent with radiation-induced esophagitis from approximately 15 cm to 30 cm from the incisors. Gastroesophageal junction was identified at approximately 29 and 30 cm. There was no evidence of any obvious esophageal cancer recurrence. Stomach was cannulated and insufflated. Retroflexion revealed large sliding hiatal hernia. There is some diffuse nonerosive gastritis. Gastric diverticulum from previous PEG site was identified and unremarkable. Gastric antral mucosal biopsy was obtained for CLOtest for H. pylori. Pylorus was traversed and duodenum appeared unremarkable. Gastric mucosal biopsy was obtained. Several biopsies were obtained at the gastroesophageal junction. Biopsies were obtained at several different levels in the distal esophagus to assess for microscopic recurrence. Endoscope was withdrawn. Findings 1. Gastritis 2. esophagitis 3. Hiatal Hernia Follow-Up Follow-Up: Follow-up on the biopsy results. Likely plan for follow-up upper endoscopy one year. at [id number]
[2017-04-21 13:43] VITALS: BP 124/67
== END 2017-04-21 12:33 | disposition home or self-care (01) ==
LOC: SDC 09:55
PROVIDERS: Surgery
PROC: 0DB78ZX Excision of Stomach, Pylorus, Via Natural or Artificial Opening Endoscopic, Diagnostic (ICD-10-PCS; 2017-04-21)
PROC: 0DB68ZX Excision of Stomach, Via Natural or Artificial Opening Endoscopic, Diagnostic (ICD-10-PCS; 2017-04-21)
PROC: 0DB58ZX Excision of Esophagus, Via Natural or Artificial Opening Endoscopic, Diagnostic (ICD-10-PCS; 2017-04-21)
PROC: 0DB48ZX Excision of Esophagogastric Junction, Via Natural or Artificial Opening Endoscopic, Diagnostic (ICD-10-PCS; principal; 2017-04-21 11:00)
DX: K20.8 Other esophagitis (principal); K44.9 Diaphragmatic hernia without obstruction or gangrene; K29.70 Gastritis, unspecified, without bleeding; Z85.01 Personal history of malignant neoplasm of esophagus